=== PATIENT | male | born 1965 | race Caucasian/White ===

== ENCOUNTER 2019-07-14 07:28 | Emergency (ER) | payer BC, SELFPAY ==
[2019-07-14 07:30] VITALS: BP 169/95; PULSE 83; RESP 17; TEMP 35.9; O2SAT 98; BMI 27.6
--- NOTE | 2019-07-14 07:39 | ED.VIS.GEN ---
History of Present Illness Chief Complaint: Rash Narrative: This patient is a 53-year-old male who presents with chief complaint of shingles. He does have a history of shingles on multiple prior occasions. He initially began to have pain yesterday and then developed a rash. This is at his lower back and similar to prior episodes of shingles. He otherwise denies any recent illness. Past Medical History - Allergies and Home Meds Allergies/Adverse Reactions: Allergies promethazine [From Phenergan] Adverse Reaction (Verified 07/14/19 07:29) Swelling Primary Care Physician: Mateo Barney MD [Primary Care Provider] - Past Medical History: - - Peripheral vascular disease Smoking Status: Current every day smoker Review of Systems All systems negative except as indicated General: Denies: Fever Cardiovascular: Denies: Chest pain Respiratory: Denies: Dyspnea Gastrointestinal: Denies: Nausea, Vomiting Skin: Reports: Rash Physical Exam Vital Signs/Narrative: Vital Signs Temp Pulse Resp BP Pulse Ox 07/14/19 07:30 96.7 F L 83 17 169/95 H 98 Inital Vital Signs reviewed: Yes General: Well nourished Head: Normocephalic Eyes: EOMI ENT: Moist mucous membranes Cardiovascular: Regular rate Respiratory: No distress Skin: Rash - Patient has a vesicular rash on the lower back at about the L4 dermatome on the right Neurological: Alert Psychological: Normal affect Diagnostic/Tx/Re-eval - Medical Decision Making Patient's presentation is consistent with herpes zoster. He was prescribed acyclovir as well as a short course of [place] for acute pain control. He was advised to follow-up as an outpatient but does understand return for new or worsening symptoms and was discharged home. ED Disposition - Plan for ED Patient: Disposition: Home or Assisted Living Diagnosis: Shingles Instructions: ED Shingles Prescriptions: Hydrocodone Bitart/Apap 5-325 [[place] 5MG-325MG] 1 tab PO Q6H PRN PRN 3 Days #10 tab PRN Reason: Pain Prescription Printed Acyclovir [Zovirax] 800 mg PO 5X/DAY #35 tab Prescription Printed Referrals: Mateo Barney MD [Primary Care Provider] -
== END 2019-07-14 08:07 | disposition home or self-care (01) ==
LOC: ED 08:05
PROVIDERS: Emergency Provider Emergency Medicine; PCP Family Medicine
DX: B02.9 Zoster without complications (principal); F17.200 Nicotine dependence, unspecified, uncomplicated
CPT/HCPCS: 99282

== ENCOUNTER → 2019-12-31 11:36 | Outpatient (REF) | payer BC, SELFPAY | LOC: LABSPEC 11:36 | PROVIDERS: PCP Family Medicine; Visit Provider Family Medicine | DX: Z03.818 Encounter for observation for suspected exposure to other biological agents ruled out (principal) | CPT/HCPCS: 87635; U0003 ==

== ENCOUNTER 2020-03-16 08:06 | Emergency (ER) | payer BC, SELFPAY ==
[2020-03-16 08:08] VITALS: BP 149/40; PULSE 85; RESP 16; TEMP 35.8; O2SAT 97; BMI 26.6
[2020-03-16 08:11] VITALS: BP 149/40; PULSE 85; RESP 16; TEMP 35.8; O2SAT 97
--- NOTE | 2020-03-16 08:28 | RAD_ITS ---
STUDY: X-RAY CHEST REASON FOR EXAM: Male, 54 years old. SOB, nausea TECHNIQUE: Single AP portable view of the chest. COMPARISON: Comparison is made with prior study dated 09/11/2010. FINDINGS: EKG electrodes are seen. The lungs are clear and expanded. There is no demonstrated pleural abnormality. Normal size heart. Normal mediastinum and charo. Normal visualized pulmonary arteries. Normal visualized aortic arch and descending thoracic aorta. Normal visualized thoracic spine. Normal visualized ribs, clavicles, and shoulders. There is no demonstrated abnormality of the visualized soft tissue structures of the upper abdomen. RAD/Chest 1 View (Portable) IMPRESSION: Normal x-ray examination of the chest. Electronically Signed: Ryan Iglesias MD at 9:23 EST , Service support ,
--- NOTE | 2020-03-16 08:29 | ED.DCSUM_ITS ---
History of Present Illness Chief Complaint: Shortness of Breath Detail of Chief Complaint: Headache, nausea, vomiting, diarrhea Informant: Patient Onset: Days - 2 days Context: Gradual Onset Current Severity: Moderate Maximum Severity: Moderate Narrative: Patient presents with a migraine headache that started 2 days ago. He describes it as diffuse and location and throbbing in nature. He states typically he will take ibuprofen or Tylenol for his migraines but this did not help. He has had nausea and vomiting secondary to pain. He is also had diarrhea and some lower abdominal pain. He does describe some mild shortness of breath. No fever or chills. Patient states he did have a positive rapid Covid test in January however the confirmatory PCR test was negative. - Past Medical History (1) Migraines Status: Chronic Past Medical History - Allergies and Home Meds Allergies/Adverse Reactions: Allergies promethazine [From Phenergan] Adverse Reaction (Verified 03/16/20 08:08) Swelling Primary Care Physician: Mateo Barney MD [Primary Care Provider] - Prior records reviewed: Yes Smoking Status: Current every day smoker Review of Systems General: Denies: Chills, Fever Eyes: Denies: Visual changes - bilaterally ENT: Denies: Bilateral ear pain Cardiovascular: Denies: Chest pain Respiratory: Reports: Dyspnea, Cough Gastrointestinal: Reports: Abdominal pain, Nausea, Vomiting, Diarrhea Musculoskeletal: Denies: Swelling, Extremity Pain Neurological: Reports: Headache Hematologic: Denies: Easy bruising, Easy bleeding Allergy: Denies: Uticaria Physical Exam Vital Signs/Narrative: Vital Signs Temp Pulse Resp BP Pulse Ox 03/16/20 08:11 96.5 F L 85 16 149/40 H 97 03/16/20 08:08 96.5 F L 85 16 149/40 H 97 Inital Vital Signs reviewed: Yes General: Well nourished, Well developed Head: Normocephalic ENT: Moist mucous membranes Neck: Supple Cardiovascular: Regular rate, Regular rhythm Respiratory: No distress, CTA bilaterally Abdomen: Soft, Normal bowel sounds, Tender - Mild periumbilical tenderness.. N egative for: Guarding, Rebound tenderness Extremities: Nontender Skin: Normal color Neurological: Alert, Oriented x3 Psychological: Normal affect Diagnostic/Tx/Re-eval Chest X-Ray - ED: 1 View, Read by ED Physician, Chronic Changes Impressions Chest X-Ray 03/16/20 08:28 IMPRESSION: Normal x-ray examination of the chest. Electronically Signed: Ryan Iglesias MD at 9:23 EST , Service support , 03/16/20 08:28 Chest 1 View (Portable) [RAD] Stat Laboratory Results 03/16/20 03/16/20 03/16/20 08:40 08:40 09:04 WBC 11.1 H RBC 5.27 Hgb 15.6 Hct 47.0 MCV 89.2 MCH 29.6 MCHC 33.2 RDW Std Deviation 42.0 RDW Coeff of Taras 13.0 Plt Count 156 MPV 10.9 Immature Gran % (Auto) 0.500 Neut % (Auto) 66.6 Lymph % (Auto) 24.8 [place] % (Auto) 5.9 Eos % (Auto) 1.7 Baso % (Auto) 0.5 Absolute Neuts (auto) 7.4 Absolute Lymphs (auto) 2.76 Nucleated RBC % 0 Sodium Cancelled Potassium Cancelled Chloride Cancelled Carbon Dioxide Cancelled Anion Gap Cancelled BUN Cancelled Creatinine Cancelled Estim Creat Clear Calc Cancelled Est GFR (MDRD) Af Amer Cancelled Est GFR (MDRD) Non-Af Cancelled BUN/Creatinine Ratio Cancelled Glucose Cancelled Calcium Cancelled Urine Color Yellow Urine Clarity Clear Urine pH 5.0 Ur Specific [place] 1.020 Urine Protein Negative Urine Glucose (UA) Normal Urine Ketones Negative Urine Occult Blood 10 H Urine Nitrite Negative Urine Bilirubin Negative Urine Urobilinogen Normal Ur Leukocyte Esterase 25 H Urine RBC 0-5 SEEN Urine WBC 0-5 SEEN Ur Squamous Epith Cells 0-5 SEEN Urine Bacteria RARE Urine Mucus RARE 03/16/20 03/16/20 09:04 09:42 WBC RBC Hgb Hct MCV MCH MCHC RDW Std Deviation RDW Coeff of Taras Plt Count MPV Immature Gran % (Auto) Neut % (Auto) Lymph % (Auto) [place] % (Auto) Eos % (Auto) Baso % (Auto) Absolute Neuts (auto) Absolute Lymphs (auto) Nucleated RBC % Sodium Cancelled 142 Potassium Cancelled 4.1 Chloride Cancelled 112 H Carbon Dioxide Cancelled 27.0 Anion Gap Cancelled 3 L BUN Cancelled 14 Creatinine Cancelled 0.94 Estim Creat Clear Calc Cancelled 96.31 Est GFR (MDRD) Af Amer Cancelled 106 Est GFR (MDRD) Non-Af Cancelled 88 BUN/Creatinine Ratio Cancelled 14.8 Glucose Cancelled 109 H Calcium Cancelled 8.4 L Urine Color Urine Clarity Urine pH Ur Specific [place] Urine Protein Urine Glucose (UA) Urine Ketones Urine Occult Blood Urine Nitrite Urine Bilirubin Urine Urobilinogen Ur Leukocyte Esterase Urine RBC Urine WBC Ur Squamous Epith Cells Urine Bacteria Urine Mucus - Medical Decision Making Patient was given Toradol, Reglan, Benadryl, and IV fluids. On repeat evaluation headache is much improved. Chest x-ray is unremarkable. Blood work normal. Covid is pending at this time but will not change her management. Patient will be discharged and if his test is positive he will be contacted. He is comfortable with this plan. He is written off work tomorrow as well. ED Disposition - Plan for ED Patient: Disposition: Home or Assisted Living Diagnosis: Migraine, Viral syndrome Instructions: ED, Migraine (Classical), ED Viral Syndrome (Adult) Referrals: Mateo Barney MD [Primary Care Provider] - 1 Week if not improving
[2020-03-16 08:37] VITALS: O2SAT 98
[2020-03-16] MEDS: DiphenhydrAMINE 50 MG/ML Syringe 25 MG IV (08:42)
[2020-03-16] MEDS: 0.9% Normal Saline 1,000 ML 1000 ML IV (08:42)
[2020-03-16] MEDS: Ketorolac 30 MG/ML Syringe IV (08:43)
[2020-03-16] MEDS: Metoclopramide 10 MG/2 ML Vial IV (08:43)
[2020-03-16 08:52] LABS: Absolute Lymphocyte Count 2.76 X10^3/uL (0.83-4.51); Absolute Neutrophil Count 7.4 X10^3/uL (2.0-7.7); Basophil# 0.05 X10^3/uL; Basophil% 0.5 % (0-1); Eosinophil# 0.19 X10^3/uL; Eosinophils% 1.7 % (0-5); Hemoglobin 15.6 g/dL (13.0-16.5); Lymphocyte # 2.76 X10^3/ul (4.0); Lymphocyte % 24.8 % (19-41); Mean Corp Hgb Conc 33.2 g/dL (32-36); Mean Corpuscular Hgb 29.6 pg (27.0-32.0); Mean Corpuscular Volume 89.2 fL (80-94); Mean Platelet Vol. 10.9 fl (6.2-12.0); Monocyte# 0.65 X10^3/uL; Monocyte% 5.9 % (0-10); NRBC Flagged by Analyzer 0 % (0-5); Neutrophil # 7.41 X10^3/uL (2.7-7.7); Neutrophil % 66.6 % (47-70); Platelet Count 156 K/mm3 (150-450); Red Blood Count 5.27 M/mm3 (4.6-6.2); White Blood Count 11.1 K/mm3 (4.4-11.0)
[2020-03-16 09:17] LABS: Color, Urine Yellow (Yellow); Glucose, Dipstick Normal (Normal); Ketone-Dipstick Negative (Negative); Leukocyte Esterase-Dipstick 25 /ul (Negative); Nitrite-Dipstick Negative (Negative); Occult Blood-Urine 10 /ul (Negative); Protein-Dipstick Negative (Negative); Urine Bilirubin Dipstick Negative (Negative); Urine Clarity Clear (Clear); Urine Urobilinogen Normal (Normal)
[2020-03-16 09:25] LABS: Bacteria RARE /hpf (None Seen); Mucous, Urine RARE /hpf (<or=2+); Red Blood Cells-Urine 0-5 SEEN /hpf (0-5); Squamous Epithelial Cells - UA 0-5 SEEN /hpf (0-5); White Blood Cells 0-5 SEEN /hpf (0-5)
[2020-03-16 09:36] VITALS: BP 148/94; PULSE 76; RESP 14; TEMP 36.1; O2SAT 98
[2020-03-16 10:11] LABS: Anion Gap 3 (5-15); BUN 14 mg/dL (7-18); BUN/Creat Ratio 14.8 RATIO (10-20); Calcium,Total 8.4 mg/dL (8.5-10.1); Chloride 112 mmol/L (98-107); Creatinine, Serum 0.94 mg/dL (0.70-1.30); EST Glomerular Filtration Rate 88 mL/min (>60); Est Glom Filt Rate - Afr Amer 106 mL/min (>60); Estimated Creatinine Clearance 96.31 ml/min; Glucose 109 mg/dL (74-106); Potassium 4.1 mmol/L (3.5-5.1); Sodium Level 142 mmol/L (136-145)
[2020-03-16 10:47] VITALS: BP 149/86; PULSE 69; RESP 13; O2SAT 97
== END 2020-03-16 10:49 | disposition home or self-care (01) ==
PROVIDERS: Emergency Provider Emergency Medicine; PCP Family Medicine
DX: G43.909 Migraine, unspecified, not intractable, without status migrainosus (principal); B34.9 Viral infection, unspecified; F17.200 Nicotine dependence, unspecified, uncomplicated
CPT/HCPCS: 36415; 71045; 80048; 81001; 85025; 87635; 96361; 96374; 96375; 99283; J7030; A4216; U0002

== ENCOUNTER 2020-05-10 09:30 | Emergency (ER) | payer BC, SELFPAY ==
[2020-05-10 09:32] VITALS: BP 140/113; PULSE 77; RESP 14; TEMP 36.2; O2SAT 97; BMI 26.9
--- NOTE | 2020-05-10 10:41 | CT_ITS ---
STUDY: CT ABDOMEN AND PELVIS WITH CONTRAST REASON FOR EXAM: Male, 54 years old. Abdominal pain. Recent cholecystectomy. -- IV PO Contrast RADIATION DOSAGE (If Supplied By Facility): CTDIvol = ( 16.51 ) mGy, DLP = ( 1054.09 ) mGycm TECHNIQUE: Transaxial images were obtained from the dome of the diaphragm to the symphysis pubis with oral contrast. Oral and amp; IV Gastrografin and amp; 100mL Isovue-300 was administered. Sagittal and coronal images were reconstructed. Individualized dose optimization techniques were used for this CT. COMPARISON: Comparison is made with prior examination dated 09/08/2010. FINDINGS: Minimal degree of increased markings at the lung bases suggestive of atelectasis. Coronary artery calcification. There is decreased attenuation of the liver consistent with steatosis. The patient is status post cholecystectomy. Normal spleen. Normal pancreas. Normal bilateral adrenal glands. There is a 1.87 m cyst in the upper pole of the right kidney. 3 mm nonobstructive calculus in the midpole calyx of the right kidney. One centimeters cyst in the medial inferior pole of the right kidney. Small cysts in the left kidney. Normal visualized stomach. Normal small intestine. Normal colon. The appendix is visualized and appears normal. There is scattered atherosclerotic calcification of the abdominal aorta, without a demonstrated aneurysm. Normal inferior vena cava. Normal retroperitoneum. Normal urinary bladder. Normal abdominal wall. Straightening of the normal lumbar lordosis. CT/Abdomen/Pelvis WITH Contrast IMPRESSION: Mild degree of fatty infiltration of the liver. Mild degree of basilar atelectasis. Small bilateral renal cysts. No acute abnormality is seen. Electronically Signed: Ryan Iglesias MD at 13:09 EDT , Service support ,
--- NOTE | 2020-05-10 10:46 | ED.VISSUMM ---
- ER Visit Summary Date of Service: 05/10/20 Chief Complaint: Abdominal pain History of Present Illness: The patient is a 54 M who presents with abdominal pain that began yesterday. Patient states that it is gradually gotten worse. Patient states the pain is diffuse. Patient describes the pain is sharp. Patient states the pain is worse with standing and better with laying down. Patient admits to some nausea but denies any vomiting. Patient denies any diarrhea, melena, or hematochezia. Patient denies any dysuria or hematuria. Patient states the pain does radiate into his back. Patient states he had a cholecystectomy [address] Eubanks. Patient states he called his office and the patient was referred to the emergency department. Physical Examination: Vital signs are stable except for an elevated blood pressure 140/113. Patient is afebrile. Patient is in no acute distress. Oral mucosa is pink and moist. Neck is supple. Trachea is midline. There is no JVD. Heart was regular rate and rhythm. Lungs are clear and equal bilateral. Abdomen is soft. Bowel sounds are hypoactive. There is diffuse tenderness. There is no rebound or guarding noted. Cranial nerves II through XII are intact. There is no focal motor or sensory deficit noted. Extremities are intact. There is no calf tenderness or edema. Test Results: CBC shows a slight leukocytosis of 11.3. Comprehensive metabolic profile was obtained and was within normal limits with the exception of a slightly elevated alk phos of 119 and a glucose of 161. Lipase was normal. Urinalysis does not show any evidence of urinary tract infection. CT scan of the abdomen pelvis was obtained. There is no acute abnormality noted. This was interpreted by the radiologist and reviewed by myself. Emergency Department Course and Treatment: Was given morphine and Zofran initially. Patient had no improvement with this. Patient was given a dose of Dilaudid. Patient had some improvement with this but his pain started to come back. Patient was given a repeat dose of Dilaudid. Patient is feeling comfortable on reevaluation. Patient was given a prescription for short course of Percocet. Case was discussed with Dr. Eubanks. He will follow up with the patient in the office. Patient understood and was agreeable with the plan. All questions were answered. Disposition: Discharge home Impression: 1. Abdominal pain This note was generated with [employer] software. It may contain incorrect words, spelling, and punctuation that were not noted in review of the chart prior to signing ED Disposition - Plan for ED Patient: Disposition: Home or Assisted Living Diagnosis: Abdominal pain Instructions: ED Unknown Causes of Abdominal ... Referrals: Heber Eubanks MD [STAFF PHYSICIAN] - 3-5 Days
[2020-05-10] MEDS: Morphine 4 MG/ML Syringe IV (10:48)
[2020-05-10] MEDS: 0.9% Normal Saline 1,000 ML 1000 ML IV (10:48)
[2020-05-10] MEDS: Ondansetron 4 MG/2 ML Vial IV (10:49)
[2020-05-10 10:50] LABS: Absolute Lymphocyte Count 3.34 X10^3/uL (0.83-4.51); Basophil# 0.03 X10^3/uL; Basophil% 0.3 % (0-1); Eosinophil# 0.21 X10^3/uL; Eosinophils% 1.9 % (0-5); Hematocrit 47.3 % (40-54); Hemoglobin 15.4 g/dL (13.0-16.5); Lymphocyte # 3.34 X10^3/ul (4.0); Lymphocyte % 29.6 % (19-41); Mean Corp Hgb Conc 32.6 g/dL (32-36); Mean Corpuscular Hgb 29.2 pg (27.0-32.0); Mean Corpuscular Volume 89.8 fL (80-94); Mean Platelet Vol. 11.3 fl (6.2-12.0); Monocyte# 0.62 X10^3/uL; Monocyte% 5.5 % (0-10); NRBC Flagged by Analyzer 0 % (0-5); Neutrophil # 7.04 X10^3/uL (2.7-7.7); Neutrophil % 62.4 % (47-70); Platelet Count 167 K/mm3 (150-450); RBC Distribution Width CV 12.6 % (11.6-14.6); RBC Distribution Width SD 41.6 fl (35.1-43.9); Red Blood Count 5.27 M/mm3 (4.6-6.2); White Blood Count 11.3 K/mm3 (4.4-11.0)
[2020-05-10 11:06] LABS: ALB/GLOB Ratio 0.8 RATIO (0.9-2.4); AST(SGOT) 14 U/L (15-37); Alanine Aminotransfer ALT/SGPT 30 U/L (16-61); Albumin, Serum 3.4 g/dL (3.2-5.0); Alkaline Phosphatase 119 U/L (45-117); Anion Gap 6 (5-15); BUN 14 mg/dL (7-18); BUN/Creat Ratio 13.5 RATIO (10-20); Calcium,Total 9.3 mg/dL (8.5-10.1); Chloride 106 mmol/L (98-107); Creatinine, Serum 1.04 mg/dL (0.70-1.30); EST Glomerular Filtration Rate 78 mL/min (>60); Est Glom Filt Rate - Afr Amer 95 mL/min (>60); Estimated Creatinine Clearance 84.47 ml/min; Globulin 4.1 g/dL (2.2-4.2); Glucose 161 mg/dL (74-106); Lipase 129 U/L (73-393); Potassium 4.1 mmol/L (3.5-5.1); Protein, Total 7.5 g/dL (6.4-8.2); Sodium Level 138 mmol/L (136-145)
[2020-05-10] MEDS: HYDROmorphone 0.5 MG/0.5 ML SYRINGE IV (11:25)
[2020-05-10 11:57] LABS: Mucous, Urine 0 SEEN /hpf (<or=2+); Red Blood Cells-Urine 0 SEEN /hpf (0-5); Squamous Epithelial Cells - UA 0 SEEN /hpf (0-5); White Blood Cells 0 SEEN /hpf (0-5)
[2020-05-10 11:59] LABS: Color, Urine Yellow (Yellow); Glucose, Dipstick Normal (Normal); Ketone-Dipstick Negative (Negative); Leukocyte Esterase-Dipstick Negative /ul (Negative); Nitrite-Dipstick Negative (Negative); Occult Blood-Urine Negative /ul (Negative); Protein-Dipstick Negative (Negative); Specific Gravity, Urine 1.015 (1.002-1.030); Urine Bilirubin Dipstick Negative (Negative); Urine Clarity Clear (Clear); Urine Urobilinogen Normal (Normal)
[2020-05-10 12:10] LABS: Amorphous Sediment R; Bacteria RARE /hpf (None Seen)
== END 2020-05-10 14:10 | disposition home or self-care (01) ==
PROVIDERS: Emergency Provider Emergency Medicine
DX: R10.84 Generalized abdominal pain (principal); Z72.0 Tobacco use
CPT/HCPCS: 74177; 80053; 81001; 83690; 85025; 96374; 96375; 99284; J7030; Q9967; A4216; J2405

== ENCOUNTER 2020-07-16 12:40 | Emergency (ER) | payer BC, SELFPAY ==
[2020-07-16 12:41] VITALS: BP 133/93; PULSE 105; RESP 16; TEMP 36.3; O2SAT 96; BMI 25.7
[2020-07-16] MEDS: 0.9% Normal Saline 1,000 ML 1000 ML IV (13:06)
--- NOTE | 2020-07-16 13:06 | EDS_ITS ---
HPI History of Present Illness Chief Complaint: Hyperglycemia Informant: patient Onset/Context/Timing Onset: Days Context: Gradual Onset Timing: Continuous Current Severity: Moderate Maximum Severity: Moderate Narrative Narrative: The patient is a 54-year-old male with medical history significant for coronary vascular disease and hypertension who presents to the emergency department with elevated blood sugar. The patient states starting on Sunday, he began to have some dizziness and intermittent blurred vision. He states that he works at a [employer]. He took his blood sugar today and it was 400. He has no history of diabetes. He has not been on any prednisone recently. He denies change in diet. Has not had fever or chills. He is otherwise been in his normal state of health. Prior similar symptoms: No Recent Illness/Hospitalization: No PFSH PFSH Medical History Cholecystectomy planned Coronary artery disease GERD (gastroesophageal reflux disease) Hyperlipidemia Home Medications multivitamin [Daily Multiple Vitamin] 1 ea PO DAILY 12/07/16 [History Last Taken Unknown] aspirin 81 mg PO DAILY@0800 03/16/20 [History Last Taken Unknown] atorvastatin 20 mg PO DAILY 05/10/20 [History Last Taken Unknown] clopidogrel 75 mg PO DAILY 05/10/20 [History Last Taken Unknown] metformin 500 mg PO BID #60 tab 07/16/20 [Rx Last Taken Unknown] omeprazole 20 mg PO DAILY 07/16/20 [History Last Taken Unknown] Allergy/AdvReac Type Severity Reaction Status Date / Time simvastatin Allergy NEEDS Verified 07/16/20 12:44 FOLLOW-UP tramadol Allergy NEEDS Verified 07/16/20 12:44 FOLLOW-UP varenicline Allergy NEEDS Verified 07/16/20 12:44 FOLLOW-UP promethazine [From Phenergan] AdvReac Swelling Verified 05/10/20 09:32 Social History Smoking Status: Current every day smoker tobacco type: cigarettes ROS ROS ED Constitutional Constitutional ED: Denies chills or fever(s) Eyes Eyes: Reports blurry vision ENT ENT ED: Denies ear pain or sore throat Cardiovascular Cardiovascular: Denies chest pain or palpitations Respiratory/Chest Respiratory/Chest: Denies cough, dyspnea or dyspnea on exertion Gastrointestinal Gastrointestinal: Denies abdominal pain, nausea or vomiting Genitourinary Genitourinary ED: Denies dysuria or urinary frequency Musculoskeletal Musculoskeletal: Denies arthralgias or myalgias Integumentary Denies rash Neurologic Neurologic: Denies headache(s) or paresthesias Psychiatric Psychiatric: Denies anxiety or depression Endocrine Endocrinology: Reports polydipsia and polyuria Allergic/Immunologic Allergic/Immunologic ED: Denies urticaria EXAM Physical Exam Const Vital Signs: 07/16/20 12:41 07/16/20 12:49 Temperature 97.3 F L Temperature Source Temporal Pulse Rate 105 H Respiratory Rate 16 Respiratory Effort Normal Non-Labored Respiratory Pattern Normal Blood Pressure 133/93 H Blood Pressure Mean 106 Pulse Ox 96 Oxygen Delivery Method Room Air Positive well nourished and well developed General Appearance ED: well developed HEENT Reports normocephalic, head/scalp atraumatic and moist mucous membranes Eyes PERRL and EOMs intact bilaterally Neck no lymphadenopathy and supple General: Negative for tenderness Chest Wall inspection of chest normal Resp normal respiratory effort and clear to auscultation bilaterally Cardio regular rate, regular rhythm and no murmurs GI normal to inspection, nondistended, normoactive bowel sounds Palpation: Negative for tender, guarding or rebound tenderness present Back/Spine no CVA tenderness Cervical Spine: Negative for cervical spine tenderness Thoracic Spine / Upper Back: Negative for thoracic spinal tenderness Extremity normal to inspection General Extremety ED: Negative for tenderness Neuro oriented x3 and CN's II-XII intact bilaterally Neuro Narrative: No focal deficits appreciated. Sensorium / Orientation: alert Psych mental status grossly normal Skin no rashes or lesions noted, no wounds and skin turgor normal MDM MDM MDM Narrative Medical decision making narrative: Patient presents to the emergency department with elevated blood sugar. He has no history of diabetes. Metabolic work-up was pursued. Labs demonstrate a glucose of 474, however his bicarb is normal. His anion gap is normal. He has no serum ketones. Patient was hydrated. He is given subcutaneous insulin. He is feeling improved. Plan will be to get his blood sugar to a more appropriate level and start him on oral antihyperglycemics. He does have follow-up in place next week with his primary care. He is comfortable with this plan of care. Impression 1. 1. New onset diabetes Lab Data Attestation: I reviewed the patient's lab results. Labs: Laboratory Results - last 24 hr 07/16/20 07/16/20 07/16/20 13:05 13:05 13:05 WBC 10.9 RBC 4.97 Hgb 14.7 Hct 41.8 MCV 84.1 MCH 29.6 MCHC 35.2 RDW Std Deviation 37.1 RDW Coeff of Taras 12.2 Plt Count 137 L MPV 12.3 H Sodium 131 L Potassium 4.2 Chloride 98 Carbon Dioxide 23.0 Anion Gap 10 BUN 18 Creatinine 1.29 Estim Creat Clear Calc 68.10 Est GFR (MDRD) Af Amer 74 Est GFR (MDRD) Non-Af 61 BUN/Creatinine Ratio 14.0 Glucose 474 H* Hemoglobin A1c Calcium 8.6 Total Bilirubin 0.60 AST 27 ALT 33 Alkaline Phosphatase 189 H Total Protein 7.8 Albumin 3.3 Globulin 4.5 H Albumin/Globulin Ratio 0.7 L Acetone Level NEGATIVE 07/16/20 13:05 WBC RBC Hgb Hct MCV MCH MCHC RDW Std Deviation RDW Coeff of Taras Plt Count MPV Sodium Potassium Chloride Carbon Dioxide Anion Gap BUN Creatinine Estim Creat Clear Calc Est GFR (MDRD) Af Amer Est GFR (MDRD) Non-Af BUN/Creatinine Ratio Glucose Hemoglobin A1c 11.4 H Calcium Total Bilirubin AST ALT Alkaline Phosphatase Total Protein Albumin Globulin Albumin/Globulin Ratio Acetone Level Discharge Plan Triage Chief Complaint: Hyperglycemia ED Provider: Tristen Cheung Dx/Rx/DC Orders Instructions: ED Hyperglycemia New Susp Diabetes Prescriptions: New metformin 500 mg tablet 500 mg PO BID Qty: 60 RF: 0 No Action multivitamin [Daily Multiple] 1 EACH tablet 1 ea PO DAILY RF: 0 aspirin 81 MG tablet,chewable 81 mg PO DAILY@0800 RF: 0 atorvastatin 20 MG tablet 20 mg PO DAILY RF: 0 clopidogrel 75 MG tablet 75 mg PO DAILY RF: 0 omeprazole 20 mg Capsule,Delayed Release(Dr/Ec) 20 mg PO DAILY RF: 0 Primary Care Provider: Mateo Brantley Referrals: Mateo Brantley MD [Primary Care Provider] -
[2020-07-16 13:14] LABS: Hematocrit 41.8 % (40-54); Hemoglobin 14.7 g/dL (13.0-16.5); Mean Corp Hgb Conc 35.2 g/dL (32-36); Mean Corpuscular Hgb 29.6 pg (27.0-32.0); Mean Corpuscular Volume 84.1 fL (80-94); Mean Platelet Vol. 12.3 fl (6.2-12.0); Platelet Count 137 K/mm3 (150-450); RBC Distribution Width CV 12.2 % (11.6-14.6); RBC Distribution Width SD 37.1 fl (35.1-43.9); Red Blood Count 4.97 M/mm3 (4.6-6.2); White Blood Count 10.9 K/mm3 (4.4-11.0)
[2020-07-16 13:35] LABS: Hemoglobin A1c 11.4 % (3.8-5.6)
[2020-07-16 13:36] LABS: ALB/GLOB Ratio 0.7 RATIO (0.9-2.4); AST(SGOT) 27 U/L (15-37); Alanine Aminotransfer ALT/SGPT 33 U/L (16-61); Albumin, Serum 3.3 g/dL (3.2-5.0); Alkaline Phosphatase 189 U/L (45-117); Anion Gap 10 (5-15); BUN 18 mg/dL (7-18); Calcium,Total 8.6 mg/dL (8.5-10.1); Chloride 98 mmol/L (98-107); Creatinine, Serum 1.29 mg/dL (0.70-1.30); EST Glomerular Filtration Rate 61 mL/min (>60); Est Glom Filt Rate - Afr Amer 74 mL/min (>60); Globulin 4.5 g/dL (2.2-4.2); Glucose 474 mg/dL (74-106); Potassium 4.2 mmol/L (3.5-5.1); Protein, Total 7.8 g/dL (6.4-8.2); Sodium Level 131 mmol/L (136-145)
[2020-07-16] MEDS: Insulin Lispro 100 UNIT/ML INSULN.PEN 12 UNIT SC (13:56)
[2020-07-16 14:56] VITALS: BP 129/90; PULSE 76; RESP 14; O2SAT 98
[2020-07-16 15:00] LABS: Bedside Glucose 340 mg/dL (70-110)
[2020-07-16] MEDS: Insulin Lispro 100 UNIT/ML INSULN.PEN 10 UNIT SC (15:10)
[2020-07-16 16:01] LABS: Bedside Glucose 245 mg/dL (70-110)
[2020-07-16 16:16] VITALS: BP 119/71; PULSE 63; RESP 14; O2SAT 98
== END 2020-07-16 16:16 | disposition home or self-care (01) ==
LOC: ED 13:20
PROVIDERS: Emergency Provider Emergency Medicine; PCP Family Medicine
DX: E11.65 Type 2 diabetes mellitus with hyperglycemia (principal); I25.10 Atherosclerotic heart disease of native coronary artery without angina pectoris; K21.9 Gastro-esophageal reflux disease without esophagitis; E78.5 Hyperlipidemia, unspecified; F17.210 Nicotine dependence, cigarettes, uncomplicated; Z79.899 Other long term (current) drug therapy
CPT/HCPCS: 80053; 82009; 82962; 83036; 85027; 96360; 99283; J7030; A4216

== ENCOUNTER 2020-07-16 23:50 | Emergency (ER) | payer BC, SELFPAY ==
[2020-07-16 12:41] VITALS: BMI 25.7
[2020-07-16 23:50] VITALS: BP 170/91; PULSE 91; RESP 18; TEMP 36; O2SAT 98; BMI 26.4
[2020-07-17 00:11] LABS: Bedside Glucose > 500 mg/dL (70-110)
[2020-07-17] MEDS: metFORMIN HCl 500 MG Tablet PO (00:44)
[2020-07-17 01:21] LABS: Bedside Glucose 470 mg/dL (70-110)
--- NOTE | 2020-07-17 02:05 | EDS_ITS ---
HPI History of Present Illness Chief Complaint: Hyperglycemia Informant: patient Narrative Narrative: 54-year-old male states that he was diagnosed with diabetes today. He had a hemoglobin A1c in March that was 7.3. Today's hemoglobin A1c was 11.4. His biggest complaint is change in vision for which she saw ophthalmology who noted edema and felt that this is related to diabetes. He was started on Metformin 500 mg today but has not started it yet. While in the emergency department he received several doses of insulin. Basic blood work was reviewed. He is not dehydrated. There is no gap on today's labs. Patient return to the emergency department tonight after ingesting 2 meals taken his blood sugar which read high. His brother who is a nurse advised him to come back to the hospital. [facility] Medical History Cholecystectomy planned Coronary artery disease GERD (gastroesophageal reflux disease) Hyperlipidemia Home Medications multivitamin [Daily Multiple Vitamin] 1 ea PO DAILY 12/07/16 [History Last Taken Unknown] aspirin 81 mg PO DAILY@0800 03/16/20 [History Last Taken Unknown] atorvastatin 20 mg PO DAILY 05/10/20 [History Last Taken Unknown] clopidogrel 75 mg PO DAILY 05/10/20 [History Last Taken Unknown] omeprazole 20 mg PO DAILY 07/16/20 [History Last Taken Unknown] glimepiride [Amaryl] 2 mg PO DAILY #30 tab 07/17/20 [Rx Last Taken Unknown] metformin 500 mg PO BID #60 tab 07/17/20 [Rx Last Taken Unknown] Allergy/AdvReac Type Severity Reaction Status Date / Time simvastatin Allergy NEEDS Verified 07/16/20 23:54 FOLLOW-UP tramadol Allergy NEEDS Verified 07/16/20 23:54 FOLLOW-UP varenicline Allergy NEEDS Verified 07/16/20 23:54 FOLLOW-UP promethazine [From Phenergan] AdvReac Swelling Verified 07/16/20 23:54 Social History Smoking Status: Current every day smoker tobacco type: cigarettes ROS ROS ED Constitutional Constitutional ED: Denies chills or weight loss Eyes Eyes: Reports blurry vision and change in vision; Denies diplopia ENT ENT ED: Denies ear pain, rhinorrhea or sore throat Cardiovascular Cardiovascular: Denies chest pain, orthopnea, palpitations or racing heartbeat Respiratory/Chest Respiratory/Chest: Denies cough, dyspnea or orthopnea Gastrointestinal Gastrointestinal: Denies abdominal pain, diarrhea, nausea or vomiting Genitourinary Genitourinary ED: Denies dysuria, hematuria or urinary frequency Musculoskeletal Musculoskeletal: Denies arthralgias or myalgias Integumentary Denies abscess or rash Neurologic Neurologic: Denies headache(s) or weakness Psychiatric Psychiatric: Denies anxiety, depression, suicidal ideation or suicidal thoughts Endocrine Endocrinology: Denies polydipsia, polyphagia or polyuria Allergic/Immunologic Allergic/Immunologic ED: Denies mouth swelling, tongue swelling or urticaria EXAM Physical Exam Const Vital Signs: 07/16/20 23:50 Temperature 96.8 F L Temperature Source Temporal Pulse Rate 91 Respiratory Rate 18 Blood Pressure 170/91 H Blood Pressure Mean 117 Pulse Ox 98 Oxygen Delivery Method Room Air Positive well nourished and well developed General Appearance ED: well developed HEENT Reports normocephalic, head/scalp atraumatic and moist mucous membranes Eyes PERRL and EOMs intact bilaterally Neck no lymphadenopathy, supple and no JVD Resp normal respiratory effort and clear to auscultation bilaterally Cardio regular rate, regular rhythm and no murmurs GI normal to inspection, nondistended, normoactive bowel sounds and non-tender Palpation: soft Back/Spine no CVA tenderness and normal ROM Extremity normal to inspection General Extremety ED: Negative for edema General Extremity: Negative for edema Neuro oriented x3 and CN's II-XII intact bilaterally Sensorium / Orientation: alert Motor Exam: strength 5/5 throughout Psych mental status grossly normal Mood & Affect: Negative for depressed or tearful Skin no rashes or lesions noted and no wounds MDM MDM MDM Narrative Medical decision making narrative: I reviewed the patient's blood work from earlier in the day. Hemoglobin A1c was 11.4. I suspect the patient's blood sugars have been 400-500 for a while. He received 10 units of insulin IV as well as a dose of Metformin. I do not think the patient needs to be admitted. I think he needs to be started on appropriate medications. He should expect medication changes until he finds a regimen that keeps his blood sugars down. Patient will be discharged home. I am going to have him continue the Metformin 500 mg twice a day for the first week and also can give him Amaryl 2 mg once a day. He needs to see his doctor next week. Lab Data Labs: Laboratory Results - last 24 hr 07/16/20 07/17/20 23:59 01:14 POC Glucose > 500 H* 470 H* Discharge Plan Triage Chief Complaint: Hyperglycemia ED Provider: Heber Obrien Dx/Rx/DC Orders Clinical Impression: Diabetes mellitus, Hyperglycemia Instructions: ED Diabetic Hyperglycemia Prescriptions: New glimepiride [Amaryl] 2 mg tablet 2 mg PO DAILY Qty: 30 RF: 0 metformin 500 mg tablet 500 mg PO BID Qty: 60 RF: 0 Discontinued metformin 500 mg tablet 500 mg PO BID Qty: 60 RF: 0 No Action multivitamin [Daily Multiple] 1 EACH tablet 1 ea PO DAILY RF: 0 aspirin 81 MG tablet,chewable 81 mg PO DAILY@0800 RF: 0 atorvastatin 20 MG tablet 20 mg PO DAILY RF: 0 clopidogrel 75 MG tablet 75 mg PO DAILY RF: 0 omeprazole 20 mg Capsule,Delayed Release(Dr/Ec) 20 mg PO DAILY RF: 0 Primary Care Provider: Mateo Brantley Referrals: Mateo Brantley MD [Primary Care Provider] - As soon as possible Disposition Disposition: Home, self care
[2020-07-17 02:16] LABS: Bedside Glucose 432 mg/dL (70-110)
[2020-07-17 02:48] VITALS: BP 131/78; PULSE 78; RESP 19; O2SAT 99
== END 2020-07-17 02:49 | disposition home or self-care (01) ==
PROVIDERS: Emergency Provider Emergency Medicine; PCP Family Medicine
DX: E11.65 Type 2 diabetes mellitus with hyperglycemia (principal); Z79.84 Long term (current) use of oral hypoglycemic drugs; I25.10 Atherosclerotic heart disease of native coronary artery without angina pectoris; K21.9 Gastro-esophageal reflux disease without esophagitis; E78.5 Hyperlipidemia, unspecified; F17.210 Nicotine dependence, cigarettes, uncomplicated; Z79.899 Other long term (current) drug therapy
CPT/HCPCS: 82962; 99283; A4216

== ENCOUNTER 2021-05-10 16:13 | Emergency (ER) | payer BC, SELFPAY ==
[2021-05-10 16:14] VITALS: BP 128/100; PULSE 90; RESP 16; TEMP 36.4; O2SAT 98; BMI 23.0
--- NOTE | 2021-05-10 16:45 | EX.ED.UPPERE ---
HPI History of Present Illness HPI Narrative: Patient presents with laceration to his right hand that occurred today. Patient states he was cleaning out the back of his truck when his hand went across a piece of broken glass. Patient does not think there is any glass in the wound. Patient states the bleeding has been persistent. Patient denies any paresthesias or weakness. Patient states his last tetanus was within 5 years. Patient denies any other injuries. Chief Complaint: Laceration Informant: patient Occured/Mechanism Comment: Cut on piece of broken glass Onset/Context/Timing Onset: Today Context: Sudden Onset Timing: Continuous Quality of Pain: Burning Location: Right hand Worsened by: Nothing Relieved by: Pressure Associated Symptoms Associated Symptoms: Negative for Parasthesia, Weakness and Loss of Funtion Narrative Tetanus Immunization: <5 years PFSH PFSH Medical History Cholecystectomy planned Coronary artery disease GERD (gastroesophageal reflux disease) Hyperlipidemia Home Medications multivitamin [Daily Multiple Vitamin] 1 ea PO DAILY 12/07/16 [History Last Taken Unknown] aspirin 81 mg PO DAILY@0800 03/16/20 [History Last Taken Unknown] atorvastatin 20 mg PO DAILY 05/10/20 [History Last Taken Unknown] clopidogrel 75 mg PO DAILY 05/10/20 [History Last Taken Unknown] omeprazole 20 mg PO DAILY 07/16/20 [History Last Taken Unknown] glimepiride [Amaryl] 2 mg PO DAILY #30 tab 07/17/20 [Rx Last Taken Unknown] metformin 500 mg PO BID #60 tab 07/17/20 [Rx Last Taken Unknown] cephalexin 500 mg PO Q6 #40 capsule 05/10/21 [Rx Last Taken Unknown] Allergy/AdvReac Type Severity Reaction Status Date / Time simvastatin Allergy NEEDS Verified 05/10/21 16:15 FOLLOW-UP tramadol Allergy NEEDS Verified 05/10/21 16:15 FOLLOW-UP varenicline Allergy NEEDS Verified 05/10/21 16:15 FOLLOW-UP promethazine [From Phenergan] AdvReac Swelling Verified 05/10/21 16:15 Social History Smoking Status: Current every day smoker tobacco type: cigarettes ROS ROS ED Constitutional Constitutional ED: Denies chills or fever(s) Eyes Eyes: Denies blurry vision or change in vision ENT ENT ED: Denies rhinorrhea or sore throat Cardiovascular Cardiovascular: Denies chest pain or palpitations Respiratory/Chest Respiratory/Chest: Denies cough or dyspnea Gastrointestinal Gastrointestinal: Denies nausea or vomiting Genitourinary Genitourinary ED: Denies dysuria or hematuria Musculoskeletal Musculoskeletal: Denies back pain or neck pain Integumentary Denies abscess or rash Neurologic Neurologic: Denies headache(s) or weakness Allergic/Immunologic Allergic/Immunologic ED: Denies mouth swelling or urticaria EXAM Physical Exam Const Vital Signs: 05/10/21 16:14 Temperature 97.6 F L Temperature Source Temporal Pulse Rate 90 Respiratory Rate 16 Blood Pressure 128/100 H Blood Pressure Mean 109 Pulse Ox 98 Oxygen Delivery Method Room Air Positive well nourished and well developed General Appearance ED: well developed and NAD HEENT Reports moist mucous membranes Neck full ROM Extremity Extremity Narrative: There is a 2 cm full-thickness linear laceration over the palmar aspect of the right hand over the distal fifth metacarpal. There is moderate gapping of the wound margins. There is some mild bleeding noted. There are no foreign bodies visualized. There is good range of motion of all digits of the right hand. Sensation was intact to light touch in all digits. Capillary refill was less than 2 seconds in all digits. Neuro oriented x3, CN's II-XII intact bilaterally, moves all extremities, no focal motor deficits and no sensory deficits noted Sensorium / Orientation: alert Psych mental status grossly normal MDM MDM MDM Narrative Medical decision making narrative: X-rays of the right hand were obtained. There are 3 views. On my interpretation, there is no acute fracture. There is no acute foreign body noted. There is no dislocation. There is no soft tissue swelling. Radiologist also interpreted the x-rays and agrees. The wound was cleaned and irrigated with copious amounts of normal saline. The wound was anesthetized with 1% plain lidocaine locally. The wound was closed with 4 simple interrupted #4-0 nylon sutures under sterile technique. Patient tolerated the procedure well. Bacitracin dressing was applied. Patient was given a dose of Keflex here. Patient was given a prescription for Keflex. Patient was instructed to take Tylenol or ibuprofen as needed for pain. Patient was instructed to keep the hand elevated. Patient was instructed to follow-up with his primary care physician in 7 days for wound recheck and suture removal. Patient understood and was agreeable with the plan. All questions were answered. Discharge Plan Triage Chief Complaint: Laceration ED Provider: Stephane Rai Dx/Rx/DC Orders Clinical Impression: Laceration of hand, right Instructions: ED Laceration, Hand: All Closures Prescriptions: New cephalexin [cephalexin] 500 MG capsule 500 mg PO Q6 Qty: 40 RF: 0 No Action multivitamin [Daily Multiple] 1 EACH tablet 1 ea PO DAILY RF: 0 aspirin 81 MG tablet,chewable 81 mg PO DAILY@0800 RF: 0 atorvastatin 20 MG tablet 20 mg PO DAILY RF: 0 clopidogrel 75 MG tablet 75 mg PO DAILY RF: 0 omeprazole 20 mg Capsule,Delayed Release(Dr/Ec) 20 mg PO DAILY RF: 0 glimepiride [Amaryl] 2 mg tablet 2 mg PO DAILY Qty: 30 RF: 0 metformin 500 mg tablet 500 mg PO BID Qty: 60 RF: 0 Primary Care Provider: Mateo Brantley Referrals: Mateo Brantley MD [Primary Care Provider] - 7 Days for suture removal Disposition Disposition: Home, Self Care
--- NOTE | 2021-05-10 17:00 | RAD_ITS ---
HISTORY: Trauma, injury/Pain EXAMINATION/TECHNIQUE: XR Hand Min 3 Views: COMPARISON: None FINDINGS: BONES/JOINTS: No acute fracture or dislocation. Preservation of the joint spaces. No sclerotic or destructive changes observed. SOFT TISSUES: No soft tissue swelling or gas. No radiopaque foreign body. RAD/Hand Min 3 Views IMPRESSION: No acute bony abnormality. at 1724 Reported and signed by: Manuel Herron MD Electronically Signed: Manuel Herron MD at 17:22 EDT ,
[2021-05-10] MEDS: Lidocaine 1% (20 ml mdv) 20 ML Vial INFILT (17:03)
[2021-05-10] MEDS: Cephalexin 500 MG Capsule PO (18:21)
== END 2021-05-10 18:27 | disposition home or self-care (01) ==
PROVIDERS: Emergency Provider Emergency Medicine; PCP Family Medicine; Visit Provider Emergency Medicine
DX: S61.411A Laceration without foreign body of right hand, initial encounter (principal); W25.XXXA Contact with sharp glass, initial encounter; I25.10 Atherosclerotic heart disease of native coronary artery without angina pectoris; E78.5 Hyperlipidemia, unspecified; K21.9 Gastro-esophageal reflux disease without esophagitis; F17.210 Nicotine dependence, cigarettes, uncomplicated; Z79.82 Long term (current) use of aspirin; Z79.02 Long term (current) use of antithrombotics/antiplatelets; Z79.84 Long term (current) use of oral hypoglycemic drugs; Z79.899 Other long term (current) drug therapy
CPT/HCPCS: 12001; 73130; 99284

== ENCOUNTER 2021-10-09 10:57 | Emergency (ER) | payer BC, SELFPAY ==
[2021-10-09 10:58] VITALS: BP 118/77; PULSE 83; RESP 18; TEMP 36.7; O2SAT 98; BMI 24.8
--- NOTE | 2021-10-09 11:11 | EDS_ITS ---
HPI History of Present Illness HPI Narrative: Left hand laceration using a hand saw. Chief Complaint: Laceration Informant: patient Occured/Mechanism Mechanism/Context: Yes injury Onset/Context/Timing Onset: Today Context: Sudden Onset Timing: Continuous Current Severity: Mild Maximum Severity: Mild Associated Symptoms Associated Symptoms: Negative for Parasthesia, Weakness or Loss of Funtion Narrative Narrative: 56-year-old diabetic male states his sugars have been running well. Today was using a hand saw and accidentally cut the webspace between his left thumb and index finger. This occurred about half an hour ago. Believes his tetanus is less than 5 years old. Denies any other complaints. Tetanus Immunization: <5 years Prior similar symptoms: No Recent Illness/Hospitalization: No PFSH PFSH Medical History Cholecystectomy planned Coronary artery disease GERD (gastroesophageal reflux disease) Hyperlipidemia Home Medications multivitamin (Daily Multiple tablet) 1 ea PO DAILY 12/07/16 [History Last Taken Unknown] aspirin 81 mg chewable tablet 81 mg PO DAILY@0800 03/16/20 [History Last Taken Unknown] atorvastatin 20 mg tablet 20 mg PO DAILY 05/10/20 [History Last Taken Unknown] clopidogrel 75 mg tablet 75 mg PO DAILY 05/10/20 [History Last Taken Unknown] omeprazole 20 mg capsule,delayed release 20 mg PO DAILY 07/16/20 [History Last Taken Unknown] glimepiride 2 mg tablet (Amaryl) 2 mg PO DAILY #30 tabs 07/17/20 [Rx Last Taken Unknown] metformin 500 mg tablet 500 mg PO BID #60 tabs 07/17/20 [Rx Last Taken Unknown] cephalexin 500 mg capsule 500 mg PO Q6 #40 CAPSULES 05/10/21 [Rx Last Taken Unknown] Allergy/AdvReac Type Severity Reaction Status Date / Time simvastatin Allergy Other Verified 10/09/21 11:00 tramadol Allergy Rash Verified 10/09/21 11:00 varenicline Allergy Vomiting Verified 10/09/21 11:00 cilostazol AdvReac Abd Verified 10/09/21 11:00 cramps/diarrhea promethazine [From Phenergan] AdvReac Swelling Verified 05/10/21 16:15 Social History Smoking Status: Current every day smoker tobacco type: cigarettes ROS ROS ED ROS Narrative Denies recent illness. Review of Systems ROS Unobtainable: Denies due to encephalopathy Constitutional Constitutional ED: Denies chills or fever(s) Eyes Eyes: Denies blurry vision ENT ENT ED: Denies ear pain Cardiovascular Cardiovascular: Denies chest pain Respiratory/Chest Respiratory/Chest: Denies cough or dyspnea Gastrointestinal Gastrointestinal: Denies abdominal pain Genitourinary Genitourinary ED: Denies dysuria or hematuria Musculoskeletal Musculoskeletal: Denies back pain or myalgias Integumentary Denies abscess Neurologic Neurologic: Denies headache(s) Psychiatric Psychiatric: Denies anxiety Endocrine Endocrinology: Denies cold intolerance Hematologic/Lymphatic Hematologic/Lymphatic: Denies easy bleeding Allergic/Immunologic Allergic/Immunologic ED: Denies mouth swelling or tongue swelling EXAM Physical Exam Narrative Exam Narrative: 56-year-old male no acute distress. Vital signs stable afebrile. H EENT exam unremarkable. Lungs are clear. Heart regular rhythm. Abdomen soft nontender. Moving all 4 extremities. Neurovascular intact. Tween his left thumb and left index finger there is about a 2 cm laceration on the skin and subcu tissue which will need closed. Minimal oozing. No pulsatile bleeding. He has full range of motion all digits of his left hand. Normal sensation. No deformity. No infection. No foreign body noted. Const Vital Signs: 10/09/21 10:58 Temperature 98.1 F Temperature Source Temporal Pulse Rate 83 Respiratory Rate 18 Blood Pressure 118/77 Blood Pressure Mean 90 Pulse Ox 98 Oxygen Delivery Method Room Air Positive well nourished and well developed; Negative for obese, cachectic, contractures or unkempt General Appearance ED: well developed and NAD; Negative for unkempt, cachectic, contractures, cyanotic or diaphoretic Nutritional Appearance: Negative for cachectic or obese HEENT Reports moist mucous membranes normocephalic and atraumatic; Negative for trauma or tenderness Eyes PERRL and EOMs intact bilaterally General Eye ED: Negative for other Neck full ROM and supple General: Negative for tenderness Lymph Lymphatic: Negative for other Chest Wall inspection of chest normal and palpation of chest normal Resp normal respiratory effort and clear to auscultation bilaterally Effort and Inspection: Negative for pain with movement Auscultation: Negative for rales, rhonchi or wheezes Cardio regular rate, regular rhythm, S1 normal heart sound, S2 normal heart sound and no murmurs Rate: Negative for bradycardia Rhythm: Negative for abnormal rhythm GI non-tender, non-distended and no masses Inspection: Negative for abdominal distention Auscultation: normoactive bowel sounds Palpation: soft; Negative for tender or guarding Back/Spine no CVA tenderness General Back: Negative for CVA tenderness Cervical Spine: Negative for cervical spine tenderness Thoracic Spine / Upper Back: Negative for thoracic spinal tenderness Lumbar Spine / Lower Back: Negative for lumbar spinal tenderness or straight leg raise positive - left Extremity normal to inspection and full ROM General Extremety ED: Negative for edema General Extremity: Negative for edema Neuro oriented x3, CN's II-XII intact bilaterally, moves all extremities and no focal motor deficits Sensorium / Orientation: alert, oriented to person, oriented to place and oriented to time; Negative for orientation impaired, lethargic, stuporous or other Motor Exam: strength 5/5 throughout Psych mental status grossly normal Appearance: Negative for unkempt Attitude: No agitated Mood & Affect: Negative for depressed or anxious Skin General Skin Exam: Negative for petechiae Lesions: no lesions Rashes: no rashes Trauma: laceration; Negative for no lacerations or abrasions MDM MDM MDM Narrative Medical decision making narrative: Struck to [id number] diabetic male with a laceration to the webspace between his left thumb and index finger. He is right-hand dominant. Believes his tetanus is up-to-date. Area will be cleaned, explored and locally anesthetized and closed. Laceration closure went well. Wound care and follow-up as needed. Procedures Lacerations Left hand laceration: Length: 1.18 in Depth: Sub Q Shape: Linear Prep: Shmalia-Clens Laceration repair: Irrigated, Lidocaine, Local and Skin sutures Number of Sutures/[place]: 3 Suture Information: Ethilon, Simple and 5-0 Comment: Left hand laceration on the webspace between thumb and index finger about 2 cm in length. Cleaned using Jackie-[place]na. Washed with saline irrigated. Explored. Local anesthetized with lidocaine. Closed using 3 simple erupted 5-0 Ethilon sutures. Proper hemostasis and wound closure is obtained. Patient was instructed on wound care and suture removal in 10 to 14 days. Discharge Plan Triage Chief Complaint: Laceration ED Provider: Popeye Hurtado Dx/Rx/DC Orders Clinical Impression: Hand laceration Instructions: ED Laceration, Hand: All Closures Prescriptions: No Action multivitamin [Daily Multiple] 1 EACH tablet 1 ea PO DAILY aspirin 81 MG tablet,chewable 81 mg PO DAILY@0800 atorvastatin 20 MG tablet 20 mg PO DAILY clopidogrel 75 MG tablet 75 mg PO DAILY omeprazole 20 mg Capsule,Delayed Release(Dr/Ec) 20 mg PO DAILY glimepiride [Amaryl] 2 mg tablet 2 mg PO DAILY Qty: 30 0RF metformin 500 mg tablet 500 mg PO BID Qty: 60 0RF cephalexin [cephalexin] 500 MG capsule 500 mg PO Q6 Qty: 40 0RF Primary Care Provider: Mateo Brantley Referrals: Mateo Brantley MD [Primary Care Provider] - 10-14 Days suture removal Activity Restrictions/Additional Instructions: Keep hand dry and clean. You can clean it daily. Dry thoroughly. Apply antibiotic once to twice daily. Watch for any signs of infection such as pus, swelling, fever, red streaks is seen return. Apply antibiotic ointment daily. Stitches out in 10 to 14 days. Disposition Disposition: Home, Self Care
[2021-10-09] MEDS: Lidocaine 1% (20 ml mdv) 20 ML Vial 10 ML INFILT (12:16)
== END 2021-10-09 12:18 | disposition home or self-care (01) ==
PROVIDERS: Emergency Provider Emergency Medicine; PCP Family Medicine; Visit Provider Emergency Medicine
DX: S61.412A Laceration without foreign body of left hand, initial encounter (principal); E11.9 Type 2 diabetes mellitus without complications; I25.10 Atherosclerotic heart disease of native coronary artery without angina pectoris; F17.210 Nicotine dependence, cigarettes, uncomplicated; E78.5 Hyperlipidemia, unspecified; W27.0XXA Contact with workbench tool, initial encounter; Z79.84 Long term (current) use of oral hypoglycemic drugs; Z79.82 Long term (current) use of aspirin; Z79.899 Other long term (current) drug therapy
CPT/HCPCS: 12001; 99284

== ENCOUNTER → 2022-04-05 | Outpatient (CLI) | payer BC, SELFPAY ==
[2022-04-05 13:17] LABS: Lipase 101 U/L (73-393)
== END | disposition home or self-care (01) ==
LOC: LABSPEC 12:55
PROVIDERS: PCP Family Medicine; Visit Provider Physician Assistant
DX: R11.2 Nausea with vomiting, unspecified (principal)
CPT/HCPCS: 83690

== ENCOUNTER 2023-02-12 12:43 | Emergency (ER) | payer OTHER, SELFPAY ==
[2023-02-12 12:44] VITALS: BP 142/87; PULSE 78; RESP 14; TEMP 36.5; O2SAT 100; BMI 26.2
--- NOTE | 2023-02-12 13:42 | EDS_ITS ---
HPI History of Present Illness Chief Complaint: Back Informant: patient Narrative Narrative: Patient presents with lower back pain and some radiation to the left leg. Patient pulled some carpet out of her room about 2 weeks ago. He started to get pain afterwards. He was seen in urgent care. He was placed on prednisone for about 4 to 5 days. It looks like it was 40 mg a day. He was getting better with this. But when the med stopped a few days ago the pain started coming back. He has had the pain down his left leg off and on for this whole time. No bowel or bladder dysfunction. No constipation. No history of back surgery. No impact or fall type trauma. No weakness. No fevers or chills. No history of cancers. [facility] Medical History Cholecystectomy planned Coronary artery disease GERD (gastroesophageal reflux disease) Hyperlipidemia Home Medications multivitamin (Daily Multiple tablet) 1 ea PO DAILY 12/07/16 [History Last Taken Unknown] aspirin 81 mg chewable tablet 81 mg PO DAILY@0800 03/16/20 [History Last Taken Unknown] atorvastatin 20 mg tablet 20 mg PO DAILY 05/10/20 [History Last Taken Unknown] clopidogrel 75 mg tablet 75 mg PO DAILY 05/10/20 [History Last Taken Unknown] omeprazole 20 mg capsule,delayed release 20 mg PO DAILY 07/16/20 [History Last Taken Unknown] glimepiride 2 mg tablet (Amaryl) 2 mg PO DAILY #30 tabs 07/17/20 [Rx Last Taken Unknown] metformin 500 mg tablet 500 mg PO BID #60 tabs 07/17/20 [Rx Last Taken Unknown] cephalexin 500 mg capsule 500 mg PO Q6 #40 CAPSULES 05/10/21 [Rx Last Taken Unknown] oxycodone-acetaminophen 5 mg-325 mg tablet 1 tab PO Q6H PRN PRN Pain 3 days #12 TABLETS 02/12/23 [Rx Last Taken Unknown] prednisone 20 mg tablet 60 mg (3 x 20 mg) PO DAILY #15 TABLETS 02/12/23 [Rx Last Taken Unknown] Allergy/AdvReac Type Severity Reaction Status Date / Time simvastatin Allergy Other Verified 02/12/23 12:45 tramadol Allergy Rash Verified 02/12/23 12:45 varenicline Allergy Vomiting Verified 02/12/23 12:45 cilostazol AdvReac Abd Verified 02/12/23 12:45 cramps/diarrhea promethazine [From Phenergan] AdvReac Swelling Verified 02/12/23 12:45 Social History Smoking Status: Current every day smoker tobacco type: cigarettes ROS ROS ED ROS Narrative A complete review of systems was performed and is negative except as documented in the history of present illness. Some specific details below. Constitutional: No recent fevers or chills. No rigors. Patient has not generally felt ill. ENT: No sinus pressure or pain. No dental pain or swelling CV: No chest pain, pressure or aching. No palpitations or irregular beats. Patient has not been presyncopal or syncopal. Respiratory: No trouble breathing. No cough. No wheezing. No sputum production. No pain with breathing. GI: No abdominal pain. No nausea vomiting diarrhea. No blood in stool. No loss of bowel control. No history of AAA. Although he has no problem moving his bowels, he states when he twists around to wipe himself it causes discomfort because of the twisting. He has not noted any numbness. : No frequency dysuria or hematuria. No incontinence or urinary retention. Musculoskeletal: No recent impact trauma. The soreness did start after pulling out carpet though. No swelling. Please see history of present illness. Skin: No rash. No diaphoresis. No vesicles. Neuro: No weakness or numbness. He does have pain radiating around on the left side to the side and slight anterior aspect of the hip and a little bit down the lateral thigh. He describes it is just above the left knee. But he has not had weakness. Endocrine: No polyuria or polydipsia. EXAM Physical Exam Narrative Exam Narrative: CONSTITUTIONAL: Patient is nontoxic in appearance. But the patient does look a little uncomfortable. He prefers to lay on his right side. HEENT: No notable trauma. Mucous membranes moist. No sign of dental infection. EYES: No conjunctival injection. No pallor. NECK: No meningismus. No JVD. CARDIOVASCULAR: Regular rate. Regular rhythm. No notable murmur. No JVD. RESPIRATORY: No respiratory distress. Breathing is unlabored. No wheezes. No rhonchi. No rales. No pain with a deep breath. GASTROINTESTINAL: Not distended. Bowel sounds are normal. No tenderness. No guarding. No rebound. No palpable mass. No bruit. GENITOURINARY: No tenderness over the bladder. No CVA tenderness. MUSCULOSKELETAL: Atraumatic. No peripheral edema. No cord. No tenderness along the deep venous system. No asymmetry. Distal pulses are intact. NEUROLOGICAL: Patient is alert and oriented. No focal deficit noted. Sensation seems intact. Patient has grossly normal quad strength gait dorsal and plantar flexion Patellar reflex 1?2+ bilaterally Achilles reflex 1+ bilaterally SKIN: No noted rashes. No diaphoresis. No vesicles noted. No notable pallor. PSYCHIATRIC: Patient is calm. Mood is appropriate. Const Vital Signs: 02/12/23 12:44 Temperature 97.7 F L Temperature Source Temporal Pulse Rate 78 Respiratory Rate 14 Blood Pressure 142/87 H Blood Pressure Mean 105 Pulse Ox 100 Oxygen Delivery Method Room Air MDM MDM MDM Narrative Medical decision making narrative: We discussed options with the patient. I am concerned with the radicular pain. But he is not developing any neurologic deficits. His sensation and strength is intact. No saddle anesthesia. No fevers chills history of cancers or significant trauma. I did review his x-rays that were done last week when the patient's brought them up on [facility]. It showed some DJD but no acute process. I explained to the patient that his symptoms are consistent with a disc. We need to improve this with either medical therapy, physical therapy and time. If it is not improving he may end up having surgery for this. But he needs to exhaust conservative therapy first. Since he was getting better at 40 mg of prednisone I will put him on a slightly higher dose for 5 days. I will write for some pain meds. I did do online prescribing report review and his last narcotics for almost 2 years ago. If he develops weakness, numbness, saddle anesthesia trouble urinating or moving bowels he needs to return. He should follow-up with his physician. He may want to contact spine surgery to start the process of seeing them. Discharge Plan Triage Chief Complaint: Back ED Provider: Wero Messer Dx/Rx/DC Orders Clinical Impression: Lumbar back pain, Left lumbar radiculopathy Instructions: ED Sciatica Prescriptions: New prednisone 20 mg tablet 60 mg PO DAILY Qty: 15 0RF oxycodone-acetaminophen [oxycodone-acetaminophen] 5-325 mg tablet 1 tab PO Q6H PRN PRN (Reason: Pain) 3 Days Qty: 12 0RF No Action multivitamin [Daily Multiple] 1 EACH tablet 1 ea PO DAILY aspirin 81 MG tablet,chewable 81 mg PO DAILY@0800 atorvastatin 20 MG tablet 20 mg PO DAILY clopidogrel 75 MG tablet 75 mg PO DAILY omeprazole 20 mg Capsule,Delayed Release(Dr/Ec) 20 mg PO DAILY glimepiride [Amaryl] 2 mg tablet 2 mg PO DAILY Qty: 30 0RF metformin 500 mg tablet 500 mg PO BID Qty: 60 0RF cephalexin [cephalexin] 500 MG capsule 500 mg PO Q6 Qty: 40 0RF Primary Care Provider: Mateo Brantley Referrals: Mateo Brantley MD [Primary Care Provider] - 3-5 Days Mateo Martinez DO [Med Staff - Active Staff] - As soon as possible (Contact in the morning for follow-up appointment.) Activity Restrictions/Additional Instructions: If you get a rash with oxycodone, you can take Benadryl. Disposition Disposition: Home, Self Care
--- OUTSIDE RECORDS SUMMARY | 2023-02-12 13:53 | XMS RPT_ITS | CCD ---
Author Name Unknown Address [address] [place] [address] Organization [facility] Care Team Providers Care Bulk Delivery Driver Name Role Phone Mateo Denise MD [facility]UL[facility] HERNANDEZ Referring Unavailable MATEO DENISE Primary Care Unavailable JULISA HERNANDEZ Attending Unavailable MATEO DENISE Primary Care Unavailable MATEO DENISE Primary Care Unavailable MATEO DENISE Primary Care Unavailable DAVID YU Attending Unavailable DAVID YU Referring Unavailable JULISA HERNANDEZ Referring Unavailable CAMELIA, MATEO A Primary Care Unavailable JULISA HERNANDEZ Referring Unavailable CAMELIA, MATEO A Primary Care Unavailable JULISA HERNANDEZ Attending Unavailable MATEO DENISE Primary Care Unavailable KISHA KRISHNAMURTHY Referring Unavailable CAMELIA, MATEO A Primary Care Unavailable CAMELIA, MATEO A Primary Care Unavailable MATEO DENISE A Primary Care Unavailable MATEO DENISE Referring Unavailable CAMELIA, MATEO A Primary Care Unavailable MATEO DENISE Referring Unavailable EMILY KAY Attending Unavailable CAMELIA, MATEO A Primary Care Unavailable KISHA KRISHNAMURTHY Referring Unavailable CAMELIA, MATEO A Primary Care Unavailable Allergies Allergy Classification Reported Allergen(s) Allergy Type Date of Onset Reaction(s) Facility (20 sources) cilostazol; Translations: [CILOSTAZOL] Drug Allergy 11-04-2020 GI Upset [facility] Work Phone: (20 sources) Promethazine; Translations: [PROMETHAZINE HCL] Drug Allergy 08-06-2009 [facility] Work Phone: (20 sources) Simvastatin; Translations: [SIMVASTATIN] Drug Allergy 01-24-2011 Other: See Comments [facility] Work Phone: (20 sources) traMADol; Translations: [TRAMADOL] Drug Allergy 05-24-2012 Rash, GI Upset [facility] Work Phone: (20 sources) varenicline; Translations: [VARENICLINE] Drug Allergy 09-20-2017 Vomiting [facility] Work Phone: Medications Current Medications Medication Drug Class(es) Dates Sig (Normalized) Sig (Original) bismuth subsalicylate 262 mg chewable tablet (2 sources) Bismuth Start: 11-02-2021 End: 03-16-2022 take 1 tablet by mouth four times daily bismuth subsalicylate (PEPTO-BISMOL) 262 mg chew Take 1 tablet by mouth four times daily for 14 days. 56 tablet 0 11/02/2021 03/16/2022 Discontinued Completed/Discontinued Medications Medication Drug Class(es) Dates Sig (Normalized) Sig (Original) acetaminophen 325 mg oral tablet (19 sources) Start: 04-03-2021 take 2 tablets by mouth every four hours as needed acetaminophen (TYLENOL) 325 mg tablet Take 2 tablets by mouth every 4 hours as needed for pain. 30 tablet 0 04/03/2021 Active Problems Active Problems Problem Classification Problem Date Documented Da te Episodic/Chronic Acquired foot deformities (1 source) Tailor's bunion; Translations: [Bunionette of unspecified foot] Episodic Diabetes mellitus with complications (2 sources) Type 2 diabetes mellitus with peripheral angiopathy; Translations: [Type 2 diabetes mellitus with diabetic peripheral angiopathy without gangrene] Chronic Diabetes mellitus without complication (20 sources) Type 2 diabetes mellitus without complication; Translations: [Type 2 diabetes mellitus without complications] Onset: 1 07-16-2020 Chronic Diseases of white blood cells (1 source) Leukocytosis; Translations: [Elevated white blood cell count, unspecified] Chronic Disorders of lipid metabolism (20 sources) Mixed hyperlipidemia; Translations: [Mixed hyperlipidemia] Onset: 8 10-11-2017 Chronic Esophageal disorders (20 sources) Gastroesophageal reflux disease; Translations: [Gastro-esophageal reflux disease without esophagitis] Onset: 3 10-11-2017 Chronic Gastritis and duodenitis (1 source) Unspecified chronic gastritis without bleeding; Translations: [Atrophic gastritis, without mention of hemorrhage] Chronic Headache; including migraine (20 sources) Migraine; Translations: [Migraine, unspecified, not intractable, without status migrainosus] 09-15-2020 Chronic Mycoses (1 source) Onychomycosis; Translations: [Tinea unguium] Episodic Other and unspecified benign neoplasm (1 source) Tubular adenoma ; Translations: [Benign neoplasm, unspecified site] Episodic Other connective tissue disease (1 source) Pain of toe of left foot; Translations: [Pain in left toe(s)] Episodic Other connective tissue disease (1 source) Pain of toe of right foot; Translations: [Pain in right toe(s)] Episodic Other connective tissue disease (1 source) Pain in finger of left hand; Translations: [Pain in left finger(s)] 01-12-2023 Episodic Other connective tissue disease (1 source) Pain in left finger(s); Translations: [Pain of finger of left hand] Onset: 3 Episodic Other gastrointestinal disorders (1 source) Dysphagia; Translations: [Dysphagia, unspecified] Episodic Other upper respiratory infections (1 source) Sore throat symptom; Translations: [Acute pharyngitis, unspecified] Episodic Peripheral and visceral atherosclerosis (20 sources) Intermittent claudication; Translations: [Peripheral vascular disease, unspecified] Onset: 8 10-11-2017 Chronic Residual codes; unclassified (2 sources) Family history of cancer of colon; Translations: [Family history of malignant neoplasm of digestive organs] Episodic Residual codes; unclassified (1 source) Generalized aches and pains; Translations: [Pain, unspecified] Episodic Spondylosis; intervertebral disc disorders; other back problems (1 source) Radiculopathy, lumbar region; Translations: [Lumbar radiculopathy] Onset: 3 Episodic Substance-related disorders (20 sources) Smoker; Translations: [Nicotine dependence, unspecified, uncomplicated] Onset: 8 10-11-2017 Chronic Viral infection (1 source) Herpes zoster without complication; Translations: [Zoster without complications] 01-12-2023 Episodic Past or Other Problems Problem Classification Problem Date Documented Da te Episodic/Chronic Abdominal pain (20 sources) Right inguinal pain; Translations: [Right lower quadrant pain] Onset: 12-12-2017 12-12-2017 Episodic Nausea and vomiting (3 sources) Nausea and vomiting; Translations: [Nausea with vomiting, unspecified] Onset: 04-06-2022 Episodic Other aftercare (20 sources) Patient encounter status; Translations: [Other terminal block assembler (current) drug therapy] Onset: 10-11-2017 03-16-2021 Episodic Other aftercare (1 source) Other care home (current) drug therapy; Translations: [Medication management] Onset: 03-16-2021 Episodic Other infections; including parasitic (12 sources) History of Helicobacter pylori infection; Translations: [Personal history of other infectious and parasitic diseases] Onset: 11-03-2021 Episodic Other screening for suspected conditions (not mental disorders or infectious disease) (1 source) Encounter for screening for malignant neoplasm of prostate; Translations: [Screening for prostate cancer] Onset: 10-11-2017 Episodic Other skin disorders (19 sources) Sebaceous cyst of skin; Translations: [Sebaceous cyst] Onset: 02-14-2011 10-11-2017 Episodic Residual codes; unclassified (1 source) Pain, unspecified; Translations: [Body aches] Onset: 04-06-2022 Episodic Results Test Name Value Interpretation Reference Range Facil ity Vital Signs Date Time Vital Sign Value Performing Clinician Yakov mike 01-12-2023 11:01-0500 Body temperature 97.9 [degF] Julisa David DEPUTY DIRECTOR OF PUBLIC WORKS.RUBBER PRESS OPERATOR Work Phone: [facility] 01-12-2023 11:01-0500 Body weight 83.1 kg Julisa Hernandez DEPUTY DIRECTOR OF PUBLIC WORKS.RUBBER PRESS OPERATOR Work Phone: [facility] 01-12-2023 11:01-0500 Diastolic blood pressure 58 mm[Hg] Julisa Hernandez DEPUTY DIRECTOR OF PUBLIC WORKS.RUBBER PRESS OPERATOR Work Phone: [facility] 01-12-2023 11:01-0500 Heart rate 90 /min Julisa David DEPUTY DIRECTOR OF PUBLIC WORKS.RUBBER PRESS OPERATOR Work Phone: [facility] 01-12-2023 11:01-0500 Respiratory rate 14 /min Julisa Hernandez DEPUTY DIRECTOR OF PUBLIC WORKS.RUBBER PRESS OPERATOR Work Phone: [facility] 01-12-2023 11:01-0500 SaO2% (BldA) [Mass fraction] 94 % Julisa Hernandez DEPUTY DIRECTOR OF PUBLIC WORKS.RUBBER PRESS OPERATOR Work Phone: [facility] 01-12-2023 11:01-0500 Systolic blood pressure 120 mm[Hg] Julisa Hernandez DEPUTY DIRECTOR OF PUBLIC WORKS.RUBBER PRESS OPERATOR Work Phone: [facility] 04-06-2022 10:55-0500 Body temperature 98.01 [degF] Julisa Hernandez DEPUTY DIRECTOR OF PUBLIC WORKS.RUBBER PRESS OPERATOR Work Phone: [facility] 04-06-2022 10:55-0500 Body weight 81.01 kg Julisa Hernandez DEPUTY DIRECTOR OF PUBLIC WORKS.RUBBER PRESS OPERATOR Work Phone: [facility] 04-06-2022 10:55-0500 Diastolic blood pressure 60 mm[Hg] Julisa Hernandez DEPUTY DIRECTOR OF PUBLIC WORKS.RUBBER PRESS OPERATOR Work Phone: [facility] 04-06-2022 10:55-0500 Heart rate 93 /min Julisa Hernandez DEPUTY DIRECTOR OF PUBLIC WORKS.RUBBER PRESS OPERATOR Work Phone: [facility] 04-06-2022 10:55-0500 Respiratory rate 16 /min Julisa Hernandez DEPUTY DIRECTOR OF PUBLIC WORKS.RUBBER PRESS OPERATOR Work Phone: [facility] 04-06-2022 10:55-0500 SaO2% (BldA) [Mass fraction] 98 % Julisa Hernandez DEPUTY DIRECTOR OF PUBLIC WORKS.RUBBER PRESS OPERATOR Work Phone: [facility] 04-06-2022 10:55-0500 Systolic blood pressure 110 mm[Hg] Julisa Hernandez DEPUTY DIRECTOR OF PUBLIC WORKS.RUBBER PRESS OPERATOR Work Phone: [facility] 04-05-2022 11:42-0500 Body temperature 97.9 [degF] Kisha Krishnamurthy PA-C Work Phone: [facility] 04-05-2022 11:42-0500 Body weight 81.74 kg Kisha Krishnamurthy PA-C Work Phone: [facility] 04-05-2022 11:42-0500 Diastolic blood pressure 82 mm[Hg] Kisha Athy PA-C Work Phone: [facility] 04-05-2022 11:42-0500 Heart rate 87 /min Kisha Athy PA-C Work Phone: [facility] 04-05-2022 11:42-0500 Respiratory rate 18 /min Kisha Athy PA-C Work Phone: [facility] 04-05-2022 11:42-0500 SaO2% (BldA) [Mass fraction] 96 % Kisha Athy PA-C Work Phone: [facility] 04-05-2022 11:42-0500 Systolic blood pressure 118 mm[Hg] Kisha Athy PA-C Work Phone: [facility] 03-16-2022 06:56-0500 Body height 181 cm Emily Kay PA-C Work Phone: [facility] 03-16-2022 06:56-0500 Body weight 80.02 kg Emily Kay PA-C Work Phone: [facility] 03-16-2022 06:56-0500 Diastolic blood pressure 78 mm[Hg] Emily Kay PA-C Work Phone: [facility] 03-16-2022 06:56-0500 Heart rate 83 /min Emily Kay PA-C Work Phone: [facility] 03-16-2022 06:56-0500 Respiratory rate 16 /min Emily Kay PA-C Work Phone: [facility] 03-16-2022 06:56-0500 SaO2% (BldA) [Mass fraction] 94 % Emily Kay PA-C Work Phone: [facility] 03-16-2022 06:56-0500 Systolic blood pressure 132 mm[Hg] Emily Kay PA-C Work Phone: [facility] 11-02-2021 08:51-0400 Body temperature 97.59 [degF] Soraya [place] PA-C Work Phone: [facility] 11-02-2021 08:51-0400 Diastolic blood pressure 78 mm[Hg] Soraya Minnie PA-C Work Phone: [facility] 11-02-2021 08:51-0400 Heart rate 76 /min Soraya [place] PA-C Work Phone: [facility] 11-02-2021 08:51-0400 SaO2% (BldA) [Mass fraction] 96 % Soraya [place] PA-C Work Phone: [facility] 11-02-2021 08:51-0400 Systolic blood pressure 122 mm[Hg] Soraya Minnie PA-C Work Phone: [facility] 10-20-2021 09:20-0400 Diastolic blood pressure 67 mm[Hg] Heber Eubanks MD Work Phone: [facility] 10-20-2021 09:20-0400 Heart rate 71 /min Heber Eubanks MD Work Phone: [facility] 10-20-2021 09:20-0400 Respiratory rate 16 /min Heber Eubanks MD Work Phone: [facility] 10-20-2021 09:20-0400 SaO2% (BldA) [Mass fraction] 93 % Heber Eubanks MD Work Phone: [facility] 10-20-2021 09:20-0400 Systolic blood pressure 108 mm[Hg] Heber Eubansk MD Work Phone: [facility] 10-20-2021 07:34-0400 Body temperature 97 [degF] Heber Eubanks MD Work Phone: [facility] 10-04-2021 09:25-0400 Body height 180.3 cm Soraya Minnie PA-C Work Phone: [facility] 10-04-2021 09:25-0400 Body temperature 96.91 [degF] Soraya Minnie PA-C Work Phone: [facility] 10-04-2021 09:25-0400 Body weight 82.56 kg Soraya Minnie PA-C Work Phone: [facility] 10-04-2021 09:25-0400 Diastolic blood pressure 82 mm[Hg] Soraya Minnie PA-C Work Phone: [facility] 10-04-2021 09:25-0400 Heart rate 82 /min Soraya Minnie PA-C Work Phone: [facility] 10-04-2021 09:25-0400 SaO2% (BldA) [Mass fraction] 99 % Soraya [place] PA-C Work Phone: [facility] 10-04-2021 09:25-0400 Systolic blood pressure 138 mm[Hg] Soraya Minnie PA-C Work Phone: [facility] 10-03-2021 09:35-0400 Body weight 82.56 kg Mateo Denise MD Work Phone: [facility] 10-03-2021 09:35-0400 Diastolic blood pressure 80 mm[Hg] Mateo Denise MD Work Phone: [facility] 10-03-2021 09:35-0400 Heart rate 72 /min Mateo Denise MD Work Phone: [facility] 10-03-2021 09:35-0400 Respiratory rate 14 /min Mateo Denise MD Work Phone: [facility] 10-03-2021 09:35-0400 Systolic blood pressure 118 mm[Hg] Mateo Denise MD Work Phone: [facility] 07-15-2021 10:41-0400 Body weight 77.56 kg Nneka Tony DEPUTY DIRECTOR OF PUBLIC WORKS.RUBBER PRESS OPERATOR Work Phone: [facility] 07-15-2021 10:41-0400 Diastolic blood pressure 86 mm[Hg] Nneka Tony DEPUTY DIRECTOR OF PUBLIC WORKS.RUBBER PRESS OPERATOR Work Phone: [facility] 07-15-2021 10:41-0400 Heart rate 70 /min Nneka Tony DEPUTY DIRECTOR OF PUBLIC WORKS.RUBBER PRESS OPERATOR Work Phone: [facility] 07-15-2021 10:41-0400 Systolic blood pressure 145 mm[Hg] Nneka Matthewsper DEPUTY DIRECTOR OF PUBLIC WORKS.RUBBER PRESS OPERATOR Work Phone: [facility] 05-16-2021 14:26-0400 Diastolic blood pressure 82 mm[Hg] Nena Perez MD Work Phone: [facility] 05-16-2021 14:26-0400 Heart rate 88 /min Nena Perez MD Work Phone: [facility] 05-16-2021 14:26-0400 Systolic blood pressure 144 mm[Hg] Nena Perez MD Work Phone: [facility] Encounters Encounter Date Encounter Type Care Provider Facility Start: 02-06-2023 End: 02-06-2023 ambulatory MATEO DENISE Facility:[facility] Start: 01-12-2023 End: 01-12-2023 ambulatory JULISA HERNANDEZ Facility:[facility] Start: 01-12-2023 End: 01-12-2023 Patient encounter procedure Julisa Hernandez DEPUTY DIRECTOR OF PUBLIC WORKS.RUBBER PRESS OPERATOR Work Phone: [facility] Procedures Date Procedure Procedure Detail Performing Clinician Start: 10-20-2021 Esophagogastroduodenoscopy transoral diagnostic Soraya Hartman PA-C Work Phone: Start: 10-20-2021 Colonoscopy flx dx w/collj spec when pfrmd Soraya Hartman PA-C Work Phone: Start: 10-20-2021 Colonoscopy Heber Eubanks MD Work Phone: Start: 10-03-2021 Adult depression screening assessment Mateo Denise MD Work Phone: Start: 03-31-2021 Antibody screen Plan of Treatment Date Care Activity Detail Author Start: 09-21-2028 PNEUMOCOCCAL (3 - PP SV23 if available, else PCV20) PNEUMOCOCCAL (3 - PPSV23 if available, else PCV20) [facility] Start: 09-21-2028 PNEUMOCOCCAL (3 - PP SV23 or PCV20) PNEUMOCOCCAL (3 - PPSV23 or PCV20) [facility] Start: 09-21-2028 Pneumococcal vaccination Pneum ococcal Vaccine (3 - PPSV23 or PCV20) [facility] Start: 10-12-2027 Urine microalbumin profile [facility] Start: 03-16-2027 PROSTATE CANCER SCRE ENING DISCUSSION PROSTATE CANCER SCREENING DISCUSSION [facility] Start: 10-20-2026 Colonoscopy COLONOSCOPY [facility] Start: 10-20-2026 COLORECTAL CANCER SCREENING COLORECTAL CANCER SCREENING [facility] Start: 03-23-2026 PROSTATE CANCER SCRE ENING DISCUSSION PROSTATE CANCER SCREENING DISCUSSION [facility] Start: 01-13-2024 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 Visit Annual PCP Team Chronic Disease Visit [facility] Start: 01-13-2024 Covid-19 Vaccine () Covid-19 Vaccine () [facility] Immunizations Immunization Date Immunization Notes Care Provider Fa karlenety 03-16-2021 pneumococcal conjuga te vaccine, 13 valent Nena Perez MD Work Phone: [facility] 02-17-2021 zoster vaccine recombinant Nena Perez MD Work Phone: [facility] Work Phone: 12-27-2020 influenza, seasonal, injectable Nena Perez MD Work Phone: [facility] Work Phone: 12-27-2020 influenza virus vacc ine, unspecified formulation Julisa Hernandez DEPUTY DIRECTOR OF PUBLIC WORKS.RUBBER PRESS OPERATOR Work Phone: [facility] 05-14-2020 COVID-19 vaccine, ag e 12+ yr ([email or web address] - [facility]) Nena Perez MD Work Phone: [facility] Work Phone: 12-12-2017 influenza, injectabl e, quadrivalent, preservative free Nena Perez MD Work Phone: [facility] 10-11-2017 tetanus toxoid, redu aure diphtheria toxoid, and acellular pertussis vaccine, adsorbed Nena Perez MD Work Phone: [facility] 10-09-2013 pneumococcal polysaccharide vaccine, 23 valent Nena Perez MD Work Phone: [facility] 06-12-2006 tetanus toxoid, redu aure diphtheria toxoid, and acellular pertussis vaccine, adsorbed Nena Perez MD Work Phone: [facility] Work Phone: Payers Date Payer Category Payer Private Health Insurance [employer] A ETNA POS [id number] 2022-Present [phone] [address] [place] [address] POS [id number] 2022 Private Health Insurance [id number] 2020 Unknown [employer] PPO [id number] 2020-Present [phone] [address] [place] [address] PPO [id number] 2020 Unknown [employer]UE [employer] SS PPO [id number] 2020-Present [phone] [address] [place] [address] PPO [id number] 2020 Unknown [id number] Social History Date Type Detail Facility Start: 10-03-2021 End: 03-16-2022 Tobacco smoking status VTIS Smokes tobacco daily [facility] History of tobacco use Cigarette Smoker C [facility] Start: 05-05-2021 End: 01-12-2023 Alcohol intake Current non-drinker of alcohol (finding) [facility] Start: 03-16-2020 End: 10-03-2021 History SDOH Alcohol Frequency 1 [facility] Start: 03-16-2020 End: 10-03-2021 History SDOH Social Connections Phone 5 [facility] Start: 03-16-2020 End: 10-03-2021 History SDOH Social Connections Mormonism 98 [facility] Start: 03-16-2020 End: 10-03-2021 History SDOH Social Connections Membership 2 [facility] Start: 03-16-2020 End: 10-03-2021 History SDOH Social Connections Living 3 [facility] Start: 03-16-2020 End: 10-03-2021 History SDOH Physical Activity DPW 7 [facility] Start: 03-16-2020 End: 10-03-2021 Education 12 [facility] Start: 1965 Sex Assigned At Male C [facility] Start: 04-25-2021 End: 11-02-2021 Exposure to SARS-CoV-2 (event) Not sure [facility] Work Phone: Start: 10-03-2021 End: 03-01-2022 Cigarettes smoked current (pack per day) - Reported 0.5 [facility] Start: 10-03-2021 End: 03-16-2022 Tobacco use and exposure Smokeless tobacco non-user [facility] Start: 10-03-2021 History SDOH Alcohol Std Drinks 0 [facility] Start: 10-20-2021 Tobacco Comment 3 cigs per day [facility] Start: 10-02-2021 End: 03-01-2022 Social connection and isolation panel [facility] How often do you att end adventist or restoration services? Patient refused [facility] Are you now , , , , never or living with a partner? [facility] How often to you hav e a drink containing alcohol? Never [facility] Do you feel stress - tense, restless, nervous, or anxious, or unable to sleep at night because your mind is troubled all the time - these days [OSQ] Only a little [facility] (I/We) worried wheth er (my/our) food would run out before (I/we) got money to buy more. Never true [facility] In the past 12 month s, was there a time when you were not able to pay the mortgage or rent on time? No [facility] Start: 03-01-2020 Gender identity Identifies as male gender (finding) [facility] Start: 03-01-2020 Sexual orientation Heterosexual (eliezer owen) [facility] Medical Equipment Procedure Code Equipment Code Equipment Origin al Text Equipment Identifier Dates Start: 07-19-2020 Clinical Notes 04-14-2020 to 02-06-2023 Julisa Hernandez APRN.RUBBER PRESS OPERATOR - 01/12/2023 10:51 AM ESTPatient InstructionsMattkelly Shirleyke - 06/06/2022 8:43 AM Shailesh Barrera RN - 06/06/2022 8:38 AM Alondra Cruz MA - 04/05/2022 7:31 PM EST Note Date & Type Note Facility 02-06-2023 Note HNO ID: [id number] Author: Ksiha Krishnamurthy PA-C Service: ? Author Type: Physician Neuroscience Specialist Type: Progress Notes Filed: 02/06/2023 9:59 AM Note Text: This note was created using Widemileriter. Subjective Martinez Barton is a 57 year old male. HPI Presents with a chief complaint of left lower back pain radiating into his left leg over the past 2 days. States he just woke up with the pain. 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 He denies any numbness or tingling. Denies having pain into his leg previously. He has seen a chiropractor off-and-on but denies chronic back problems. No abdominal pain. Denies urinary complaints. No loss of bowel or bladder control. Pain is worsening with standing and bending. He did try ibuprofen and heating pad which did not seem to help much. Review of Systems Constitutional: Negative. HENT: Negative. Respiratory: Negative. Cardiovascular: Negative. Gastrointestinal: Negative. Musculoskeletal: Positive for back pain. All other systems reviewed and are negative. PAST MEDICAL HISTORY Diagnosis Date Claudication ([facility]) 05/31/2017 GERD (gastroesophageal reflux disease) 04/24/2012 History of Helicobacter pylori infection 11/03/202110/2021 Migraines hasn't had since pinch nerve addressed in neck Mixed hyperlipidemia 10/11/2017 PAD (peripheral artery disease) ([facility]) 06/14/2017 PAD (peripheral artery disease) ([facility]) 06/14/2017 Seeing [facility] S/P bilateral stents and Lt common femoral to above the knee bypass 03/2021. Sebaceous cyst 02/14/2011 Smoker 05/31/2017 Started age 8 up 2 PPD, as of 09/2017 down to 2 cigs a day Type 2 diabetes mellitus without complication, without long-term current use of insulin ([facility]) 03/24/2020 Current Outpatient Medications Medication Sig Dispense Refill gabapentin (NEURONTIN) 100 mg capsule Take 2 capsules by mouth three times a day for 90 days. 180 capsule 2 metFORMIN ER (GLUCOPHAGE XR) 500 mg 24 hr tablet Take 1 tablet by mouth two times a day with meals. 60 tablet 0 clopidogrel (PLAVIX) 75 mg tablet Take 1 tablet by mouth once daily. 90 tablet 0 atorvastatin (LIPITOR) 20 mg tablet Take 1 tablet by mouth daily at bedtime. For cholesterol. 90 tablet 1 ondansetron orally disintegrating (ZOFRAN ODT) 4 mg disintegrating tablet Take 1 tablet by mouth every 8 hours as needed. 12 tablet 0 acetaminophen (TYLENOL) 325 mg tablet Take 2 tablets by mouth every 4 hours as needed for pain. 30 tablet 0 blood sugar diagnostic (BLOOD GLUCOSE TEST) test strip Test blood sugar(s) 2 times daily. Dx: Type 2 DM - unControlled E11.9 Insulin: Yes 100 Strip 11 insulin needles, DISPOSABLE, (PEN NEEDLE) 31 gauge x 5/16 Use one needle per dose. 4 per day. 150 Each 2 OMEPRAZOLE ORAL Take 20 mg by mouth once daily. aspirin, enteric coated (ADULT LOW DOSE ASPIRIN) 81 mg EC tablet Take 1 tablet by mouth once daily. predniSONE (DELTASONE) 20 mg tablet Take 2 tablets by mouth once daily for 5 days. 10 tablet 0 cyclobenzaprine (FLEXERIL) 10 mg tablet Take 1 tablet by mouth three times a day as needed for muscle spasm. 15 tablet 0 No current facility-administered medications for this visit. PAST SURGICAL HISTORY Procedure Laterality Date ABDOMINAL SURGERY HX COLONOSCOPY 10/20/2021 tubular adenoma, repeat in 5 years COLONOSCOPY FLX DX W/COLLJ SPEC WHEN PFRMD 09/12/2010 Diverticulosis. [facility] inpt COLONOSCOPY FLX DX W/COLLJ SPEC WHEN PFRMD 05/01/2016 Colonoscopy, repeat 5 yrs EGD 10/20/2021 short-segment Hernandez's, per Dr. Eubanks repeat in 5 years ESOPHAGOGASTRODUODENOSCOPY TRANSORAL DIAGNOSTIC 09/12/2010 [facility] inpt/ H-pylori negative. Small hiatal hernia ESOPHAGOGASTRODUODENOSCOPY TRANSORAL DIAGNOSTIC 05/01/2016 EGD LAPAROSCOPIC CHOLECYSTECTOMY 04/14/2020 PAST SURGICAL HISTORY OF Bilateral 2018 LE stenting PAST SURGICAL HISTORY OF 04/01/2021 Left common femoral to above the knee bypass VASCULAR SURGERY PROCEDURE FAMILY HISTORY Problem Relation Age of Onset Asthma Father Cancer Father lung Emphysema Father COPD Father Hypertension Father Breast Cancer Mother Hypertension Mother Breast Cancer Maternal Grandmother Cancer Brother colon, age 42 Social History Tobacco Use Smoking status: Every Day Packs/day: 0.25 Years: 48.00 Additional pack years: 0.00 Total pack years: 12.00 Types: Cigarettes Smokeless tobacco: Never Tobacco comments: 3 cigs per day Vaping Use Vaping Use: Never used Substance Use Topics Alcohol use: No Drug use: No Objective BP 144/84 Pulse 76 Temp 36.3 ?C (97.3 ?F) (Tympanic) Resp 18 Wt 84.5 kg (186 lb 3.2 oz) SpO2 96% BMI 25.78 kg/m? Physical Exam Vitals reviewed. Constitutional: Appearance: Normal appearance. HENT: Head: Normocephalic and atraumatic. Musculoskeletal: Comments: Tenderness on palpation of the midline or paraspinal musculature of the lumbar back. Increased (more content not included)... [facility] 02-06-2023 Note HNO ID: [id number] Author: Anusha Livingston RT(R) Service: Radiology Author Type: Technologist Type: Progress Notes Filed: 02/06/2023 10:08 AM Note Text: Radiology Service Progress Note PATIENT NAME: Martinez Barton DATE OF SERVICE: February 06, 2023 TIME: 9:58 AM PATIENT IDENTITY VERIFICATION COMPLETED USING TWO (2) IDENTIFIERS: Name and Date of confirmed by patient verbally. FALL SCREENING: Has the patient had 2 falls in the last year or 1 fall with injury or currently using an Ambulatory Assistive Device (Walker, Cane, Wheelchair, Crutches, etc.)? No PATIENT GENDER DATA: Male PATIENT RELEVANT IMPLANT DATA REVIEWED: Yes RADIOLOGY DEPARTMENT: General X-ray: Exam(s) Completed: Spine X-Ray(s): Lumbar AP / LAT / L5-S1 PERIPHERAL IV DATA: Not applicable SIGNED BY: RT Yasmeen(R) February 06, 2023 9:58 AM [facility] 01-12-2023 Note HNO ID: [id number] Author: Lyric Brady RT(R) Service: Radiology Author Type: Technologist Type: Progress Notes Filed: 01/12/2023 11:31 AM Note Text: Radiology Service Progress Note PATIENT NAME: Martinez Barton DATE OF SERVICE: January 12, 2023 TIME: 11:23 AM PATIENT IDENTITY VERIFICATION COMPLETED USING TWO (2) IDENTIFIERS: Name and Date of confirmed by patient verbally. FALL SCREENING: Has the patient had 2 falls in the last year or 1 fall with injury or currently using an Ambulatory Assistive Device (Walker, Cane, Wheelchair, Crutches, etc.)? No PATIENT GENDER DATA: Male PATIENT RELEVANT IMPLANT DATA REVIEWED: Not Applicable RADIOLOGY DEPARTMENT: General X-ray: Exam(s) Completed: Upper Extremity X-Ray(s): Fingers/Thumb, left PERIPHERAL IV DATA: Not applicable SIGNED BY: RT Sophia(R) January 12, 2023 11:23 AM [facility] 01-12-2023 Note HNO ID: [id number] Author: Julisa Hernandez APRN.RU[employer]ER PRESS OPERATOR Service: ? Author Type: Nurse Practitioner Type: Progress Notes Filed: 01/12/2023 11:31 AM Note Text: Chief Complaint Patient presents with: lft side of back shingles: Noticed 2 days ago HPI Martinez Barton is a 57 year old male who presents here today for Above Complaints.. Martinez is an established patient of Dr. Camelia MD. Concerns today... Possible shingles-- Hx of shingles to same area on back numerous times. Last episode was in September when he went to urgent care (refer to chart). Takes valtrex and symptoms improve pretty quickly. This episode is similar to priors with symptoms of severe tingling/burning pain starting 2 days ago. Noticed rash starting close to midline of back at the same time with severe burning pain to the L lower back and slightly wrapping around side. Pt reports trying gabapentin, steroids, and amitriptyline for pain with no relief in the past. Unknown dosage of gabapentin that was tried. Pt reports starting on valtrex yesterday as he had some left over from last time. Finger pain -- L index finger pain x months to MCP joint. Denies any known fall or injury. Joint is swollen and hard to move. No redness. Thinks likely bad arthritis but has never been able to get into PCP to have this looked at. Feels like index finger on R hand is starting to get the same symptoms. No other concerns or complaints. Past medical history, appointments, medications, allergies reviewed. Previous Medical History PAST MEDICAL HISTORY Diagnosis Date Claudication ([facility]) 05/31/2017 GERD (gastroesophageal reflux disease) 04/24/2012 History of Helicobacter pylori infection 11/03/202110/2021 Migraines hasn't had since pinch nerve addressed in neck Mixed hyperlipidemia 10/11/2017 PAD (peripheral artery disease) ([facility]) 06/14/2017 PAD (peripheral artery disease) ([facility]) 06/14/2017 [facility] S/P bilateral stents/2017 and Lt common femoral to above the knee bypass 03/2021. Sebaceous cyst 02/14/2011 Smoker 05/31/2017 Started age 8 up 2 PPD, as of 09/2017 down to 2 cigs a day Type 2 diabetes mellitus without complication, without long-term current use of insulin ([facility]) 03/24/2020 Previous Surgical History PAST SURGICAL HISTORY Procedure Laterality Date ABDOMINAL SURGERY HX COLONOSCOPY 10/20/2021 tubular adenoma, repeat in 5 years COLONOSCOPY FLX DX W/COLLJ SPEC WHEN PFRMD 09/12/2010 Diverticulosis. [facility] inpt COLONOSCOPY FLX DX W/COLLJ SPEC WHEN PFRMD 05/01/2016 Colonoscopy, repeat 5 yrs EGD 10/20/2021 short-segment Hernandez's, per Dr. Eubanks repeat in 5 years ESOPHAGOGASTRODUODENOSCOPY TRANSORAL DIAGNOSTIC 09/12/2010 [facility] inpt/ H-pylori negative. Small hiatal hernia ESOPHAGOGASTRODUODENOSCOPY TRANSORAL DIAGNOSTIC 05/01/2016 EGD LAPAROSCOPIC CHOLECYSTECTOMY 04/14/2020 PAST SURGICAL HISTORY OF Bilateral 2018 LE stenting PAST SURGICAL HISTORY OF 04/01/2021 Left common femoral to above the knee bypass VASCULAR SURGERY PROCEDURE Family History FAMILY HISTORY Problem Relation Age of Onset Asthma Father Cancer Father lung Emphysema Father COPD Father Hypertension Father Breast Cancer Mother Hypertension Mother Breast Cancer Maternal Grandmother Cancer Brother colon, age 42 Patient Allergies ALLERGIES Allergen Reactions Chantix [Vareniclin* Vomiting Phenergan [Prometha* Swelling Pt states when taking in tablet form tongue and throat swelled. Pt reports he can take in in IV without reaction Pletal [Cilostazol] GI Upset Simvastatin Other: See Comments Bodyaches, flu-like sx Tramadol Rash, GI Upset Current Medications Current Outpatient Medications on File Prior to Visit Medication Sig metFORMIN ER (GLUCOPHAGE XR) 500 mg 24 hr tablet Take 1 tablet by mouth two times a day with meals. clopidogrel (PLAVIX) 75 mg tablet Take 1 tablet by mouth once daily. atorvastatin (LIPITOR) 20 mg tablet Take 1 tablet by mouth daily at bedtime. For cholesterol. ondansetron orally disintegrating (ZOFRAN ODT) 4 mg disintegrating tablet Take 1 tablet by mouth every 8 hours as needed. acetaminophen (TYLENOL) 325 mg tablet Take 2 tablets by mouth every 4 hours as needed for pain. blood sugar diagnostic (BLOOD GLUCOSE TEST) test strip Test blood sugar(s) 2 times daily. Dx: Type 2 DM - unControlled E11.9 Insulin: Yes insulin needles, DISPOSABLE, (PEN NEEDLE) 31 gauge x 5/16 Use one needle per dose. 4 per day. (Patient not taking: Reported on 10/02/2022) OMEPRAZOLE ORAL Take 20 mg by mouth once daily. aspirin, enteric coated (ADULT LOW DOSE ASPIRIN) 81 mg EC tablet Take 1 tablet by mouth once daily. No current facility-administered medications on file prior to visit. Social History Social History Tobacco Use Smoking status: Every Day Packs/day: 0.25 Years: 48.00 Additional pack years: 0.00 Total pack years: 12.00 Types: Cigarettes Smokeless to (more content not included)... [facility] 01-12-2023 History of Present illness Narrative Chief Complaint Patient presents with: lft side of back shingles: Noticed 2 days ago HPI Martinez Barton is a 57 year old male who presents here today for Above Complaints.. Martinez is an established patient of Dr. Camelia MD. Concerns today... Possible shingles-- Hx of shingles to same area on back numerous times. Last episode was in September when he went to urgent care (refer to chart). Takes valtrex and symptoms improve pretty quickly. This episode is similar to priors with symptoms of severe tingling/burning pain starting 2 days ago. Noticed rash starting close to midline of back at the same time with severe burning pain to the L lower back and slightly wrapping around side. Pt reports trying gabapentin, steroids, and amitriptyline for pain with no relief in the past. Unknown dosage of gabapentin that was tried. Pt reports starting on valtrex yesterday as he had some left over from last time. Finger pain -- L index finger pain x months to MCP joint. Denies any known fall or injury. Joint is swollen and hard to move. No redness. Thinks likely bad arthritis but has never been able to get into PCP to have this looked at. Feels like index finger on R hand is starting to get the same symptoms. No other concerns or complaints. Past medical history, appointments, medications, allergies reviewed. Previous Medical History PAST MEDICAL HISTORY Diagnosis Date Claudication ([facility]) 05/31/2017 GERD (gastroesophageal reflux disease) 04/24/2012 History of Helicobacter pylori infection 11/03/202110/2021 Migraines hasn't had since pinch nerve addressed in neck Mixed hyperlipidemia 10/11/2017 PAD (peripheral artery disease) ([facility]) 06/14/2017 PAD (peripheral artery disease) ([facility]) 06/14/2017 Seeing [facility] S/P bilateral stents and Lt common femoral to above the knee bypass 03/2021. Sebaceous cyst 02/14/2011 Smoker 05/31/2017 Started age 8 up 2 PPD, as of 09/2017 down to 2 cigs a day Type 2 diabetes mellitus without complication, without long-term current use of insulin ([facility]) 03/24/2020 Previous Surgical History PAST SURGICAL HISTORY Procedure Laterality Date ABDOMINAL SURGERY HX COLONOSCOPY 10/20/2021 tubular adenoma, repeat in 5 years COLONOSCOPY FLX DX W/COLLJ SPEC WHEN PFRMD 09/12/2010 Diverticulosis. [facility] inpt COLONOSCOPY FLX DX W/COLLJ SPEC WHEN PFRMD 05/01/2016 Colonoscopy, repeat 5 yrs EGD 10/20/2021 short-segment Hernandez's, per Dr. Eubanks repeat in 5 years ESOPHAGOGASTRODUODENOSCOPY TRANSORAL DIAGNOSTIC 09/12/2010 [facility] inpt/ H-pylori negative. Small hiatal hernia ESOPHAGOGASTRODUODENOSCOPY TRANSORAL DIAGNOSTIC 05/01/2016 EGD LAPAROSCOPIC CHOLECYSTECTOMY 04/14/2020 PAST SURGICAL HISTORY OF Bilateral 2018 LE stenting PAST SURGICAL HISTORY OF 04/01/2021 Left common femoral to above the knee bypass VASCULAR SURGERY PROCEDURE Family History FAMILY HISTORY Problem Relation Age of Onset Asthma Father Cancer Father lung Emphysema Father COPD Father Hypertension Father Breast Cancer Mother Hypertension Mother Breast Cancer Maternal Grandmother Cancer Brother colon, age 42 Patient Allergies ALLERGIES Allergen Reactions Chantix [Vareniclin* Vomiting Phenergan [Prometha* Swelling Pt states when taking in tablet form tongue and throat swelled. Pt reports he can take in in IV without reaction Pletal [Cilostazol] GI Upset Simvastatin Other: See Comments Bodyaches, flu-like sx Tramadol Rash, GI Upset Current Medications Current Outpatient Medications on File Prior to Visit Medication Sig metFORMIN ER (GLUCOPHAGE XR) 500 mg 24 hr tablet Take 1 tablet by mouth two times a day with meals. clopidogrel (PLAVIX) 75 mg tablet Take 1 tablet by mouth once daily. atorvastatin (LIPITOR) 20 mg tablet Take 1 tablet by mouth daily at bedtime. For cholesterol. ondansetron orally disintegrating (ZOFRAN ODT) 4 mg disintegrating tablet Take 1 tablet by mouth every 8 hours as needed. acetaminophen (TYLENOL) 325 mg tablet Take 2 tablets by mouth every 4 hours as needed for pain. blood sugar diagnostic (BLOOD GLUCOSE TEST) test strip Test blood sugar(s) 2 times daily. Dx: Type 2 DM - unControlled E11.9 Insulin: Yes insulin needles, DISPOSABLE, (PEN NEEDLE) 31 gauge x 5/16 Use one needle per dose. 4 per day. (Patient not taking: Reported on 10/02/2022) OMEPRAZOLE ORAL Take 20 mg by mouth once daily. aspirin, enteric coated (ADULT LOW DOSE ASPIRIN) 81 mg EC tablet Take 1 tablet by mouth once daily. No current facility-administered medications on file prior to visit. Social History Social History Tobacco Use Smoking status: Every Day Packs/day: 0.25 Years: 48.00 Additional pack years: 0.00 Total pack years: 12.00 Types: Cigarettes Smokeless tobacco: Never Tobacco comments: 3 cigs per day Vaping Use Vaping Use: Never used Substance Use Topics Alcohol use: No Drug use: No REVIEW OF SYSTEMS: as above Reviewed relevant PMHx, PSHx, Social Hx, current medications and allergies. Review of Symptoms REVIEW OF SYSTEMS See HPI. EXAM: BP 120/58 (BP Site: Right Arm, BP Position: Sitting, BP Cuff Size: Regular Adult) Pulse 90 Temp 36.6 C (97.9 F) Resp 14 Wt 83.1 kg (183 lb 3.2 oz) SpO2 94% BMI 25.37 kg/m General Appearance: Well appearing, alert, in no acute distress, well-hydrated, well nourished. Skin: Skin color, texture, turgor normal. Rash: start of shingles rash directly L of midline of lower thoracic back with circular blistering and some erythema to L lower back region next to it. Head: Normocephalic, no masses, lesions, tenderness or abnormalities. Back:see above rash. Extremities: No deformities, edema, skin discoloration, clubbing or cyanosis. Good capillary refill. , Positive findings: joint location: index finger on left mcp(s) pain, swelling, painful movement, and stiffness. Health Maintenance List Shingrix Vaccine(2 of 2) due on 04/14/2021 HbA1C due on 09/13/2022 Influenza Vaccine(1) due on 10/13/2022 Covid-19 Vaccine(4 - season) due on 10/13/2022 Urine Albumin:Creatinine Ratio due on 03/16/2023 LDL Cholesterol due on 03/16/2023 Annual PCP Team Chronic Disease Visit due on 04/06/2023 Dilated Retinal Exam due on 04/18/2023 Diabetic Foot Exam due on 06/07/2023 Colorectal Cancer Screening due on 10/20/2026 Prostate Cancer Screening Discussion due on 03/16/2027 DTaP,Tdap,Td Vaccine(4 - Td or Tdap) due on 10/12/2027 Pneumococcal Vaccine(3 - PPSV23 or PCV20) due on 09/21/2028 Depression Assessment Completed Hepatitis C Screening Completed HIV Screening Completed ASSESSMENT/PLAN: 1. Herpes zoster without complication - ICD9: 053.9, ICD10: B02.9 (primary diagnosis) Flare up to same area as priors. Start valtrex TID x 7 days. Trial gabapentin 200 mg TID as needed for severe discomfort (increased dosage from 100 to 200 mg due to pt reports no relief in the past with this medication). RTO with PCP team if no relief. - VALACYCLOVIR 1 GRAM TABLET - GABAPENTIN 100 MG CAPSULE 2. Pain of finger of left hand - ICD9: 729.5, ICD10: M79.645 X-ray index finger of L hand. Likely arthritis. No concerns with gout due to presentation. Rule out injury with x-ray. - XR DIGIT GENERAL 3V FRONTAL/LAT/OBL LEFT RTO as needed. Prescription instructions reviewed with patient as applicable. Potential red flag symptoms discussed with the patient. Reviewed appropriate action plan to take if red flag symptoms occur. Patient agreeable to treatment plan. Julisa Diane APRN.RUBBER PRESS OPERATOR [address] [place] [address] documented in this encounter [facility] 10-02-2022 Note HNO ID: [id number] Author: Francine Martines APRN.SAMMI Service: ? Author Type: Nurse Practitioner Type: Progress Notes Filed: 10/02/2022 12:48 PM Note Text: Subjective Rash Pertinent negatives include no fever or joint pain. Martinez Barton is a 57 year old male who presents with a rash on his lower back. This started yesterday. He has had this multiple times in the past and it recurs in the same location. He has had one dose of the shingles vaccine. He states the rash is burning and itching. Review of Systems Constitutional: Negative for chills and fever. Musculoskeletal: Negative for joint pain and myalgias. Skin: Positive for itching and rash. BP 130/64 Pulse 78 Temp 36.7 ?C (98.1 ?F) Resp 21 Wt 81.8 kg (180 lb 6.4 oz) SpO2 97% BMI 24.98 kg/m? PAST MEDICAL HISTORY Diagnosis Date - Claudication ([facility]) 05/31/2017 - GERD (gastroesophageal reflux disease) 04/24/2012 - History of Helicobacter pylori infection 11/03/202110/2021 - Migraines hasn't had since pinch nerve addressed in neck - Mixed hyperlipidemia 10/11/2017 - PAD (peripheral artery disease) ([facility]) 06/14/2017 - PAD (peripheral artery disease) ([facility]) 06/14/2017 [facility] S/P bilateral stents and Lt common femoral to above the knee bypass 03/2021. - Sebaceous cyst 02/14/2011 - Smoker 05/31/2017 Started age 8 up 2 PPD, as of 09/2017 down to 2 cigs a day - Type 2 diabetes mellitus without complication, without long-term current use of insulin ([facility]) 03/24/2020 PAST SURGICAL HISTORY Procedure Laterality Date - ABDOMINAL SURGERY HX - COLONOSCOPY 10/20/2021 tubular adenoma, repeat in 5 years - COLONOSCOPY FLX DX W/COLLJ SPEC WHEN PFRMD 09/12/2010 Diverticulosis. [facility] inpt - COLONOSCOPY FLX DX W/COLLJ SPEC WHEN PFRMD 05/01/2016 Colonoscopy, repeat 5 yrs - EGD 10/20/2021 short-segment Hernandez's, per Dr. Eubanks repeat in 5 years - ESOPHAGOGASTRODUODENOSCOPY TRANSORAL DIAGNOSTIC 09/12/2010 [facility] inpt/ H-pylori negative. Small hiatal hernia - ESOPHAGOGASTRODUODENOSCOPY TRANSORAL DIAGNOSTIC 05/01/2016 EGD - LAPAROSCOPIC CHOLECYSTECTOMY 04/14/2020 - PAST SURGICAL HISTORY OF Bilateral 2018 LE stenting - PAST SURGICAL HISTORY OF 04/01/2021 Left common femoral to above the knee bypass - VASCULAR SURGERY PROCEDURE ALLERGIES Chantix [Varenicline], Phenergan [Promethazine Hcl], Pletal [Cilostazol], Simvastatin, and Tramadol MEDICATIONS - atorvastatin (LIPITOR) 20 mg tablet Take 1 tablet by mouth daily at bedtime. For cholesterol. - ondansetron orally disintegrating (ZOFRAN ODT) 4 mg disintegrating tablet Take 1 tablet by mouth every 8 hours as needed. - clopidogrel (PLAVIX) 75 mg tablet Take 1 tablet by mouth once daily. - metFORMIN ER (GLUCOPHAGE XR) 500 mg 24 hr tablet Take 1 tablet by mouth twice daily with meals. - acetaminophen (TYLENOL) 325 mg tablet Take 2 tablets by mouth every 4 hours as needed for pain. - blood sugar diagnostic (BLOOD GLUCOSE TEST) test strip Test blood sugar(s) 2 times daily. Dx: Type 2 DM - unControlled E11.9 Insulin: Yes - OMEPRAZOLE ORAL Take 20 mg by mouth once daily. - aspirin, enteric coated (ADULT LOW DOSE ASPIRIN) 81 mg EC tablet Take 1 tablet by mouth once daily. - valACYclovir (VALTREX) 1 gram Take 1 tablet by mouth three times daily for 7 days. - insulin needles, DISPOSABLE, (PEN NEEDLE) 31 gauge x 5/16 Use one needle per dose. 4 per day. (Patient not taking: Reported on 10/02/2022) FAMILY HISTORY Problem Relation Age of Onset - Asthma Father - Cancer Father lung - Emphysema Father - COPD Father - Hypertension Father - Breast Cancer Mother - Hypertension Mother - Breast Cancer Maternal Grandmother - Cancer Brother colon, age 42 Social History Tobacco Use - Smoking status: Every Day Packs/day: 0.25 Years: 48.00 Additional pack years: 0.00 Total pack years: 12.00 Types: Cigarettes - Smokeless tobacco: Never - Tobacco comments: 3 cigs per day Vaping Use - Vaping Use: Never used Substance Use Topics - Alcohol use: No - Drug use: No Objective Physical Exam Vitals and nursing note reviewed. Constitutional: Appearance: Normal appearance. Cardiovascular: Rate and Rhythm: Normal rate. Pulmonary: Effort: Pulmonary effort is normal. Skin: General: Skin is warm and dry. Findings: Rash present. No erythema. Neurological: Mental Status: He is alert. ASSESSMENT/PLAN: 1. Herpes zoster without complication - ICD9: 053.9, ICD10: B02.9 - VALACYCLOVIR 1 GRAM TABLET - Follow-up with your PCP in 3-5 days if symptoms have not improved or sooner if symptoms worsen - Discussed red flags and need for immediate medical evaluation if any occur. - Discussed supportive care treatment with fluids, rest and analgesia. - Discussed expected course of illness Francine Martines APRN.[facility] 06-06-2022 Note HNO ID: [id number] Author: David Yu Service: ? Author Type: Physician Type: Progress Notes Filed: 06/06/2022 8:59 AM Note Text: Subjective: This 56 year old male presents to clinic for diabetic foot check.. Patient admits to being diabetic for 1 years now. Patient -B/T/N in feet at this time. Patient -pain in legs when walking. No other pedal complaints at this time. No change in medications or medical history since last visit. Patient smokes 3 cigarettes/day. He is in process of quitting. PAIN EVALUATION No data found in the last 1 encounters. Hemoglobin A1C (%) Date Value 03/16/2022 6.1 10/03/2021 6.5 03/23/2021 6.3 09/20/2020 7.7 03/23/2020 7.3 04/11/2018 6.3 10/11/2017 6.2 PCP: Mateo Denise MD PAST MEDICAL HISTORY Diagnosis Date Claudication ([facility]) 05/31/2017 GERD (gastroesophageal reflux disease) 04/24/2012 History of Helicobacter pylori infection 11/03/202110/2021 Migraines hasn't had since pinch nerve addressed in neck Mixed hyperlipidemia 10/11/2017 PAD (peripheral artery disease) ([facility]) 06/14/2017 PAD (peripheral artery disease) ([facility]) 06/14/2017 Seeing [facility] S/P bilateral stents and Lt common femoral to above the knee bypass 03/2021. Sebaceous cyst 02/14/2011 Smoker 05/31/2017 Started age 8 up 2 PPD, as of 09/2017 down to 2 cigs a day Type 2 diabetes mellitus without complication, without long-term current use of insulin ([facility]) 03/24/2020 Current Outpatient Medications Medication Sig ondansetron orally disintegrating (ZOFRAN ODT) 4 mg disintegrating tablet Take 1 tablet by mouth every 8 hours as needed. atorvastatin (LIPITOR) 20 mg tablet Take 1 tablet by mouth daily at bedtime. For cholesterol. clopidogrel (PLAVIX) 75 mg tablet Take 1 tablet by mouth once daily. metFORMIN ER (GLUCOPHAGE XR) 500 mg 24 hr tablet Take 1 tablet by mouth twice daily with meals. acetaminophen (TYLENOL) 325 mg tablet Take 2 tablets by mouth every 4 hours as needed for pain. blood sugar diagnostic (BLOOD GLUCOSE TEST) test strip Test blood sugar(s) 2 times daily. Dx: Type 2 DM - unControlled E11.9 Insulin: Yes insulin needles, DISPOSABLE, (PEN NEEDLE) 31 gauge x 5/16 Use one needle per dose. 4 per day. OMEPRAZOLE ORAL Take 20 mg by mouth once daily. aspirin, enteric coated (ADULT LOW DOSE ASPIRIN) 81 mg EC tablet Take 1 tablet by mouth once daily. No current facility-administered medications for this visit. ALLERGIES Allergen Reactions Chantix [Vareniclin* Vomiting Phenergan [Prometha* Swelling Pt states when taking in tablet form tongue and throat swelled. Pt reports he can take in in IV without reaction Pletal [Cilostazol] GI Upset Simvastatin Other: See Comments Bodyaches, flu-like sx Tramadol Rash, GI Upset PAST SURGICAL HISTORY Procedure Laterality Date ABDOMINAL SURGERY HX COLONOSCOPY 10/20/2021 tubular adenoma, repeat in 5 years COLONOSCOPY FLX DX W/COLLJ SPEC WHEN PFRMD 09/12/2010 Diverticulosis. [facility] inpt COLONOSCOPY FLX DX W/COLLJ SPEC WHEN PFRMD 05/01/2016 Colonoscopy, repeat 5 yrs EGD 10/20/2021 short-segment Hernandez's, per Dr. Eubanks repeat in 5 years ESOPHAGOGASTRODUODENOSCOPY TRANSORAL DIAGNOSTIC 09/12/2010 [facility] inpt/ H-pylori negative. Small hiatal hernia ESOPHAGOGASTRODUODENOSCOPY TRANSORAL DIAGNOSTIC 05/01/2016 EGD LAPAROSCOPIC CHOLECYSTECTOMY 04/14/2020 PAST SURGICAL HISTORY OF Bilateral 2018 LE stenting PAST SURGICAL HISTORY OF 04/01/2021 Left common femoral to above the knee bypass VASCULAR SURGERY PROCEDURE FAMILY HISTORY Problem Relation Age of Onset Asthma Father Cancer Father lung Emphysema Father COPD Father Hypertension Father Breast Cancer Mother Hypertension Mother Breast Cancer Maternal Grandmother Cancer Brother colon, age 42 Social History Tobacco Use Smoking status: Every Day Packs/day: 0.25 Years: 48.00 Pack years: 12.00 Types: Cigarettes Smokeless tobacco: Never Tobacco comments: 3 cigs per day Vaping Use Vaping Use: Never used Substance Use Topics Alcohol use: No Drug use: No REVIEW OF SYSTEMS GENERAL: Negative for Malaise, significant weight loss, fever RESPIRATORY: Negative for cough, wheezing and shortness of breath CARDIOVASCULAR: Negative for chest pain, leg swelling and palpitations GI: Negative for abdominal discomfort, blood in stools or black stools and change in bowel habits : Negative for dysuria, frequency and incontinence MUSCULOSKELETAL: Negative for joint pain or swelling, back pain, and muscle pain. SKIN: Negative for lesions, rash, and itching. HEMATOLOGY/LYMPHOLOGY Negative for prolonged bleeding, bruising easily, and swollen nodes. ENDOCRINE: Negative for cold or heat intolerance, polyuria, polydipsia and goiter. NEURO: negative The remainder of the review of systems is noncontributory. 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 [facility] 06-06-2022 Note HNO ID: [id number] Author: Soraya Barrera RN Service: ? Author Type: Registered Nurse Type: Progress Notes Filed: 06/06/2022 8:59 AM Note Text: Patient presents with: Left Foot - Established Patient, Follow Up, Diabetic Foot Care Right Foot - Established Patient, Follow Up, Diabetic Foot Care Patient presents for follow up diabetic foot check. Denies any pain or problems with his feet at this time. [facility] 06-06-2022 Instructions David Yu - 06/06/2022 8:48 AM EDT Diabetes Foot Care Instructions When you have diabetes, proper foot care is very important. Poor foot care may lead to amputation of a foot or leg. As a person with diabetes, you are more vulnerable to foot problems, because diabetes can damage your nerves and reduce blood flow to your feet. Here are some diabetes foot care tips to follow: Wash and Dry Your Feet Daily Use mild soaps Use warm water Pat your skin dry; do not rub. Thoroughly dry your feet. After washing, use lotion on your feet to prevent cracking. Do not put lotion between your toes. Examine Your Feet Each Day Check the tops and bottoms of your feet. Have someone else look at your feet if you cannot see them. Check for dry, cracked skin. Look for blisters, cuts, scratches, or other sores. Check for redness, increased warmth, or tenderness when touching any area of your feet. Check for ingrown toenails, corns, and calluses. If you get a blister or sore from your shoes, do not pop it. Apply a bandage and wear a different pair of shoes. Take Care of Your Toenails Cut toenails after bathing, when they are soft. Cut toenails straight across and smooth with a nail file. Avoid cutting into the corners of toes. Do not cut cuticles. If you have neuropathy (or decreased sensation in your feet) a retail merchandising manager should always cut your toenails. Be Careful When Exercising Walk and exercise in comfortable shoes. Do not exercise when you have open sores on your feet. Protect Your Feet With Shoes and Socks Never go barefoot. Always protect your feet by wearing shoes or hard-soled slippers or footwear. Avoid shoes with high heels and pointed toes. Avoid shoes that expose your toes or heels (such as open-toed shoes or sandals). These types of shoes increase your risk for injury and potential infections. Try on new footwear with the type of socks you usually wear. Do not wear new shoes for more than an hour at a time. Change your socks daily. Look and feel inside your shoes before putting them on to make sure there are no foreign objects or rough areas. Avoid tight socks. Wear natural-fiber socks (cotton, wool, or a cotton-wool blend). Wear special shoes if your health care provider recommends them. Wear shoes/boots that will protect your feet from various weather conditions (cold, moisture, etc.). Make sure your shoes fit properly. If you have neuropathy (nerve damage), you may not notice that your shoes are too tight. Perform the footwear test described below. Footwear Test Use this simple test to see if your shoes fit correctly: Stand on a piece of paper. (Make sure you are standing and not sitting, because your foot changes shape when you stand.) Trace the outline of your foot. Trace the outline of your shoe. Compare the tracings: Is the shoe too narrow? Is your foot crammed into the shoe? The shoe should be at least 1/2 inch longer than your longest toe and as wide as your foot. Proper Shoe Choices The following types of shoes are best for people with diabetes Closed toes and heels Leather uppers without a seam inside At least 1/2 inch extra space at the end of your longest toe Inside of shoe should be soft with no rough areas Outer sole should be made of stiff material Shoes should be at least as wide as your feet Tips for Foot Care in Diabetes Don't wait to treat a minor foot problem if you have diabetes. Follow your health care provider's guidelines and first aid guidelines. Report foot injuries and infections to your health care provider immediately. Check water temperature with your elbow, not your foot. Do not use a heating pad on your feet. Do not cross your legs. Do not self-treat your corns, calluses, or other foot problems. Go to your health care provider or retail merchandising manager to treat these conditions. documented in this encounter [facility] 06-06-2022 History of Present illness Narrative Subjective: This 56 year old male presents to clinic for diabetic foot check.. Patient admits to being diabetic for 1 years now. Patient -B/T/N in feet at this time. Patient -pain in legs when walking. No other pedal complaints at this time. No change in medications or medical history since last visit. Patient smokes 3 cigarettes/day. He is in process of quitting. PAIN EVALUATION No data found in the last 1 encounters. Hemoglobin A1C (%) Date Value 03/16/2022 6.1 10/03/2021 6.5 03/23/2021 6.3 09/20/2020 7.7 03/23/2020 7.3 04/11/2018 6.3 10/11/2017 6.2 PCP: Mateo Denise MD PAST MEDICAL HISTORY Diagnosis Date Claudication ([facility]) 05/31/2017 GERD (gastroesophageal reflux disease) 04/24/2012 History of Helicobacter pylori infection 11/03/202110/2021 Migraines hasn't had since pinch nerve addressed in neck Mixed hyperlipidemia 10/11/2017 PAD (peripheral artery disease) ([facility]) 06/14/2017 PAD (peripheral artery disease) ([facility]) 06/14/2017 Seeing [facility] S/P bilateral stents and Lt common femoral to above the knee bypass 03/2021. Sebaceous cyst 02/14/2011 Smoker 05/31/2017 Started age 8 up 2 PPD, as of 09/2017 down to 2 cigs a day Type 2 diabetes mellitus without complication, without long-term current use of insulin ([facility]) 03/24/2020 Current Outpatient Medications Medication Sig ondansetron orally disintegrating (ZOFRAN ODT) 4 mg disintegrating tablet Take 1 tablet by mouth every 8 hours as needed. atorvastatin (LIPITOR) 20 mg tablet Take 1 tablet by mouth daily at bedtime. For cholesterol. clopidogrel (PLAVIX) 75 mg tablet Take 1 tablet by mouth once daily. metFORMIN ER (GLUCOPHAGE XR) 500 mg 24 hr tablet Take 1 tablet by mouth twice daily with meals. acetaminophen (TYLENOL) 325 mg tablet Take 2 tablets by mouth every 4 hours as needed for pain. blood sugar diagnostic (BLOOD GLUCOSE TEST) test strip Test blood sugar(s) 2 times daily. Dx: Type 2 DM - unControlled E11.9 Insulin: Yes insulin needles, DISPOSABLE, (PEN NEEDLE) 31 gauge x 5/16 Use one needle per dose. 4 per day. OMEPRAZOLE ORAL Take 20 mg by mouth once daily. aspirin, enteric coated (ADULT LOW DOSE ASPIRIN) 81 mg EC tablet Take 1 tablet by mouth once daily. No current facility-administered medications for this visit. ALLERGIES Allergen Reactions Chantix [Vareniclin* Vomiting Phenergan [Prometha* Swelling Pt states when taking in tablet form tongue and throat swelled. Pt reports he can take in in IV without reaction Pletal [Cilostazol] GI Upset Simvastatin Other: See Comments Bodyaches, flu-like sx Tramadol Rash, GI Upset PAST SURGICAL HISTORY Procedure Laterality Date ABDOMINAL SURGERY HX COLONOSCOPY 10/20/2021 tubular adenoma, repeat in 5 years COLONOSCOPY FLX DX W/COLLJ SPEC WHEN PFRMD 09/12/2010 Diverticulosis. [facility] inpt COLONOSCOPY FLX DX W/COLLJ SPEC WHEN PFRMD 05/01/2016 Colonoscopy, repeat 5 yrs EGD 10/20/2021 short-segment Hernandez's, per Dr. Eubanks repeat in 5 years ESOPHAGOGASTRODUODENOSCOPY TRANSORAL DIAGNOSTIC 09/12/2010 [facility] inpt/ H-pylori negative. Small hiatal hernia ESOPHAGOGASTRODUODENOSCOPY TRANSORAL DIAGNOSTIC 05/01/2016 EGD LAPAROSCOPIC CHOLECYSTECTOMY 04/14/2020 PAST SURGICAL HISTORY OF Bilateral 2018 LE stenting PAST SURGICAL HISTORY OF 04/01/2021 Left common femoral to above the knee bypass VASCULAR SURGERY PROCEDURE FAMILY HISTORY Problem Relation Age of Onset Asthma Father Cancer Father lung Emphysema Father COPD Father Hypertension Father Breast Cancer Mother Hypertension Mother Breast Cancer Maternal Grandmother Cancer Brother colon, age 42 Social History Tobacco Use Smoking status: Every Day Packs/day: 0.25 Years: 48.00 Pack years: 12.00 Types: Cigarettes Smokeless tobacco: Never Tobacco comments: 3 cigs per day Vaping Use Vaping Use: Never used Substance Use Topics Alcohol use: No Drug use: No REVIEW OF SYSTEMS GENERAL: Negative for Malaise, significant weight loss, fever RESPIRATORY: Negative for cough, wheezing and shortness of breath CARDIOVASCULAR: Negative for chest pain, leg swelling and palpitations GI: Negative for abdominal discomfort, blood in stools or black stools and change in bowel habits : Negative for dysuria, frequency and incontinence MUSCULOSKELETAL: Negative for joint pain or swelling, back pain, and muscle pain. SKIN: Negative for lesions, rash, and itching. HEMATOLOGY/LYMPHOLOGY Negative for prolonged bleeding, bruising easily, and swollen nodes. ENDOCRINE: Negative for cold or heat intolerance, polyuria, polydipsia and goiter. NEURO: negative The remainder of the review of systems is noncontributory. Objective: Patient presents to clinic ambulating in boots Constitutional: Pt is a well developed 56 year old male who is alert, oriented, cooperative and in no apparent distress. Eyes: Following during examination. No redness or drainage. Respiratory: RR normal and nonlabored. Even breathing. No evidence of distress. Psychology: Patient is engaged during conversation. Normal affect and mood. Does not appear depressed or anxious. Vasc: DP and PT pulses are palpable bilateral. CFT is less than 5 seconds bilateral. Skin temperature is warm to warm proximal to distal bilateral. There is no edema or varicosities noted. Hair growth present. Neuro: Protective sensation is intact to the foot and toes when tested with the 5.07 SWM bilateral. Vibratory sensation is decreased at the hallux bilateral. Significant neurological defecits. Derm: Inspection and palpation performed. Nails 1-5 are normal in length and thickness. Skin is of normal turgor and texture. Hyperkeratosis noted to not present. NO ulcerations, scars, verruca or other lesions noted. Ortho: Ankle joint DF is full with the knee extended and full with knee flexed. No pain or crepitus noted. STJ, MTJ ROM are full and free of pain or crepitus. Muscle strength is 5/5 for dorsiflexors, plantarflexors, inverters, everters. Digital deformities include tailors bunion b/l. Assessment: (E11.51) Type 2 diabetes mellitus with diabetic peripheral angiopathy without gangrene, unspecified whether care home insulin use (HCC) (primary encounter diagnosis) (M21.629) Tailor's bunion, unspecified laterality Plan: 1. Patient was seen and evaluated. 2. Patient was instructed on the continued importance of diabetic foot care along with proper diet and keeping their blood sugar under control to prevent complications. Instructions given both oral and written. 3. Discussed small tailors bunion of b/l feet. Discussed wider shoes vs diabetic shoes. Patient elected to continue with wider shoes 4. Smoking cessation encouraged 5. F/u in 1 year or sooner if problems arise. David Yu DPM Patient presents with: Left Foot - Established Patient, Follow Up, Diabetic Foot Care Right Foot - Established Patient, Follow Up, Diabetic Foot Care Patient presents for follow up diabetic foot check. Denies any pain or problems with his feet at this time. documented in this encounter [facility] 04-07-2022 Miscellaneous Notes Pt informed, verbalized understanding Catherine Dos Santos The following approved medication requests have been transmitted electronically. Requested Prescriptions Signed Prescriptions Disp Refills dicyclomine (BENTYL) 10 mg capsule 120 capsule 0 Sig: Take 1 capsule by mouth before meals and at bedtime. Authorizing Provider: JULISA HERNANDEZ Ordering User: LUZ FITZGERALD APRN.CNP Pt informed, verbalized understanding. [place] have Bentyl until sometime tomorrow. [facility] [place]. Catherine Dos Santos Please call patient and let him know that COVID and flu testing was negative. CT of abd was also normal. Likely just a viral GI bug -- continue to push fluids and rest. Eat and drink normally. Thank you, Julisa Hernandez APRN.SAMMI documented in this encounter [facility] 04-06-2022 Note HNO ID: [id number] Author: RT Jordan(R) Service: ? Author Type: Oss Architect Type: Progress Notes Filed: 04/06/2022 4:14 PM Note Text: Radiology Service Progress Note DATE OF SERVICE: April 06, 2022 TIME: 4:14 PM PATIENT IDENTITY VERIFICATION COMPLETED USING TWO (2) STANDARD IDENTIFIERS: Name and Date of confirmed by patient verbally. FALL SCREENING: Has the patient had 2 falls in the last year or 1 fall with injury or currently using an Ambulatory Assistive Device (Walker, Cane, Wheelchair, Crutches, etc.)? No PATIENT GENDER DATA: Male PATIENT RELEVANT IMPLANT DATA REVIEWED: Yes ALLERGIES: Reviewed and unchanged CONTRAST ALLERGY: NO. EXAM: CT -CONTRAST INDUCED NEPHROPATHY RISK FACTORS: Patient age > 60 years CREATININE: Creatinine Date Value Ref Range Status 04/05/2022 0.89 0.73 - 1.22 mg/dL Final 03/16/2022 0.98 0.73 - 1.22 mg/dL Final 04/04/2021 0.90 0.70 - 1.40 mg/dL Final Estimated Glomerular Filtration Rate Date Value Ref Range Status 04/05/2022 99 >=60 mL/min/1.73m? Final Comment: Estimated Glomerular Filtration Rate (eGFR) is calculated using the 2020 CKD-EPI creatinine equation. This equation utilizes serum creatinine, sex, and age as parameters. The creatinine assay has traceable calibration to isotope dilution-mass spectrometry. Refer to KDIGO guidelines for clinical interpretation. In patients with unstable renal function, e.g. those with acute kidney injury, the eGFR may not accurately reflect actual GFR. eGFR- Date Value Ref Range Status 04/04/2021 >60 >59 Final P.O.C.T. RESULTS: POC done: Yes, See Lab Tab April 06, 2022 TREATMENT: N/A PERIPHERAL IV DATA: Ambulatory: A peripheral IV was started in the Left antecubital site with a Angio cath: 22 gauge. RADIOLOGY DEPARTMENT: CT; Exam(s) Completed: Abdomen/Pelvis SIGNATURE: RT Johnson(R) PATIENT NAME: Martinez Barton DATE: April 06, 2022 TIME: 4:14 PM [facility] 04-06-2022 Note HNO ID: [id number] Author: Julisa Hernandez APRN.RUBBER PRESS OPERATOR Service: ? Author Type: Nurse Practitioner Type: Progress Notes Filed: 04/06/2022 11:40 AM Note Text: Chief Complaint Patient presents with: urgent care f/up: Started Sunday evening started with vomiting and body aches chills, nausea stomach pain, was given zofran for nausea, has helped no vomiting since felt nausea but takes pill and is fine, drainage cough, taking mucinex HPI Martinez Barton is a 56 year old male who presents here today for Above Complaints. Martinez is an established patient of Dr. Camelia MD. Martinez is a new patient to me today. Express Care follow-up --- Seen in express care yesterday d/t n/v, generalized abd pain, and sore throat. Strep test was negative. Per EC note: Nausea and vomiting, unspecified vomiting type - ICD9: 787.01, ICD10: R11.2 Patient abdomen today reveals generalized tenderness with no specific point tenderness. Bowel sounds are active. I will check CBC some, CMP and lipase. Given Zofran for nausea. His is starting to have similar symptoms today with nausea and abdominal cramping, likely is viral illness. Discussed with patient if his pain worsens or he develops fever or intractable vomiting, blood in vomit or stool needs to be seen in the emergency department. He understood and is agreeable with plan. Otherwise would recommend follow-up with PCP. - ONDANSETRON 4 MG DISINTEGRATING TABLET - CBC + DIFF - COMP METABOLIC PANEL - LIPASE BLD Lab work unremarkable. Currently today... Nausea and vomiting is improved d/t taking zofran around the clock. Without zofran, vomiting returns. Pt started with symptoms Sunday night. got nausea, chills, and abd cramping on Sunday. is back to work today and feeling better. Pt's symptoms are much more severe and lasting much longer. Eating and drinking as much as he can. Drinking ltos of Gatorade. Only have 2 pieces of toast yesterday. 2 hours of sleep a night since Sunday d/t body aches and abd discomfort. Body aches are his biggest symptom/concern currently. No fever/chills. COVID testing at work yesterday was negative. Did not get flu shot this year. Ended up leaving work yesterday d/t abd pain and nausea. Abd pain varies/intermittent -- painful to touch. Significant bloating and distention yesterday. Not as much bloating today. Reports intermittent cramping in lower abdomin. Last BM was this morning, small amount and soft. Cough -- productive with yellow thick sputum. Sinus drainage Hx of status post cholecystectomy. Hx of h.pylori in the past. Past medical history, appointments, medications, allergies reviewed. Previous Medical History PAST MEDICAL HISTORY Diagnosis Date Claudication ([facility]) 05/31/2017 GERD (gastroesophageal reflux disease) 04/24/2012 History of Helicobacter pylori infection 11/03/202110/2021 Migraines hasn't had since pinch nerve addressed in neck Mixed hyperlipidemia 10/11/2017 PAD (peripheral artery disease) ([facility]) 06/14/2017 PAD (peripheral artery disease) ([facility]) 06/14/2017 [facility] S/P bilateral stents/2017 and Lt common femoral to above the knee bypass 03/2021. Sebaceous cyst 02/14/2011 Smoker 05/31/2017 Started age 8 up 2 PPD, as of 09/2017 down to 2 cigs a day Type 2 diabetes mellitus without complication, without long-term current use of insulin ([facility]) 03/24/2020 Previous Surgical History PAST SURGICAL HISTORY Procedure Laterality Date ABDOMINAL SURGERY HX COLONOSCOPY 10/20/2021 tubular adenoma, repeat in 5 years COLONOSCOPY FLX DX W/COLLJ SPEC WHEN PFRMD 09/12/2010 Diverticulosis. [facility] inpt COLONOSCOPY FLX DX W/COLLJ SPEC WHEN PFRMD 05/01/2016 Colonoscopy, repeat 5 yrs EGD 10/20/2021 short-segment Hernandez's, per Dr. Eubanks repeat in 5 years ESOPHAGOGASTRODUODENOSCOPY TRANSORAL DIAGNOSTIC 09/12/2010 [facility] inpt/ H-pylori negative. Small hiatal hernia ESOPHAGOGASTRODUODENOSCOPY TRANSORAL DIAGNOSTIC 05/01/2016 EGD LAPAROSCOPIC CHOLECYSTECTOMY 04/14/2020 PAST SURGICAL HISTORY OF Bilateral 2018 LE stenting PAST SURGICAL HISTORY OF 04/01/2021 Left common femoral to above the knee bypass VASCULAR SURGERY PROCEDURE Family History FAMILY HISTORY Problem Relation Age of Onset Asthma Father Cancer Father lung Emphysema Father COPD Father Hypertension Father Breast Cancer Mother Hypertension Mother Breast Cancer Maternal Grandmother Cancer Brother colon, age 42 Patient Allergies ALLERGIES Allergen Reactions Chantix [Vareniclin* Vomiting Phenergan [Prometha* Swelling Pt states when taking in tablet form tongue and throat swelled. Pt reports he can take in in IV without reaction Pletal [Cilostazol] GI Upset Simvastatin Other: See Comments Bodyaches, flu-like sx Tramadol Rash, GI Upset Current Medications Current Outpatient Medications on File Prior to Visit Medication Sig ondansetron orally disin (more content not included)... [facility] 04-06-2022 History of Present illness Narrative Chief Complaint Patient presents with: urgent care f/up: Started Sunday evening started with vomiting and body aches chills, nausea stomach pain, was given zofran for nausea, has helped no vomiting since felt nausea but takes pill and is fine, drainage cough, taking mucinex HPI Martinez Barton is a 56 year old male who presents here today for Above Complaints. Martinez is an established patient of Dr. Camelia MD. Martinez is a new patient to me today. Express Care follow-up --- Seen in express care yesterday d/t n/v, generalized abd pain, and sore throat. Strep test was negative. Per EC note: Nausea and vomiting, unspecified vomiting type - ICD9: 787.01, ICD10: R11.2 Patient abdomen today reveals generalized tenderness with no specific point tenderness. Bowel sounds are active. I will check CBC some, CMP and lipase. Given Zofran for nausea. His is starting to have similar symptoms today with nausea and abdominal cramping, likely is viral illness. Discussed with patient if his pain worsens or he develops fever or intractable vomiting, blood in vomit or stool needs to be seen in the emergency department. He understood and is agreeable with plan. Otherwise would recommend follow-up with PCP. - ONDANSETRON 4 MG DISINTEGRATING TABLET - CBC + DIFF - COMP METABOLIC PANEL - LIPASE BLD Lab work unremarkable. Currently today... Nausea and vomiting is improved d/t taking zofran around the clock. Without zofran, vomiting returns. Pt started with symptoms Sunday night. got nausea, chills, and abd cramping on Sunday. is back to work today and feeling better. Pt's symptoms are much more severe and lasting much longer. Eating and drinking as much as he can. Drinking ltos of Gatorade. Only have 2 pieces of toast yesterday. 2 hours of sleep a night since Sunday d/t body aches and abd discomfort. Body aches are his biggest symptom/concern currently. No fever/chills. COVID testing at work yesterday was negative. Did not get flu shot this year. Ended up leaving work yesterday d/t abd pain and nausea. Abd pain varies/intermittent -- painful to touch. Significant bloating and distention yesterday. Not as much bloating today. Reports intermittent cramping in lower abdomin. Last BM was this morning, small amount and soft. Cough -- productive with yellow thick sputum. Sinus drainage Hx of status post cholecystectomy. Hx of h.pylori in the past. Past medical history, appointments, medications, allergies reviewed. Previous Medical History PAST MEDICAL HISTORY Diagnosis Date Claudication ([facility]) 05/31/2017 GERD (gastroesophageal reflux disease) 04/24/2012 History of Helicobacter pylori infection 11/03/202110/2021 Migraines hasn't had since pinch nerve addressed in neck Mixed hyperlipidemia 10/11/2017 PAD (peripheral artery disease) ([facility]) 06/14/2017 PAD (peripheral artery disease) ([facility]) 06/14/2017 Seeing [facility] S/P bilateral stents/2017 and Lt common femoral to above the knee bypass 03/2021. Sebaceous cyst 02/14/2011 Smoker 05/31/2017 Started age 8 up 2 PPD, as of 09/2017 down to 2 cigs a day Type 2 diabetes mellitus without complication, without long-term current use of insulin ([facility]) 03/24/2020 Previous Surgical History PAST SURGICAL HISTORY Procedure Laterality Date ABDOMINAL SURGERY HX COLONOSCOPY 10/20/2021 tubular adenoma, repeat in 5 years COLONOSCOPY FLX DX W/COLLJ SPEC WHEN PFRMD 09/12/2010 Diverticulosis. [facility] inpt COLONOSCOPY FLX DX W/COLLJ SPEC WHEN PFRMD 05/01/2016 Colonoscopy, repeat 5 yrs EGD 10/20/2021 short-segment Hernandez's, per Dr. Eubanks repeat in 5 years ESOPHAGOGASTRODUODENOSCOPY TRANSORAL DIAGNOSTIC 09/12/2010 [facility] inpt/ H-pylori negative. Small hiatal hernia ESOPHAGOGASTRODUODENOSCOPY TRANSORAL DIAGNOSTIC 05/01/2016 EGD LAPAROSCOPIC CHOLECYSTECTOMY 04/14/2020 PAST SURGICAL HISTORY OF Bilateral 2018 LE stenting PAST SURGICAL HISTORY OF 04/01/2021 Left common femoral to above the knee bypass VASCULAR SURGERY PROCEDURE Family History FAMILY HISTORY Problem Relation Age of Onset Asthma Father Cancer Father lung Emphysema Father COPD Father Hypertension Father Breast Cancer Mother Hypertension Mother Breast Cancer Maternal Grandmother Cancer Brother colon, age 42 Patient Allergies ALLERGIES Allergen Reactions Chantix [Vareniclin* Vomiting Phenergan [Prometha* Swelling Pt states when taking in tablet form tongue and throat swelled. Pt reports he can take in in IV without reaction Pletal [Cilostazol] GI Upset Simvastatin Other: See Comments Bodyaches, flu-like sx Tramadol Rash, GI Upset Current Medications Current Outpatient Medications on File Prior to Visit Medication Sig ondansetron orally disintegrating (ZOFRAN ODT) 4 mg disintegrating tablet Take 1 tablet by mouth every 8 hours as needed. atorvastatin (LIPITOR) 20 mg tablet Take 1 tablet by mouth daily at bedtime. For cholesterol. clopidogrel (PLAVIX) 75 mg tablet Take 1 tablet by mouth once daily. metFORMIN ER (GLUCOPHAGE XR) 500 mg 24 hr tablet Take 1 tablet by mouth twice daily with meals. acetaminophen (TYLENOL) 325 mg tablet Take 2 tablets by mouth every 4 hours as needed for pain. blood sugar diagnostic (BLOOD GLUCOSE TEST) test strip Test blood sugar(s) 2 times daily. Dx: Type 2 DM - unControlled E11.9 Insulin: Yes insulin needles, DISPOSABLE, (PEN NEEDLE) 31 gauge x 5/16 Use one needle per dose. 4 per day. OMEPRAZOLE ORAL Take 20 mg by mouth once daily. aspirin, enteric coated (ADULT LOW DOSE ASPIRIN) 81 mg EC tablet Take 1 tablet by mouth once daily. No current facility-administered medications on file prior to visit. Social History Social History Tobacco Use Smoking status: Every Day Packs/day: 0.25 Years: 48.00 Pack years: 12.00 Types: Cigarettes Smokeless tobacco: Never Tobacco comments: 3 cigs per day Vaping Use Vaping Use: Never used Substance Use Topics Alcohol use: No Drug use: No REVIEW OF SYSTEMS: as above Reviewed relevant PMHx, PSHx, Social Hx, current medications and allergies. Review of Symptoms REVIEW OF SYSTEMS See HPI. EXAM: BP 110/60 (BP Site: Left Arm, BP Position: Sitting, BP Cuff Size: Regular Adult) Pulse 93 Temp 36.7 C (98 F) Resp 16 Wt 81 kg (178 lb 9.6 oz) SpO2 98% BMI 24.73 kg/m General Appearance: Well appearing, alert, in no acute distress, well-hydrated, well nourished.. Skin: Skin color, texture, turgor normal, no suspicious rashes or lesions. Head: Normocephalic, no masses, lesions, tenderness or abnormalities. Lungs: Lungs clear to auscultation. No wheezing, rhonchi, rales.. Heart: RRR without murmur, gallop, or rubs. No ectopy. Abdomen: Normal abdominal exam, Abdomen soft, non-tender. Bowel sounds normal. No masses, organomegaly, Negative CVA tenderness, Positive findings: distended, tenderness moderate, marked, and involuntary guarding RLQ and LLQ. Health Maintenance List SHINGRIX VACCINE(2 of 2) due on 04/14/2021 DILATED RETINAL EXAM due on 07/16/2021 INFLUENZA(1) due on 08/11/2022 COVID-19 VACCINE(4 - Booster for Pfizer series) due on 03/16/2023 HBA1C due on 09/13/2022 URINE ALBUMIN:CREATININE RATIO due on 03/16/2023 LDL CHOLESTEROL due on 03/16/2023 DIABETIC FOOT EXAM due on 03/16/2023 ANNUAL PCP TEAM CHRONIC DISEASE VISIT due on 03/16/2023 COLORECTAL CANCER SCREENING due on 10/20/2026 PROSTATE CANCER SCREENING DISCUSSION due on 03/16/2027 DTAP,TDAP,TD(3 - Td or Tdap) due on 10/12/2027 PNEUMOCOCCAL(3 - PPSV23 if available, else PCV20) due on 09/21/2028 DEPRESSION ASSESSMENT Completed HEPATITIS C SCREENING Completed HIV SCREENING Completed HEPATITIS B Discontinued ASSESSMENT/PLAN: 1. Lower abdominal pain - ICD9: 789.09, ICD10: R10.30 (primary diagnosis) Etiology unclear Differential Diagnosis includes Gastritis, IBD, Diverticulitis, and Appendicitis Anticipated viral infection but due to physical exam with moderate to severe tenderness and guarding with light palpitation in bilateral lower quadrants of abd, would like to rule out above differentials with CT of abd. Bentyl as needed with food for bloating and cramping. RTO if no improvement in 3-5 days. - Work up with CT Abdomen - [place] low residue diet - COVID WITH FLUA+B, ROUTINE - DICYCLOMINE 10 MG CAPSULE - CT ABD/PEL W IVCON - IV CONTRAST (RADIOLOGY PROCEDURE) - ENTERIC CONTRAST (RADIOLOGY PROCEDURE) - CREATININE BLD 2. Nausea and vomiting, unspecified vomiting type - ICD9: 787.01, ICD10: R11.2 Continue with zofran as needed. - COVID WITH FLUA+B, ROUTINE - CT ABD/PEL W IVCON - IV CONTRAST (RADIOLOGY PROCEDURE) - ENTERIC CONTRAST (RADIOLOGY PROCEDURE) - CREATININE BLD 3. Body aches - ICD9: 780.96, ICD10: R52 - COVID WITH FLUA+B, ROUTINE RTO as needed. Prescription instructions reviewed with patient as applicable. Potential red flag symptoms discussed with the patient. Reviewed appropriate action plan to take if red flag symptoms occur. Patient agreeable to treatment plan. Julisa Diane APRN.RUBBER PRESS OPERATOR [address] [place] [address] documented in this encounter [facility] 04-05-2022 Note HNO ID: [id number] Author: Ramona rCuz MA Service: ? Author Type: Integrated Logistics Operations Manager Type: Progress Notes Filed: 04/05/2022 9:37 PM Note Text: Scan on 04/05/2022 3:25 PM by External Provider: Antelmo Cruz MA [facility] 04-05-2022 History of Present illness Narrative Scan on 04/05/2022 3:25 PM by External Provider: Antelmo Cruz MA documented in this encounter [facility] 04-05-2022 Miscellaneous Notes Patient notified of results, verbalizes understanding of instructions. Pt declined at this time to schedule with PCP. Jessie Vernon LPN Please call and let patient know his labs do not appear different from previous labs. Would recommend a follow-up with PCP. documented in this encounter [facility] 04-05-2022 Note HNO ID: [id number] Author: Kisha Krishnamurthy PA-C Service: ? Author Type: Physician Neuroscience Specialist Type: Progress Notes Filed: 04/05/2022 12:16 PM Note Text: This note was created using Widemileriter. Subjective Martinez Barton is a 56 year old male. HPI Presents with vomiting, nausea and abdominal cramping over the past 3 days. He has had a bit of a scratchy throat when he wakes up in the morning. No runny nose or congestion. No cough. His just started with nausea and abdominal cramping today as well. He has had chills. No fever. No diarrhea. No blood in stool. He is status post a cholecystectomy. He did not vomit yesterday and thought he was feeling better but then today did not feel well at work. Hx of h pylori in the past. His abdominal discomfort is generalized. Review of Systems Constitutional: Positive for chills. Negative for fever. HENT: Positive for sore throat. Negative for congestion, ear pain and postnasal drip. Respiratory: Negative for cough. Cardiovascular: Negative. Gastrointestinal: Positive for abdominal pain, nausea and vomiting. Negative for blood in stool and diarrhea. Genitourinary: Negative. Musculoskeletal: Negative for back pain. All other systems reviewed and are negative. PAST MEDICAL HISTORY Diagnosis Date Claudication ([facility]) 05/31/2017 GERD (gastroesophageal reflux disease) 04/24/2012 History of Helicobacter pylori infection 11/03/202110/2021 Migraines hasn't had since pinch nerve addressed in neck Mixed hyperlipidemia 10/11/2017 PAD (peripheral artery disease) ([facility]) 06/14/2017 PAD (peripheral artery disease) ([facility]) 06/14/2017 Seeing [facility] S/P bilateral stents and Lt common femoral to above the knee bypass 03/2021. Sebaceous cyst 02/14/2011 Smoker 05/31/2017 Started age 8 up 2 PPD, as of 09/2017 down to 2 cigs a day Type 2 diabetes mellitus without complication, without long-term current use of insulin ([facility]) 03/24/2020 Current Outpatient Medications Medication Sig Dispense Refill atorvastatin (LIPITOR) 20 mg tablet Take 1 tablet by mouth daily at bedtime. For cholesterol. 90 tablet 1 clopidogrel (PLAVIX) 75 mg tablet Take 1 tablet by mouth once daily. 90 tablet 1 acetaminophen (TYLENOL) 325 mg tablet Take 2 tablets by mouth every 4 hours as needed for pain. 30 tablet 0 blood sugar diagnostic (BLOOD GLUCOSE TEST) test strip Test blood sugar(s) 2 times daily. Dx: Type 2 DM - unControlled E11.9 Insulin: Yes 100 Strip 11 insulin needles, DISPOSABLE, (PEN NEEDLE) 31 gauge x 5/16 Use one needle per dose. 4 per day. 150 Each 2 OMEPRAZOLE ORAL Take 20 mg by mouth once daily. aspirin, enteric coated (ADULT LOW DOSE ASPIRIN) 81 mg EC tablet Take 1 tablet by mouth once daily. ondansetron orally disintegrating (ZOFRAN ODT) 4 mg disintegrating tablet Take 1 tablet by mouth every 8 hours as needed. 12 tablet 0 metFORMIN ER (GLUCOPHAGE XR) 500 mg 24 hr tablet Take 1 tablet by mouth twice daily with meals. 180 tablet 1 No current facility-administered medications for this visit. PAST SURGICAL HISTORY Procedure Laterality Date ABDOMINAL SURGERY HX COLONOSCOPY 10/20/2021 tubular adenoma, repeat in 5 years COLONOSCOPY FLX DX W/COLLJ SPEC WHEN PFRMD 09/12/2010 Diverticulosis. [facility] inpt COLONOSCOPY FLX DX W/COLLJ SPEC WHEN PFRMD 05/01/2016 Colonoscopy, repeat 5 yrs EGD 10/20/2021 short-segment Hernandez's, per Dr. Eubanks repeat in 5 years ESOPHAGOGASTRODUODENOSCOPY TRANSORAL DIAGNOSTIC 09/12/2010 [facility] inpt/ H-pylori negative. Small hiatal hernia ESOPHAGOGASTRODUODENOSCOPY TRANSORAL DIAGNOSTIC 05/01/2016 EGD LAPAROSCOPIC CHOLECYSTECTOMY 04/14/2020 PAST SURGICAL HISTORY OF Bilateral 2018 LE stenting PAST SURGICAL HISTORY OF 04/01/2021 Left common femoral to above the knee bypass VASCULAR SURGERY PROCEDURE FAMILY HISTORY Problem Relation Age of Onset Asthma Father Cancer Father lung Emphysema Father COPD Father Hypertension Father Breast Cancer Mother Hypertension Mother Breast Cancer Maternal Grandmother Cancer Brother colon, age 42 Social History Tobacco Use Smoking status: Every Day Packs/day: 0.25 Years: 48.00 Pack years: 12.00 Types: Cigarettes Smokeless tobacco: Never Tobacco comments: 3 cigs per day Vaping Use Vaping Use: Never used Substance Use Topics Alcohol use: No Drug use: No Objective BP 118/82 Pulse 87 Temp 36.6 ?C (97.9 ?F) (Tympanic) Resp 18 Wt 81.7 kg (180 lb 3.2 oz) SpO2 96% BMI 24.95 kg/m? Physical Exam Vitals reviewed. Constitutional: Appearance: Normal appearance. HENT: Head: Normocephalic and atraumatic. Right Ear: Tympanic membrane, ear canal and external ear normal. Left Ear: Tympanic membrane, ear canal and external ear normal. Nose: Nose normal. Mouth/Throat: Mouth: Mucous membranes are moist. Pharynx: Oropharynx is clear. No oropharyngeal exudate or posterior oropharyngeal erythema. Cardiovascu (more content not included)... [facility] 04-05-2022 History of Present illness Narrative This note was created using Flattr. Subjective Martinez Barton is a 56 year old male. HPI Presents with vomiting, nausea and abdominal cramping over the past 3 days. He has had a bit of a scratchy throat when he wakes up in the morning. No runny nose or congestion. No cough. His just started with nausea and abdominal cramping today as well. He has had chills. No fever. No diarrhea. No blood in stool. He is status post a cholecystectomy. He did not vomit yesterday and thought he was feeling better but then today did not feel well at work. Hx of h pylori in the past. His abdominal discomfort is generalized. Review of Systems Constitutional: Positive for chills. Negative for fever. HENT: Positive for sore throat. Negative for congestion, ear pain and postnasal drip. Respiratory: Negative for cough. Cardiovascular: Negative. Gastrointestinal: Positive for abdominal pain, nausea and vomiting. Negative for blood in stool and diarrhea. Genitourinary: Negative. Musculoskeletal: Negative for back pain. All other systems reviewed and are negative. PAST MEDICAL HISTORY Diagnosis Date Claudication (HCC) 05/31/2017 GERD (gastroesophageal reflux disease) 04/24/2012 History of Helicobacter pylori infection 11/03/202110/2021 Migraines hasn't had since pinch nerve addressed in neck Mixed hyperlipidemia 10/11/2017 PAD (peripheral artery disease) ([facility]) 06/14/2017 PAD (peripheral artery disease) ([facility]) 06/14/2017 Seeing [facility] S/P bilateral stents and Lt common femoral to above the knee bypass 03/2021. Sebaceous cyst 02/14/2011 Smoker 05/31/2017 Started age 8 up 2 PPD, as of 09/2017 down to 2 cigs a day Type 2 diabetes mellitus without complication, without long-term current use of insulin ([facility]) 03/24/2020 Current Outpatient Medications Medication Sig Dispense Refill atorvastatin (LIPITOR) 20 mg tablet Take 1 tablet by mouth daily at bedtime. For cholesterol. 90 tablet 1 clopidogrel (PLAVIX) 75 mg tablet Take 1 tablet by mouth once daily. 90 tablet 1 acetaminophen (TYLENOL) 325 mg tablet Take 2 tablets by mouth every 4 hours as needed for pain. 30 tablet 0 blood sugar diagnostic (BLOOD GLUCOSE TEST) test strip Test blood sugar(s) 2 times daily. Dx: Type 2 DM - unControlled E11.9 Insulin: Yes 100 Strip 11 insulin needles, DISPOSABLE, (PEN NEEDLE) 31 gauge x 5/16 Use one needle per dose. 4 per day. 150 Each 2 OMEPRAZOLE ORAL Take 20 mg by mouth once daily. aspirin, enteric coated (ADULT LOW DOSE ASPIRIN) 81 mg EC tablet Take 1 tablet by mouth once daily. ondansetron orally disintegrating (ZOFRAN ODT) 4 mg disintegrating tablet Take 1 tablet by mouth every 8 hours as needed. 12 tablet 0 metFORMIN ER (GLUCOPHAGE XR) 500 mg 24 hr tablet Take 1 tablet by mouth twice daily with meals. 180 tablet 1 No current facility-administered medications for this visit. PAST SURGICAL HISTORY Procedure Laterality Date ABDOMINAL SURGERY HX COLONOSCOPY 10/20/2021 tubular adenoma, repeat in 5 years COLONOSCOPY FLX DX W/COLLJ SPEC WHEN PFRMD 09/12/2010 Diverticulosis. [facility] inpt COLONOSCOPY FLX DX W/COLLJ SPEC WHEN PFRMD 05/01/2016 Colonoscopy, repeat 5 yrs EGD 10/20/2021 short-segment Hernandez's, per Dr. Eubanks repeat in 5 years ESOPHAGOGASTRODUODENOSCOPY TRANSORAL DIAGNOSTIC 09/12/2010 [facility] inpt/ H-pylori negative. Small hiatal hernia ESOPHAGOGASTRODUODENOSCOPY TRANSORAL DIAGNOSTIC 05/01/2016 EGD LAPAROSCOPIC CHOLECYSTECTOMY 04/14/2020 PAST SURGICAL HISTORY OF Bilateral 2018 LE stenting PAST SURGICAL HISTORY OF 04/01/2021 Left common femoral to above the knee bypass VASCULAR SURGERY PROCEDURE FAMILY HISTORY Problem Relation Age of Onset Asthma Father Cancer Father lung Emphysema Father COPD Father Hypertension Father Breast Cancer Mother Hypertension Mother Breast Cancer Maternal Grandmother Cancer Brother colon, age 42 Social History Tobacco Use Smoking status: Every Day Packs/day: 0.25 Years: 48.00 Pack years: 12.00 Types: Cigarettes Smokeless tobacco: Never Tobacco comments: 3 cigs per day Vaping Use Vaping Use: Never used Substance Use Topics Alcohol use: No Drug use: No Objective BP 118/82 Pulse 87 Temp 36.6 C (97.9 F) (Tympanic) Resp 18 Wt 81.7 kg (180 lb 3.2 oz) SpO2 96% BMI 24.95 kg/m Physical Exam Vitals reviewed. Constitutional: Appearance: Normal appearance. HENT: Head: Normocephalic and atraumatic. Right Ear: Tympanic membrane, ear canal and external ear normal. Left Ear: Tympanic membrane, ear canal and external ear normal. Nose: Nose normal. Mouth/Throat: Mouth: Mucous membranes are moist. Pharynx: Oropharynx is clear. No oropharyngeal exudate or posterior oropharyngeal erythema. Cardiovascular: Rate and Rhythm: Normal rate and regular rhythm. Heart sounds: Normal heart sounds. Pulmonary: Effort: Pulmonary effort is normal. Breath sounds: Normal breath sounds. Abdominal: Comments: Patient has generalized abdominal tenderness everywhere I push on his abdomen. Soft and nondistended. No guarding. Bowel sounds active. Musculoskeletal: Cervical back: Neck supple. Skin: General: Skin is warm and dry. Neurological: Mental Status: He is alert. Assessment and Plan ASSESSMENT/PLAN: 1. Sore throat - ICD9: 462, ICD10: J02.9 (primary diagnosis) - Alere Strep Test neg, no culture pending - STREP A MOLECULAR (POC) 2. Nausea and vomiting, unspecified vomiting type - ICD9: 787.01, ICD10: R11.2 Patient abdomen today reveals generalized tenderness with no specific point tenderness. Bowel sounds are active. I will check CBC some, CMP and lipase. Given Zofran for nausea. His is starting to have similar symptoms today with nausea and abdominal cramping, likely is viral illness. Discussed with patient if his pain worsens or he develops fever or intractable vomiting, blood in vomit or stool needs to be seen in the emergency department. He understood and is agreeable with plan. Otherwise would recommend follow-up with PCP. - ONDANSETRON 4 MG DISINTEGRATING TABLET - CBC + DIFF - COMP METABOLIC PANEL - LIPASE BLD 3. Generalized abdominal pain - ICD9: 789.07, ICD10: R10.84 Kisha Krishnamurthy PA-C documented in this encounter [facility] 03-20-2022 Miscellaneous Notes Spoke with patient and gave results and instructions. Patient did indicate that he has been having sinus and cold sx. He will recheck in blood work in 1 month. Ramona Cruz MA Let patient know his A1c was good at 6.1%. His lipid panel was ok except his good cholesterol the HDL was low at 37 and goal is >40. Exercise can help raise this further. His Mg, B12, Urine labs, prostate lab, electrolytes, kidney functions and liver functions were all normal. His CBC showed an elevated white blood cell count and can be seen in infections like colds. See if having any URI symptoms. If not will want to repeat CBC in a month. documented in this encounter [facility] 03-16-[address] Patient contacted and scheduled for 2nd shingrix vaccine. Ramona Cruz MA Let patient know that after he left I realized I forgot to ask him if he wanted his second shingrix vaccine. If this is something he would like, could schedule with nurse visit. Emily Kay PA-C documented in this encounter [facility] 03-16-2022 Note HNO ID: [id number] Author: Emily Kay PA-C Service: ? Author Type: Physician Neuroscience Specialist Type: Progress Notes Filed: 03/16/2022 7:32 AM Note Text: Chief Complaint Patient presents with: Yearly Exam HPI Martinez Barton is a 56 year old male who presents here today for physical. Patient with hx of DM2, hyperlipidemia, PAD, GERD, Migraines, and those as below. Patient states his home FBG is averaging around 100. He denies any specific concerns today. Last 3 Encounter Wt Readings: Date: Wt: 03/16/2022 80 kg (176 lb 6.4 oz) 10/04/2021 82.6 kg (182 lb) 10/03/2021 82.6 kg (182 lb) Past medical history, appointments, medications, allergies reviewed. Previous Medical History PAST MEDICAL HISTORY Diagnosis Date Claudication (HCC) 05/31/2017 GERD (gastroesophageal reflux disease) 04/24/2012 History of Helicobacter pylori infection 11/03/202110/2021 Migraines hasn't had since pinch nerve addressed in neck Mixed hyperlipidemia 10/11/2017 PAD (peripheral artery disease) (HCC) 06/14/2017 PAD (peripheral artery disease) (HCC) 06/14/2017 Seeing [facility] S/P bilateral stents and Lt common femoral to above the knee bypass 03/2021. Sebaceous cyst 02/14/2011 Smoker 05/31/2017 Started age 8 up 2 PPD, as of 09/2017 down to 2 cigs a day Type 2 diabetes mellitus without complication, without long-term current use of insulin (HCC) 03/24/2020 Previous Surgical History PAST SURGICAL HISTORY Procedure Laterality Date ABDOMINAL SURGERY HX COLONOSCOPY 10/20/2021 tubular adenoma, repeat in 5 years COLONOSCOPY FLX DX W/COLLJ SPEC WHEN PFRMD 09/12/2010 Diverticulosis. [facility] inpt COLONOSCOPY FLX DX W/COLLJ SPEC WHEN PFRMD 05/01/2016 Colonoscopy, repeat 5 yrs EGD 10/20/2021 short-segment Hernandez's, per Dr. Eubanks repeat in 5 years ESOPHAGOGASTRODUODENOSCOPY TRANSORAL DIAGNOSTIC 09/12/2010 [facility] inpt/ H-pylori negative. Small hiatal hernia ESOPHAGOGASTRODUODENOSCOPY TRANSORAL DIAGNOSTIC 05/01/2016 EGD LAPAROSCOPIC CHOLECYSTECTOMY 04/14/2020 PAST SURGICAL HISTORY OF Bilateral 2018 LE stenting PAST SURGICAL HISTORY OF 04/01/2021 Left common femoral to above the knee bypass VASCULAR SURGERY PROCEDURE Family History FAMILY HISTORY Problem Relation Age of Onset Asthma Father Cancer Father lung Emphysema Father COPD Father Hypertension Father Breast Cancer Mother Hypertension Mother Breast Cancer Maternal Grandmother Cancer Brother colon, age 42 Patient Allergies ALLERGIES Allergen Reactions Chantix [Vareniclin* Vomiting Phenergan [Prometha* Swelling Pt states when taking in tablet form tongue and throat swelled. Pt reports he can take in in IV without reaction Pletal [Cilostazol] GI Upset Simvastatin Other: See Comments Bodyaches, flu-like sx Tramadol Rash, GI Upset Current Medications Current Outpatient Medications on File Prior to Visit Medication Sig atorvastatin (LIPITOR) 20 mg tablet Take 1 tablet by mouth daily at bedtime. For cholesterol. clopidogrel (PLAVIX) 75 mg tablet Take 1 tablet by mouth once daily. metFORMIN ER (GLUCOPHAGE XR) 500 mg 24 hr tablet Take 1 tablet by mouth twice daily with meals. acetaminophen (TYLENOL) 325 mg tablet Take 2 tablets by mouth every 4 hours as needed for pain. blood sugar diagnostic (BLOOD GLUCOSE TEST) test strip Test blood sugar(s) 2 times daily. Dx: Type 2 DM - unControlled E11.9 Insulin: Yes insulin needles, DISPOSABLE, (PEN NEEDLE) 31 gauge x 5/16 Use one needle per dose. 4 per day. OMEPRAZOLE ORAL Take 20 mg by mouth once daily. aspirin, enteric coated (ADULT LOW DOSE ASPIRIN) 81 mg EC tablet Take 1 tablet by mouth once daily. bismuth subsalicylate (PEPTO-BISMOL) 262 mg chew Take 1 tablet by mouth four times daily for 14 days. No current facility-administered medications on file prior to visit. Social History Social History Tobacco Use Smoking status: Every Day Packs/day: 0.50 Years: 48.00 Pack years: 24.00 Types: Cigarettes Smokeless tobacco: Never Tobacco comments: 3 cigs per day Vaping Use Vaping Use: Never used Substance Use Topics Alcohol use: No Drug use: No Review of Symptoms REVIEW OF SYSTEMS GENERAL: No weight loss, malaise or fevers HEENT: Negative for frequent or significant headaches, No changes in hearing or vision, no nose bleeds or other nasal problems NECK: Negative for lumps, goiter, pain and significant neck swelling RESPIRATORY: Negative for cough, hemoptysis, wheezing, COPD, dyspnea or shortness of breath CARDIOVASCULAR: Negative for chest pain, leg swelling, hypertension, CHF or palpitations GI: Negative for abdominal discomfort, blood in stools or black stools, change in bowel habit, heart burn, nausea, vomiting : No history of dysuria, frequency or incontinence MUSCULOSKELETAL: Negative for joint pain or swelling, back pain or muscle pain SKIN: Negative for lesions, rash, and itching (more content not included)... [facility] 03-16-2022 Instructions Emily Kay PA-C - 03/16/2022 7:12 AM EST Please stop to get your labs done today. Follow up in 6 months. documented in this encounter [facility] 03-16-2022 History of Present illness Narrative Chief Complaint Patient presents with: Yearly Exam HPI Martinez Barton is a 56 year old male who presents here today for physical. Patient with hx of DM2, hyperlipidemia, PAD, GERD, Migraines, and those as below. Patient states his home FBG is averaging around 100. He denies any specific concerns today. Last 3 Encounter Wt Readings: Date: Wt: 03/16/2022 80 kg (176 lb 6.4 oz) 10/04/2021 82.6 kg (182 lb) 10/03/2021 82.6 kg (182 lb) Past medical history, appointments, medications, allergies reviewed. Previous Medical History PAST MEDICAL HISTORY Diagnosis Date Claudication (HCC) 05/31/2017 GERD (gastroesophageal reflux disease) 04/24/2012 History of Helicobacter pylori infection 11/03/202110/2021 Migraines hasn't had since pinch nerve addressed in neck Mixed hyperlipidemia 10/11/2017 PAD (peripheral artery disease) (HCC) 06/14/2017 PAD (peripheral artery disease) ([facility]) 06/14/2017 Seeing [facility] S/P bilateral stents/2017 and Lt common femoral to above the knee bypass 03/2021. Sebaceous cyst 02/14/2011 Smoker 05/31/2017 Started age 8 up 2 PPD, as of 09/2017 down to 2 cigs a day Type 2 diabetes mellitus without complication, without long-term current use of insulin (HCC) 03/24/2020 Previous Surgical History PAST SURGICAL HISTORY Procedure Laterality Date ABDOMINAL SURGERY HX COLONOSCOPY 10/20/2021 tubular adenoma, repeat in 5 years COLONOSCOPY FLX DX W/COLLJ SPEC WHEN PFRMD 09/12/2010 Diverticulosis. [facility] inpt COLONOSCOPY FLX DX W/COLLJ SPEC WHEN PFRMD 05/01/2016 Colonoscopy, repeat 5 yrs EGD 10/20/2021 short-segment Hernandez's, per Dr. Eubanks repeat in 5 years ESOPHAGOGASTRODUODENOSCOPY TRANSORAL DIAGNOSTIC 09/12/2010 [facility] inpt/ H-pylori negative. Small hiatal hernia ESOPHAGOGASTRODUODENOSCOPY TRANSORAL DIAGNOSTIC 05/01/2016 EGD LAPAROSCOPIC CHOLECYSTECTOMY 04/14/2020 PAST SURGICAL HISTORY OF Bilateral 2018 LE stenting PAST SURGICAL HISTORY OF 04/01/2021 Left common femoral to above the knee bypass VASCULAR SURGERY PROCEDURE Family History FAMILY HISTORY Problem Relation Age of Onset Asthma Father Cancer Father lung Emphysema Father COPD Father Hypertension Father Breast Cancer Mother Hypertension Mother Breast Cancer Maternal Grandmother Cancer Brother colon, age 42 Patient Allergies ALLERGIES Allergen Reactions Chantix [Vareniclin* Vomiting Phenergan [Prometha* Swelling Pt states when taking in tablet form tongue and throat swelled. Pt reports he can take in in IV without reaction Pletal [Cilostazol] GI Upset Simvastatin Other: See Comments Bodyaches, flu-like sx Tramadol Rash, GI Upset Current Medications Current Outpatient Medications on File Prior to Visit Medication Sig atorvastatin (LIPITOR) 20 mg tablet Take 1 tablet by mouth daily at bedtime. For cholesterol. clopidogrel (PLAVIX) 75 mg tablet Take 1 tablet by mouth once daily. metFORMIN ER (GLUCOPHAGE XR) 500 mg 24 hr tablet Take 1 tablet by mouth twice daily with meals. acetaminophen (TYLENOL) 325 mg tablet Take 2 tablets by mouth every 4 hours as needed for pain. blood sugar diagnostic (BLOOD GLUCOSE TEST) test strip Test blood sugar(s) 2 times daily. Dx: Type 2 DM - unControlled E11.9 Insulin: Yes insulin needles, DISPOSABLE, (PEN NEEDLE) 31 gauge x 5/16 Use one needle per dose. 4 per day. OMEPRAZOLE ORAL Take 20 mg by mouth once daily. aspirin, enteric coated (ADULT LOW DOSE ASPIRIN) 81 mg EC tablet Take 1 tablet by mouth once daily. bismuth subsalicylate (PEPTO-BISMOL) 262 mg chew Take 1 tablet by mouth four times daily for 14 days. No current facility-administered medications on file prior to visit. Social History Social History Tobacco Use Smoking status: Every Day Packs/day: 0.50 Years: 48.00 Pack years: 24.00 Types: Cigarettes Smokeless tobacco: Never Tobacco comments: 3 cigs per day Vaping Use Vaping Use: Never used Substance Use Topics Alcohol use: No Drug use: No Review of Symptoms REVIEW OF SYSTEMS GENERAL: No weight loss, malaise or fevers HEENT: Negative for frequent or significant headaches, No changes in hearing or vision, no nose bleeds or other nasal problems NECK: Negative for lumps, goiter, pain and significant neck swelling RESPIRATORY: Negative for cough, hemoptysis, wheezing, COPD, dyspnea or shortness of breath CARDIOVASCULAR: Negative for chest pain, leg swelling, hypertension, CHF or palpitations GI: Negative for abdominal discomfort, blood in stools or black stools, change in bowel habit, heart burn, nausea, vomiting : No history of dysuria, frequency or incontinence MUSCULOSKELETAL: Negative for joint pain or swelling, back pain or muscle pain SKIN: Negative for lesions, rash, and itching PSYCH: Negative for sleep disturbance, mood disorder and recent psychosocial stressors HEMATOLOGY/LYMPHOLOGY: Negative for prolonged bleeding, bruising easily or swollen nodes ENDOCRINE: Negative for cold or heat intolerance, polyuria, polydipsia and goiter NEURO: No history of headaches, syncope, paralysis, seizures or tremors EXAM: BP 132/78 (BP Site: Left Arm, BP Position: Sitting, BP Cuff Size: Large Adult) Pulse 83 Resp 16 Ht 181 cm (5' 11.26 ) Wt 80 kg (176 lb 6.4 oz) SpO2 94% BMI 24.42 kg/m General Appearance: Well appearing, alert, in no acute distress, well-hydrated, well nourished.. Skin: Skin color, texture, turgor normal, no suspicious rashes or lesions on exposed skin. Head: Normocephalic, no masses, lesions, tenderness or abnormalities. Eyes: Anicteric sclera. Pupils are equally round and reactive to light. Extraocular movements are intact. . Ears: External ears normal, canals clear, TMs pearly bacon. Neck: Supple, no adenopathy; thyroid symmetric, normal size, no bruits. Lungs: Lungs clear to auscultation. No wheezing, rhonchi, rales.. Heart: RRR without murmur, gallop, or rubs. No ectopy. Abdomen: Normal abdominal exam, Abdomen soft, non-tender. Bowel sounds normal. No masses, organomegaly. Extremities: No deformities, edema, skin discoloration, clubbing or cyanosis. Good capillary refill. . Peripheral Pulses: Normal. Neurologic: Gait normal. Reflexes normal and symmetric. Sensation grossly intact.. Feet:Shoes and socks removed, No deformities, ulcers, calluses, normal distal pulses, sensitive to 10 gm monofilament, vibratory perception normal, and nails notable for Deformed, Hypertrophic, or Yellowish Health Maintenance List LUNG CANCER SCREENING Never done SHINGRIX VACCINE(2 of 2) due on 04/14/2021 DILATED RETINAL EXAM due on 07/16/2021 DEPRESSION ASSESSMENT Never done DIABETIC FOOT EXAM due on 03/16/2022 URINE ALBUMIN:CREATININE RATIO due on 03/23/2022 INFLUENZA(1) due on 08/11/2022 COVID-19 VACCINE(4 - Booster for Pfizer series) due on 03/16/2023 HBA1C due on 04/05/2022 LDL CHOLESTEROL due on 10/03/2022 ANNUAL PCP TEAM CHRONIC DISEASE VISIT due on 10/03/2022 PROSTATE CANCER SCREENING DISCUSSION due on 03/23/2026 COLORECTAL CANCER SCREENING due on 10/20/2026 DTAP,TDAP,TD(3 - Td or Tdap) due on 10/12/2027 PNEUMOCOCCAL(3 - PPSV23 if available, else PCV20) due on 09/21/2028 HEPATITIS C SCREENING Completed HIV SCREENING Completed HEPATITIS B Discontinued Data reviewed N/a ASSESSMENT/PLAN: 1. Well adult exam - ICD9: V70.0, ICD10: Z00.00 (primary diagnosis) - Counseled on healthy diet and regular exercise 2. Type 2 diabetes mellitus without complication, without long-term current use of insulin (HCC) - ICD9: 250.00, ICD10: E11.9 Controlled.- await labs - Continue current medications - Ophthalmology referral for eval/management of diabetic eye changes - BP goal of <130/80 - LDL goal of <100 - CONSULT TO OPHTHALMOLOGY - HGB A1C - COMP METABOLIC PANEL 3. Mixed hyperlipidemia - ICD9: 272.2, ICD10: E78.2 - to be determined upon return of lab results - Encouraged following a low carbohydrate, healthy oil intake diet. - Continue current therapy. - LIPID PANEL, NONFASTING 4. Gastroesophageal reflux disease, unspecified whether esophagitis present - ICD9: 530.81, ICD10: K21.9 - stable 5. PAD (peripheral artery disease) (HCC) - ICD9: 443.9, ICD10: I73.9 Continue current management. - LIPID PANEL, NONFASTING 6. Smoker - ICD9: 305.1, ICD10: F17.200 - Cessation encouraged. - Physiologic and physical aspects of tobacco addiction as well as strategies for quitting were discussed. - Counseling was given focusing on the harmful effects of this addiction especially given the patient's medical condition(s) which will be worsened because of the chemicals in tobacco. - COMP METABOLIC PANEL Patient to get his labs done today. Follow up in 6 months with labs prior. Emily Kay PA-C documented in this encounter [facility] 11-02-2021 Instructions Soraya Hartman PA-C - 11/02/2021 9:21 AM EDT -Prevpac for H. Pylori -In approximately 8 weeks (6 weeks after completion of prevpac), stop by lab to complete stool test to confirm H. Pylori medication. You should avoid taking any PPIs or stomach medications for 2 weeks prior to the stool test -Repeat EGD in 5 years for surveillance The following instructions are important for you related to your office visit today with the [facility]. INSTRUCTIONS FOLLOWING A POLYP FOUND AT COLONOSCOPY You were found to have an adenomatous colon polyp. I recommend you undergo repeat endoscopy in 5 years. If you note bleeding, change in bowel habits, or other suspicious colon related symptoms before that time, those symptoms should be evaluated as necessary. If you have any difficulties or concerns, you should contact our office immediately. INSTRUCTIONS FOR PEPTIC ULCER DISEASE/GASTRITIS - H PYLORI POSITIVE I discussed with you the findings of your upper endoscopy. Your upper endoscopy demonstrated signs of peptic ulcer disease or irritation. This can be seen as a range of issues from actual ulcers in the stomach or duodenum (first part of the small bowel) or irritation ranging from redness to more significant irritation with erosions of the stomach or duodenum. Your gastric biopsy demonstrated that your stomach has the H. Pylori bacteria. H. Pylori bacteria have been show to cause ulcers and gastritis. You will be given medications to eradicate that bacteria. The most common prescription is called the Prevpac. Prevpac (lansoprazole, clarithromycin, and amoxicillin) is used to treat Helicobacter pylori infections associated with ulcers. Each daily administration pack contains a single day's dose of lansoprazole, clarithromycin, and amoxicillin. Prevpac comes as an individual card containing a single day's dose of medications in blister pack form. There are morning and evening doses. If you are allergic to any of the medications, different combinations can be prescribed. These medications are usually given for 10-14 days. After that time, the antibiotics are stopped, but the proton pump inhibitor (PPI)... Prevacid, prilosec, nexium or the like, are continued. Peptic ulcer disease or gastritis is also effected by the following factors caused from a combination of too much acid production or too little protective mucus production in the stomach. Factors that increase acid production include smoking and stress. If you smoke, stopping smoking will often cure these issues without needing other medications. Factors that decrease the stomach's production of protective mucus include alcohol consumption, smoking, aspirin and other anti-inflammatory use. Over the counter medications including antiacids and acid reducing medications including H2 blockers (Zantac and the like) and proton pump inhibitors (prilosec, prevacid and the like) neutralize or prevent acid production. Prescription strength proton pump inhibitors (PPIs) may be necessary if your symptoms persist. Carafate may be added to PPI treatment in refractory cases. Avoiding smoking, alcohol and antiinflammatory medications are important in the successful treatment of peptic diseases. New or worsening symptoms such are epigastric pain, burning, difficulty swallowing or food sticking should be relayed to your physician. Feeling full early after eating, or black, tarry, foul smelling stools are also worrisome. If you have any difficulties or concerns, you should contact our office immediately. INSTRUCTIONS FOR BARRETTS ESOPHAGITIS I discussed with you the findings of your upper endoscopy. Your upper endoscopy demonstrated Hernandez's esophagitis Esophagitis may be a form of peptic irritation, with acid moving from the stomach to the esophagus (gastroesophageal reflux). Hernandez's changes are microscopic findings that have the lining of the esophagus look like the stomach lining. This finding of gastric metaplasia has been shown to be associated with an increased risk of developing esophageal cancer in the future. This is particularly worrisome if atypical cells (dysplasia) are found at biopsy. Esophagitis is related to many factors - acid production, obesity, foods, smoking and alcohol. Factors that increase acid production include smoking and stress. If you smoke, stopping smoking will often cure these issues without needing other medications. Prescription strength proton pump inhibitors (PPIs) are necessary for treatment of Hernandez's esophagitis. Treatment with PPI are usually continued indefinitely, even if your symptoms improve or if you never had GERD symptoms. Avoiding smoking, alcohol and antiinflammatory medications are important in the successful treatment of reflux esophagitis and peptic diseases. Other factors that contribute to GERD and esophagitis are being overweight, eating large meals before laying down and certain foods. Weight loss will help improve many GERD complaints. Remaining upright after eating large meals and having a small supper will also help symptoms. Avoiding food that contribute to reflux - chocolate, caffeine, cheddar cheese may also help. Follow up upper endoscopy should be performed regularly to assure healing of the esophagus and to make sure that worsening Hernandez's esophagitis is treated appropriately. New or worsening symptoms such are epigastric pain, burning, difficulty swallowing or food sticking should be relayed to your physician. Feeling full early after eating, or black, tarry, foul smelling stools are also worrisome. If you have any difficulties or concerns, you should contact our office immediately. If you note any additional difficulties, questions, or concerns, you should contact our office immediately @ [phone] and ask to be transferred to the General Surgery department. documented in this encounter [facility] 11-02-2021 History of Present illness Narrative FOLLOW UP VISIT - ENDOSCOPY NAME: Martinez Madison [facility] NO.: [id number] DATE OF SERVICE: 11/02/2021 : 1965 REFERRING PHYSICIAN: Mateo Denise MD Martinez is a patient I am following for high-risk screening colonoscopy due to family history of colon cancer, and need for surveillance EGD for Hernandez's esophagus, as well a previous history of H. Pylori gastritis. Dr. Eubanks performed upper and lower endoscopy on 10/20/21. The patient was found to have esophageal mucosal changes consistent with short-segment Hernandez's, as well as gastritis. Repeat EGD was recommended in 5 years by surgeon. Colonoscopy showed a small descending colon polyp which was removed. Non-bleeding internal hemorrhoids were also noted. Pathology demonstrated: FINAL DIAGNOSIS A. Stomach, antrum, biopsy: - Gastric oxyntic mucosa with chronic active gastritis. - Microorganisms morphologically consistent with H. Pylori identified on H&E sections. B. Esophagus, distal, biopsy: - Hernandez's esophagus, negative for dysplasia. C. Colon, descending, polyp, biopsy: - Fragments of tubular adenoma. The patient notes no complaints since the procedure. VITALS: Blood pressure 122/78, pulse 76, temperature 36.4 C (97.6 F), SpO2 96 %. General: patient is alert, cooperative, pleasant and in no acute distress On examination, the abdomen is benign. Assessment IMPRESSION: H. Pylori gastritis, short-segment Hernandez's without dysplasia, adenomatous colon polyp PLAN: The operative findings and pathology report were reviewed with the patient, and the patient has had the opportunity to ask questions and have questions answered. -Complete all dose of prevpac as instructed. Reviewed common side effects of the medications -Discussed that omeprazole 20 mg BID will temporarily replace his normal omeprazole dose -Follow up in 8 weeks for stool testing to confirm eradication of H. Pylori infection. No PPIs or other stomach medications 2 weeks prior If the patient notes any problems or changes in bowel function, the patient should contact me immediately. Otherwise I recommend follow up EGD and colonoscopy in 5 years. HM updated and recall letter generated. 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 Soraya Hartman PA-C documented in this encounter [facility] 10-20-2021 Nurse Note Pt still very sleepy. at bedside. Tolerating snack and drink well. Jessie Rowland RN Passing gas rectally. Jessie Rowland RN Pt received in PACU. Pt extremely drowsy, but arouses slightly. Appears comfortable. Abd soft and non distended. Jessie Rowland RN documented in this encounter [facility] 10-20-2021 History and physical note Images from the original note were not included. HISTORY AND PHYSICAL Martinez Madison Steven 1965 REFERRING PHYSICIAN: Mateo Denise MD CHIEF COMPLAINT: Consult (colonoscopy) HPI: The patient is a 56 year old male referred for endoscopy. Martinez notes no colon complaints. Patient denies any change in bowel habits, weight changes, blood in stools, black tarry stools or abdominal pain. NOTES family history of colon issues-brother in his 40s. The patient notes no upper GI complaints. Martinez has undergone prior endoscopy. Most recent colonoscopy 05/01/[address] Branham under conscious sedation. Repeat colonoscopy was recommended in 5 years. He also had upper endoscopy at same setting. Patient was noted to have H. Pylori gastritis as well as Hernandez's esophagus on biopsies at that time: CONVERTED FINAL DIAGNOSIS 1. Stomach, antrum, biopsy (A) - Chronic active gastritis with Helicobacter pylori 2. Esophagus, distal, biopsy (B) - Squamous esophageal epithelium with no diagnostic alteration; no intraepithelial eosinophils identified - Detached fragment of gastric-type mucosa with chronic gastritis and Helicobacter pylori 3. Esophagus, mid, biopsy (C) - Unremarkable squamous esophageal epithelium and inflamed cardia-type gastric mucosa with extensive intestinal metaplasia, consistent with Hernandez's esophagus, negative for dysplasia - No intraepithelial eosinophils identified 4. Colon, random, biopsy (D) - Colonic mucosa with no diagnostic alteration - No histologic features of lymphocytic or collagenous colitis EDK/plj 05/02/2016 PAST MEDICAL HISTORY PAST MEDICAL HISTORY Diagnosis Date Claudication ([facility]) 05/31/2017 GERD (gastroesophageal reflux disease) 04/24/2012 Migraines hasn't had since pinch nerve addressed in neck Mixed hyperlipidemia 10/11/2017 PAD (peripheral artery disease) ([facility]) 06/14/2017 PAD (peripheral artery disease) ([facility]) 06/14/2017 Seeing [facility] S/P bilateral stents/2017 and Lt common femoral to above the knee bypass 03/2021. Sebaceous cyst 02/14/2011 Smoker 05/31/2017 Started age 8 up 2 PPD, as of 09/2017 down to 2 cigs a day Type 2 diabetes mellitus without complication, without long-term current use of insulin ([facility]) 03/24/2020 PAST SURGICAL HISTORY PAST SURGICAL HISTORY Procedure Laterality Date COLONOSCOPY FLX DX W/COLLJ SPEC WHEN PFRMD 09/12/2010 Diverticulosis. [facility] inpt COLONOSCOPY FLX DX W/COLLJ SPEC WHEN PFRMD 05/01/2016 Colonoscopy, repeat 5 yrs ESOPHAGOGASTRODUODENOSCOPY TRANSORAL DIAGNOSTIC 09/12/2010 [facility] inpt/ H-pylori negative. Small hiatal hernia ESOPHAGOGASTRODUODENOSCOPY TRANSORAL DIAGNOSTIC 05/01/2016 EGD LAPAROSCOPIC CHOLECYSTECTOMY 04/14/2020 PAST SURGICAL HISTORY OF Bilateral 2018 LE stenting PAST SURGICAL HISTORY OF 04/01/2021 Left common femoral to above the knee bypass CURRENT MEDICATIONS Current Outpatient Medications Medication Sig atorvastatin (LIPITOR) 20 mg tablet Take 1 tablet by mouth daily at bedtime. For cholesterol. clopidogrel (PLAVIX) 75 mg tablet Take 1 tablet by mouth once daily. metFORMIN ER (GLUCOPHAGE XR) 500 mg 24 hr tablet Take 1 tablet by mouth twice daily with meals. acetaminophen (TYLENOL) 325 mg tablet Take 2 tablets by mouth every 4 hours as needed for pain. blood sugar diagnostic (BLOOD GLUCOSE TEST) test strip Test blood sugar(s) 2 times daily. Dx: Type 2 DM - unControlled E11.9 Insulin: Yes insulin needles, DISPOSABLE, (PEN NEEDLE) 31 gauge x 5/16 Use one needle per dose. 4 per day. OMEPRAZOLE ORAL Take 20 mg by mouth once daily. aspirin, enteric coated (ADULT LOW DOSE ASPIRIN) 81 mg EC tablet Take 1 tablet by mouth once daily. No current facility-administered medications for this visit. ALLERGIES: Chantix [Varenicline], Phenergan [Promethazine Hcl], Pletal [Cilostazol], Simvastatin, and Tramadol PERSONAL HISTORY: SOCIAL HISTORY Social History Tobacco Use Smoking status: Every Day Packs/day: 0.50 Years: 48.00 Pack years: 24.00 Types: Cigarettes Smokeless tobacco: Never Vaping Use Vaping Use: Never used Substance Use Topics Alcohol use: No Drug use: No FAMILY HISTORY: FAMILY HISTORY FAMILY HISTORY Problem Relation Age of Onset Asthma Father Cancer Father lung Emphysema Father COPD Father Hypertension Father Breast Cancer Mother Hypertension Mother Breast Cancer Maternal Grandmother Cancer Brother colon, age 42 REVIEW OF SYMPTOMS: The review of systems data was entered by the nurse and reviewed by ma Nursing Notes: Bree Drummond LPN 10/04/2021 9:27 AM Signed REVIEW OF SYSTEMS: General: The patient denies fatigue, denies weight loss, denies weight gain, denies feeling hot, and denies feelings of cold. Eyes: The patient denies glaucoma, denies eye injury/surgery, does not wear glasses or contacts. Ear/Nose/Throat: The patient denies allergies, denies hayfever, denies ear infections, and denies bloody noses. Cardiovascular: The patient denies chest pain, denies heart disease, denies high blood pressure,denies cardiac stent, denies prior heart attack, denies irregular heart beat, denies high cholesterol, denies poor circulation, denies heart failure, other cardiac issues, denies claudication, denies cold feet, denies peripheral arterial stent. Respiratory: The patient denies tuberculosis, denies pneumonia, denies frequent cough, denies pulmonary embolism, denies shortness of breath, and denies coughing up blood. Gastrointestinal: The patient denies difficulty swallowing, notes acid reflux, denies ulcers, denies vomiting, denies jaundice/hepatitis, denies gallbladder problems, denies black or tarry stools, denies hemorrhoids, denies bleeding from rectum, denies diverticulitis, denies constipation, denies diarrhea, denies loss of stool control, and denies hernias. Kidney/Bladder: The patient denies kidney stones, denies urine infections, and denies bloody urine. Skin: The patient denies a history of skin cancer, denies bleeding/changing moles, and denies a history of skin rash. Neurologic: The patient denies a history of epilepsy/convulsions, denies headaches, denies head/spinal injuries, and denies stroke/TIA. Psychiatric: The patient denies psychiatric medications, denies depression, and denies voices, denies substance abuse. Endocrine: The patient denies thyroid disorders, notes diabetes, and denies hormonal problems. Hematologic: The patient denies a history of bruising, denies bleeding, and denies anemia, denies blood clots. Infections: The patient denies a history of measles and mumps, denies rheumatic fever, and denies sexually transmitted diseases. Musculoskeletal: The patient denies back pain/injury, denies back problems, denies sciatica, denies knee/foot trouble, denies arthritis, or denies gout. When was patient's last Mammogram screening? N/A Last Colonoscopy: 2017 Bree Drummond LPN I have confirmed and edited as necessary, the PFSH and ROS obtained by others. Soraya Hartman PA-C PHYSICAL EXAMINATION: General: The patient is 56 year old male, well nourished, well hydrated in no acute distress. The patient is oriented to time, place, and person. VITALS: Blood pressure 138/82, pulse 82, temperature 36.1 C (96.9 F), height 180.3 cm (5' 11 ), weight 82.6 kg (182 lb), SpO2 99 %. Body mass index is 25.38 kg/m . HEENT: Normal cephalic, ataumatic, pupils are equally round, sclera are anicteric, mucous membranes are moist, oropharynx is clear. Neck has no masses, asymmetry or lymphadenopathy. Respiratory: Clear to auscultation and percussion. Normal respiratory excursion and pattern. Cardiac: Examination is regular rate and rhythm. Normal S1/S2 Abdominal exam: Soft, nontender, with no palpable masses. No hepatosplenomegaly. No palpable hernias. Extremities: no clubbing, cyanosis or edema. No adenopathy. LABORATORY VALUES: As Noted RADIOLOGIC STUDIES: As Noted Assessment IMPRESSION: family history of colon cancer, need for surveillance colonoscopy. History of Hernandez's esophagus-recommend EGD in addition to colonoscopy PLAN: I have reviewed my findings with the surgeon. Will plan for upper and lower endoscopy. We discussed the risks and benefits of the planned endoscopy. I have informed the patient that complications can occur including failure to complete the endoscopy and perforation. The patient had the opportunity to ask questions concerning the planned endoscopy. My staff has also explained the procedure to the patient in understandable terms and has given the patient printed material concerning the procedure. The patient freely consents to surgery. The patient was offered a surgery/procedure at a [facility] facility. I have counseled the patient regarding the risk of exposure to and/or potential harm posed by the COVID-19 virus with having a surgery/procedure at this time versus the risk of delaying the surgery/procedure. It is not possible to know either the risk of delaying the surgery or procedure or chance of getting an infection with perfect accuracy, but a joint decision was made between the patient and myself to proceed at this time with endoscopy. 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 Denise for an opinion regarding screening colonoscopy. My final recommendations will be communicated back to the requesting physician by way of shared Medical record or letter to requesting physician via US mail. Soraya Hartman PA-C UPDATED HISTORY AND PHYSICAL EXAMINATION SERVICE DATE: 10/20/2021 SERVICE TIME: 7:59 AM PHYSICAL EXAM MUST BE COMPLETED ON ADMISSION The History and Physical (completed in the past 30 days) has been reviewed and the patient has been examined. The contents accurately reflect the patient's condition with the following additions or revisions since the H&P was completed. Examination indicates no changes. This H&P can be found in the attached. SIGNATURE: Heber Eubanks III, MD PATIENT NAME: Martinez Barton DATE: October 20, 2021 TIME: 7:59 AM documented in this encounter [facility] 10-04-2021 History of Present illness Narrative HISTORY AND PHYSICAL Martinez Barton 1965 REFERRING PHYSICIAN: Mateo Denise MD CHIEF COMPLAINT: Consult (colonoscopy) HPI: The patient is a 56 year old male referred for endoscopy. Martinez notes no colon complaints. Patient denies any change in bowel habits, weight changes, blood in stools, black tarry stools or abdominal pain. NOTES family history of colon issues-brother in his 40s. The patient notes no upper GI complaints. Martinez has undergone prior endoscopy. Most recent colonoscopy 05/01/[address] Branham under conscious sedation. Repeat colonoscopy was recommended in 5 years. He also had upper endoscopy at same setting. Patient was noted to have H. Pylori gastritis as well as Hernandez's esophagus on biopsies at that time: CONVERTED FINAL DIAGNOSIS 1. Stomach, antrum, biopsy (A) - Chronic active gastritis with Helicobacter pylori 2. Esophagus, distal, biopsy (B) - Squamous esophageal epithelium with no diagnostic alteration; no intraepithelial eosinophils identified - Detached fragment of gastric-type mucosa with chronic gastritis and Helicobacter pylori 3. Esophagus, mid, biopsy (C) - Unremarkable squamous esophageal epithelium and inflamed cardia-type gastric mucosa with extensive intestinal metaplasia, consistent with Hernandez's esophagus, negative for dysplasia - No intraepithelial eosinophils identified 4. Colon, random, biopsy (D) - Colonic mucosa with no diagnostic alteration - No histologic features of lymphocytic or collagenous colitis EDK/plj 05/02/2016 PAST MEDICAL HISTORY Diagnosis Date Claudication (HCC) 05/31/2017 GERD (gastroesophageal reflux disease) 04/24/2012 Migraines hasn't had since pinch nerve addressed in neck Mixed hyperlipidemia 10/11/2017 PAD (peripheral artery disease) (HCC) 06/14/2017 PAD (peripheral artery disease) (HCC) 06/14/2017 Seeing [facility] S/P bilateral stents/2017 and Lt common femoral to above the knee bypass 03/2021. Sebaceous cyst 02/14/2011 Smoker 05/31/2017 Started age 8 up 2 PPD, as of 09/2017 down to 2 cigs a day Type 2 diabetes mellitus without complication, without long-term current use of insulin (HCC) 03/24/2020 PAST SURGICAL HISTORY Procedure Laterality Date COLONOSCOPY FLX DX W/COLLJ SPEC WHEN PFRMD 09/12/2010 Diverticulosis. [facility] inpt COLONOSCOPY FLX DX W/COLLJ SPEC WHEN PFRMD 05/01/2016 Colonoscopy, repeat 5 yrs ESOPHAGOGASTRODUODENOSCOPY TRANSORAL DIAGNOSTIC 09/12/2010 [facility] inpt/ H-pylori negative. Small hiatal hernia ESOPHAGOGASTRODUODENOSCOPY TRANSORAL DIAGNOSTIC 05/01/2016 EGD LAPAROSCOPIC CHOLECYSTECTOMY 04/14/2020 PAST SURGICAL HISTORY OF Bilateral 2018 LE stenting PAST SURGICAL HISTORY OF 04/01/2021 Left common femoral to above the knee bypass Current Outpatient Medications Medication Sig atorvastatin (LIPITOR) 20 mg tablet Take 1 tablet by mouth daily at bedtime. For cholesterol. clopidogrel (PLAVIX) 75 mg tablet Take 1 tablet by mouth once daily. metFORMIN ER (GLUCOPHAGE XR) 500 mg 24 hr tablet Take 1 tablet by mouth twice daily with meals. acetaminophen (TYLENOL) 325 mg tablet Take 2 tablets by mouth every 4 hours as needed for pain. blood sugar diagnostic (BLOOD GLUCOSE TEST) test strip Test blood sugar(s) 2 times daily. Dx: Type 2 DM - unControlled E11.9 Insulin: Yes insulin needles, DISPOSABLE, (PEN NEEDLE) 31 gauge x 5/16 Use one needle per dose. 4 per day. OMEPRAZOLE ORAL Take 20 mg by mouth once daily. aspirin, enteric coated (ADULT LOW DOSE ASPIRIN) 81 mg EC tablet Take 1 tablet by mouth once daily. No current facility-administered medications for this visit. ALLERGIES: Chantix [Varenicline], Phenergan [Promethazine Hcl], Pletal [Cilostazol], Simvastatin, and Tramadol PERSONAL HISTORY: Social History Tobacco Use Smoking status: Every Day Packs/day: 0.50 Years: 48.00 Pack years: 24.00 Types: Cigarettes Smokeless tobacco: Never Vaping Use Vaping Use: Never used Substance Use Topics Alcohol use: No Drug use: No FAMILY HISTORY: FAMILY HISTORY Problem Relation Age of Onset Asthma Father Cancer Father lung Emphysema Father COPD Father Hypertension Father Breast Cancer Mother Hypertension Mother Breast Cancer Maternal Grandmother Cancer Brother colon, age 42 REVIEW OF SYMPTOMS: The review of systems data was entered by the nurse and reviewed by me Nursing Notes: Bree DrummondSUAD 10/04/2021 9:27 AM Signed REVIEW OF SYSTEMS: General: The patient denies fatigue, denies weight loss, denies weight gain, denies feeling hot, and denies feelings of cold. Eyes: The patient denies glaucoma, denies eye injury/surgery, does not wear glasses or contacts. Ear/Nose/Throat: The patient denies allergies, denies hayfever, denies ear infections, and denies bloody noses. Cardiovascular: The patient denies chest pain, denies heart disease, denies high blood pressure,denies cardiac stent, denies prior heart attack, denies irregular heart beat, denies high cholesterol, denies poor circulation, denies heart failure, other cardiac issues, denies claudication, denies cold feet, denies peripheral arterial stent. Respiratory: The patient denies tuberculosis, denies pneumonia, denies frequent cough, denies pulmonary embolism, denies shortness of breath, and denies coughing up blood. Gastrointestinal: The patient denies difficulty swallowing, notes acid reflux, denies ulcers, denies vomiting, denies jaundice/hepatitis, denies gallbladder problems, denies black or tarry stools, denies hemorrhoids, denies bleeding from rectum, denies diverticulitis, denies constipation, denies diarrhea, denies loss of stool control, and denies hernias. Kidney/Bladder: The patient denies kidney stones, denies urine infections, and denies bloody urine. Skin: The patient denies a history of skin cancer, denies bleeding/changing moles, and denies a history of skin rash. Neurologic: The patient denies a history of epilepsy/convulsions, denies headaches, denies head/spinal injuries, and denies stroke/TIA. Psychiatric: The patient denies psychiatric medications, denies depression, and denies voices, denies substance abuse. Endocrine: The patient denies thyroid disorders, notes diabetes, and denies hormonal problems. Hematologic: The patient denies a history of bruising, denies bleeding, and denies anemia, denies blood clots. Infections: The patient denies a history of measles and mumps, denies rheumatic fever, and denies sexually transmitted diseases. Musculoskeletal: The patient denies back pain/injury, denies back problems, denies sciatica, denies knee/foot trouble, denies arthritis, or denies gout. When was patient's last Mammogram screening? N/A Last Colonoscopy: 2017 Bree Drummond LPN I have confirmed and edited as necessary, the PFSH and ROS obtained by others. Soraya Hartman PA-C PHYSICAL EXAMINATION: General: The patient is 56 year old male, well nourished, well hydrated in no acute distress. The patient is oriented to time, place, and person. VITALS: Blood pressure 138/82, pulse 82, temperature 36.1 C (96.9 F), height 180.3 cm (5' 11 ), weight 82.6 kg (182 lb), SpO2 99 %. Body mass index is 25.38 kg/m . HEENT: Normal cephalic, ataumatic, pupils are equally round, sclera are anicteric, mucous membranes are moist, oropharynx is clear. Neck has no masses, asymmetry or lymphadenopathy. Respiratory: Clear to auscultation and percussion. Normal respiratory excursion and pattern. Cardiac: Examination is regular rate and rhythm. Normal S1/S2 Abdominal exam: Soft, nontender, with no palpable masses. No hepatosplenomegaly. No palpable hernias. Extremities: no clubbing, cyanosis or edema. No adenopathy. LABORATORY VALUES: As Noted RADIOLOGIC STUDIES: As Noted Assessment IMPRESSION: family history of colon cancer, need for surveillance colonoscopy. History of Hernandez's esophagus-recommend EGD in addition to colonoscopy PLAN: I have reviewed my findings with the surgeon. Will plan for upper and lower endoscopy. We discussed the risks and benefits of the planned endoscopy. I have informed the patient that complications can occur including failure to complete the endoscopy and perforation. The patient had the opportunity to ask questions concerning the planned endoscopy. My staff has also explained the procedure to the patient in understandable terms and has given the patient printed material concerning the procedure. The patient freely consents to surgery. The patient was offered a surgery/procedure at a [facility] facility. I have counseled the patient regarding the risk of exposure to and/or potential harm posed by the COVID-19 virus with having a surgery/procedure at this time versus the risk of delaying the surgery/procedure. It is not possible to know either the risk of delaying the surgery or procedure or chance of getting an infection with perfect accuracy, but a joint decision was made between the patient and myself to proceed at this time with endoscopy. 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 Denise for an opinion regarding screening colonoscopy. My final recommendations will be communicated back to the requesting physician by way of shared Medical record or letter to requesting physician via US mail. Soraya Hartman PA-C documented in this encounter [facility] 10-04-2021 Nurse Note REVIEW OF SYSTEMS: General: The patient denies fatigue, denies weight loss, denies weight gain, denies feeling hot, and denies feelings of cold. Eyes: The patient denies glaucoma, denies eye injury/surgery, does not wear glasses or contacts. Ear/Nose/Throat: The patient denies allergies, denies hayfever, denies ear infections, and denies bloody noses. Cardiovascular: The patient denies chest pain, denies heart disease, denies high blood pressure,denies cardiac stent, denies prior heart attack, denies irregular heart beat, denies high cholesterol, denies poor circulation, denies heart failure, other cardiac issues, denies claudication, denies cold feet, denies peripheral arterial stent. Respiratory: The patient denies tuberculosis, denies pneumonia, denies frequent cough, denies pulmonary embolism, denies shortness of breath, and denies coughing up blood. Gastrointestinal: The patient denies difficulty swallowing, notes acid reflux, denies ulcers, denies vomiting, denies jaundice/hepatitis, denies gallbladder problems, denies black or tarry stools, denies hemorrhoids, denies bleeding from rectum, denies diverticulitis, denies constipation, denies diarrhea, denies loss of stool control, and denies hernias. Kidney/Bladder: The patient denies kidney stones, denies urine infections, and denies bloody urine. Skin: The patient denies a history of skin cancer, denies bleeding/changing moles, and denies a history of skin rash. Neurologic: The patient denies a history of epilepsy/convulsions, denies headaches, denies head/spinal injuries, and denies stroke/TIA. Psychiatric: The patient denies psychiatric medications, denies depression, and denies voices, denies substance abuse. Endocrine: The patient denies thyroid disorders, notes diabetes, and denies hormonal problems. Hematologic: The patient denies a history of bruising, denies bleeding, and denies anemia, denies blood clots. Infections: The patient denies a history of measles and mumps, denies rheumatic fever, and denies sexually transmitted diseases. Musculoskeletal: The patient denies back pain/injury, denies back problems, denies sciatica, denies knee/foot trouble, denies arthritis, or denies gout. When was patient's last Mammogram screening? N/A Last Colonoscopy: 2017 Bree Drummond LPN documented in this encounter [facility] 10-04-2021 Miscellaneous Notes Patient was notified Tsering Mahoney Ma Let patient know UA, lipid panel, Liver functions and A1c were all ok. documented in this encounter [facility] 10-03-2021 Instructions Mateo Denise MD - 10/03/2021 10:14 AM EDT Please get labs and urine test done on or after 03/24/2022 prior to your next visit. documented in this encounter [facility] 10-03-2021 History of Present illness Narrative Chief Complaint Patient presents with: F/U 6 Month HPI Martinez Barton is a 56 year old male who presents here today for Chronic Medical Conditions/6 month. Patient with hx of Hyperlipidemia, Migraines, GERD, PAD (was seeing Vascular), DM2 smoker as well as those reviewed and addresed below and in ROS. Patient did have stenting to both LE arteries in the past and had to have left common femoral to above the knee bypass 04/01/2021 and has not had any claudication since then. Continues to smoke but down to 2 a day or none at all. Past medical history, appointments, medications, allergies reviewed. Previous Medical History PAST MEDICAL HISTORY Diagnosis Date Claudication (HCC) 05/31/2017 GERD (gastroesophageal reflux disease) 04/24/2012 Migraines hasn't had since pinch nerve addressed in neck Mixed hyperlipidemia 10/11/2017 PAD (peripheral artery disease) ([facility]) 06/14/2017 Sebaceous cyst 02/14/2011 Smoker 05/31/2017 Started age 8 up 2 PPD, as of 09/2017 down to 2 cigs a day Type 2 diabetes mellitus without complication, without long-term current use of insulin ([facility]) 03/24/2020 Previous Surgical History PAST SURGICAL HISTORY Procedure Laterality Date COLONOSCOPY FLX DX W/COLLJ SPEC WHEN PFRMD 09/12/2010 Diverticulosis. [facility] inpt COLONOSCOPY FLX DX W/COLLJ SPEC WHEN PFRMD 05/01/2016 Colonoscopy, repeat 5 yrs ESOPHAGOGASTRODUODENOSCOPY TRANSORAL DIAGNOSTIC 09/12/2010 [facility] inpt/ H-pylori negative. Small hiatal hernia ESOPHAGOGASTRODUODENOSCOPY TRANSORAL DIAGNOSTIC 05/01/2016 EGD LAPAROSCOPIC CHOLECYSTECTOMY 04/14/2020 PAST SURGICAL HISTORY OF Bilateral LE stenting Family History FAMILY HISTORY Problem Relation Age of Onset Asthma Father Cancer Father lung Emphysema Father COPD Father Hypertension Father Breast Cancer Mother Hypertension Mother Breast Cancer Maternal Grandmother Cancer Brother colon, age 42 Patient Allergies ALLERGIES Allergen Reactions Chantix [Vareniclin* Vomiting Phenergan [Prometha* Swelling Pt states when taking in tablet form tongue and throat swelled. Pt reports he can take in in IV without reaction Pletal [Cilostazol] GI Upset Simvastatin Other: See Comments Bodyaches, flu-like sx Tramadol Rash, GI Upset Current Medications Current Outpatient Medications on File Prior to Visit Medication Sig oxyCODONE IR (ROXICODONE) 5 mg immediate release tablet Take 1 tablet by mouth every 6 hours as needed for pain. (Patient not taking: Reported on 05/05/2021) acetaminophen (TYLENOL) 325 mg tablet Take 2 tablets by mouth every 4 hours as needed for pain. atorvastatin (LIPITOR) 20 mg tablet Take 1 tablet by mouth daily at bedtime. For cholesterol. clopidogrel (PLAVIX) 75 mg tablet Take 1 tablet by mouth once daily. metFORMIN ER (GLUCOPHAGE XR) 500 mg 24 hr tablet Take 1 tablet by mouth twice daily with meals. blood sugar diagnostic (BLOOD GLUCOSE TEST) test strip Test blood sugar(s) 2 times daily. Dx: Type 2 DM - unControlled E11.9 Insulin: Yes insulin needles, DISPOSABLE, (PEN NEEDLE) 31 gauge x 5/16 Use one needle per dose. 4 per day. (Patient not taking: Reported on 08/09/2021 ) OMEPRAZOLE ORAL Take 20 mg by mouth once daily. aspirin, enteric coated (ADULT LOW DOSE ASPIRIN) 81 mg EC tablet Take 1 tablet by mouth once daily. No current facility-administered medications on file prior to visit. Social History Social History Tobacco Use Smoking status: Every Day Packs/day: 0.50 Years: 48.00 Pack years: 24.00 Types: Cigarettes Smokeless tobacco: Never Vaping Use Vaping Use: Never used Substance Use Topics Alcohol use: No Drug use: No Review of Symptoms REVIEW OF SYSTEMS GENERAL: No weight loss, malaise or fevers NECK: Negative for lumps, goiter, pain and significant neck swelling RESPIRATORY: Negative for cough, hemoptysis, wheezing, COPD, dyspnea or shortness of breath CARDIOVASCULAR: Negative for chest pain, leg swelling, hypertension, CHF or palpitations. No claudication symptoms. GI: No nausea, vomiting, or diarrhea and No heartburn or reflux symptoms : No history of dysuria, blood ENDOCRINE: Negative for symptoms of low Blood sugars. NEURO: No history of headaches, syncope, paralysis, seizures or tremors EXAM: BP 118/80 (BP Site: Right Arm, BP Position: Sitting, BP Cuff Size: Regular Adult) Pulse 72 Resp 14 Wt 82.6 kg (182 lb) BMI 25.40 kg/m General Appearance: Well appearing, alert, in no acute distress, well-hydrated, well nourished.. Neck: Supple, no adenopathy; thyroid symmetric, normal size, no bruits. Lungs: Lungs clear to auscultation. No wheezing, rhonchi, rales.. Heart: RRR without murmur, gallop, or rubs. No ectopy. Abdomen: Normal abdominal exam, Abdomen soft, non-tender. Bowel sounds normal. No masses, organomegaly. Extremities: No deformities, edema, skin discoloration, Good capillary refill. . Musculoskeletal: Muscular strength intact, No joint swelling, deformity, or tenderness. Peripheral Pulses: Normal. Health Maintenance List HEPATITIS B(1 of 3 - 3-dose series) Never done LUNG CANCER SCREENING Never done SHINGRIX VACCINE(2 of 2) due on 04/14/2021 COLORECTAL CANCER SCREENING due on 05/01/2021 COVID-19 VACCINE(4 - Booster for Pfizer series) due on 06/10/2021 DILATED RETINAL EXAM due on 07/16/2021 DEPRESSION SCREENING due on 07/26/2021 HBA1C due on 09/20/2021 INFLUENZA(1) due on 10/13/2021 DIABETIC FOOT EXAM due on 03/16/2022 URINE ALBUMIN:CREATININE RATIO due on 03/23/2022 LDL CHOLESTEROL due on 03/23/2022 ANNUAL PCP TEAM CHRONIC DISEASE VISIT due on 04/14/2022 PROSTATE CANCER SCREENING DISCUSSION due on 03/23/2026 DTAP,TDAP,TD(3 - Td or Tdap) due on 10/12/2027 PNEUMOCOCCAL(3 - PPSV23 or PCV20) due on 09/21/2028 HEPATITIS C SCREENING Completed HIV SCREENING Completed Data reviewed Component Latest Ref Rng & Units 03/23/2021 04/04/2021 WBC 3.70 - 11.00 k/uL 9.84 10.61 RBC 4.20 - 6.00 m/uL 4.94 4.58 Hemoglobin 13.0 - 17.0 g/dL 14.7 13.6 Hematocrit 39.0 - 51.0 % 45.8 41.8 MCV 80.0 - 100.0 fL 92.7 91.3 MCH 26.0 - 34.0 pG 29.8 29.7 MCHC 30.5 - 36.0 g/dL 32.1 32.5 RDW-CV 11.5 - 15.0 % 13.6 13.6 Platelet Count 150 - 400 k/uL 153 142 (L) MPV 9.0 - 12.7 fL 10.9 11.2 Neut% % 65.8 Abs Neut (ANC) 1.45 - 7.50 k/uL 6.46 Lymph% % 25.6 Abs Lymph 1.00 - 4.00 k/uL 2.52 Bryan% % 5.0 Abs Bryan <0.87 k/uL 0.49 Eosin% % 3.2 Abs Eosin <0.46 k/uL 0.31 Baso% % 0.4 Abs Baso <0.11 k/uL 0.04 Nucleated Reds 0 /100 WBC 0.0 Absolute nRBC <0.01 k/uL <0.01 <0.01 Diff Type Auto Diff Protein, Total 6.3 - 8.0 g/dL 6.9 Albumin 3.9 - 4.9 g/dL 4.1 Calcium 8.5 - 10.2 mg/dL 9.4 Bilirubin, Total 0.2 - 1.3 mg/dL 0.4 Alkaline Phosphatase 38 - 113 U/L 73 AST 14 - 40 U/L 20 Glucose 74 - 99 mg/dL 101 (H) BUN 9 - 24 mg/dL 17 Creatinine 0.73 - 1.22 mg/dL 1.02 Sodium 136 - 144 mmol/L 140 Potassium 3.7 - 5.1 mmol/L 4.5 Chloride 97 - 105 mmol/L 104 CO2 22 - 30 mmol/L 26 Anion Gap 9 - 18 mmol/L 10 ALT 10 - 54 U/L 19 eGFR- >60 eGFR-All Other Races . >60 Total Cholesterol, Nonfasting <200 mg/dL 139 Triglycerides, Nonfasting <150 mg/dL 130 HDL Cholesterol, Nonfasting >39 mg/dL 42 LDL Cholesterol, Nonfasting <100 mg/dL 71 Non HDL Cholesterol, Nonfasting <130 mg/dL 97 VLDL Cholesterol, Nonfasting <30 mg/dL 26 Total Chol/HDL Ratio, Nonfasting <5.10 mg/dL 3.31 LDL/HDL Ratio, Nonfasting <2.54 mg/dL 1.69 Creatinine, Ur Random (UCRR) 20 - 300 mg/dL 279.9 Albumin, Urine Random mg/L 22.0 Albumin/Creat Ratio <30 mg/g 8 Hemoglobin A1C 4.3 - 5.6 % 6.3 (H) Estimated Average Glucose mg/dL 134 Magnesium 1.7 - 2.6 mg/dL 2.2 1.8 Vitamin B12 232 - 1,245 pg/mL 587 A/P ASSESSMENT/PLAN: 1. Type 2 diabetes mellitus without complication, without long-term current use of insulin (HCC) - ICD9: 250.00, ICD10: E11.9 (primary diagnosis) Will await labs to determine if changes needed. - Encouraged regular aerobic exercise and weight loss - BP goal of <130/80 - LDL goal of <100 - cont current Tx. - METFORMIN ER 500 MG TABLET,EXTENDED RELEASE 24 HR Check - HGB A1C - HEPATIC FUNCTION PNL - LIPID PANEL, NONFASTING 2. Mixed hyperlipidemia - ICD9: 272.2, ICD10: E78.2 - to be determined upon return of lab results - Encouraged following a low fat, low cholesterol diet. - Discussed the benefits of regular aerobic exercise and weight loss. - Encouraged following a low carbohydrate, healthy oil intake diet. - Continue current therapy. - HEPATIC FUNCTION PNL - LIPID PANEL, NONFASTING 3. Gastroesophageal reflux disease, unspecified whether esophagitis present - ICD9: 530.81, ICD10: K21.9 - Continue treatment with Prilosec 20 mg QD 4. Migraine without aura and without status migrainosus, not intractable - ICD9: 346.10, ICD10: G43.009 - clinically stable no changes. 5. PAD (peripheral artery disease) (HCC) - ICD9: 443.9, ICD10: I73.9 - improved since surgery. Cont f/u with vascular. Check - LIPID PANEL, NONFASTING 6. Smoker - ICD9: 305.1, ICD10: F17.200 - Cessation encouraged. - Counseling was given focusing on the harmful effects of this addiction especially given the patient's medical condition(s) which will be worsened because of the chemicals in tobacco. 7. Encounter for screening for lung cancer - ICD9: V76.0, ICD10: Z12.2 - CONSULT LUNG CANCER SCREENING CLINIC 8. Screening for colon cancer - ICD9: V76.51, ICD10: Z12.11 - CONSULT TO GENERAL SURGERY Requested Prescriptions Signed Prescriptions Disp Refills atorvastatin (LIPITOR) 20 mg tablet 90 tablet 1 Sig: Take 1 tablet by mouth daily at bedtime. For cholesterol. clopidogrel (PLAVIX) 75 mg tablet 90 tablet 1 Sig: Take 1 tablet by mouth once daily. metFORMIN ER (GLUCOPHAGE XR) 500 mg 24 hr tablet 180 tablet 1 Sig: Take 1 tablet by mouth twice daily with meals. F/u 6 months WAE check CMP, Lipid, UA, urine micro albumin, A1c, CBC, PSA, Mg and B12 prior. Mateo Denise MD documented in this encounter [facility] 08-09-2021 History of Present illness Narrative Last saw Emily Kay 05/03 Subjective: Patient presents to clinic c/o painful toenails. They state that the nails are especially painful with shoe gear and pressure. Patient states that nails 1-5 b/l are painful. Patient admits to being diabetic. No other pedal complaints at this time. Patient states no change in medications or medical history since last visit. Objective: Patient presents to clinic ambulating in boots Vasc: DP and PT pulses are faintly palpable bilateral. CFT is less than 5 seconds bilateral. Skin temperature is warm to cool proximal to distal bilateral. There is mild edema or varicosities noted. Neuro: Protective sensation is intact to the foot and toes when tested with the 5.07 SWM bilateral. Vibratory sensation is decreased at the hallux IPJ bilateral. The hallux is downgoing bilateral. Derm: Nails 1-5 b/l are painful, discolored-yellow, thick, crumbly, dystrophic and with subungal debris. Skin is of normal turgor, texture and hair growth is present bilateral. There are no hyperkeratosis, ulcerations, scars, verruca or other lesions noted. Ortho: Muscle strength is 5/5 for all pedal groups tested. Ankle joint DF is decreased with the knee extended with no pain or crepitus noted. 1st MPJ ROM is decreased bilateral. Assessment: (E11.51) Type 2 diabetes mellitus with diabetic peripheral angiopathy without gangrene, unspecified whether care home insulin use (HCC) (primary (B35.1) Onychomycosis (M79.675) Pain in toe of left foot (M79.674) Pain in toe of right foot (I73.9) Peripheral arterial disease (HCC) Plan: Patient was seen and evaluated. Nails 1-5 bilateral were debrided in length and thickness. Patient was instructed on the continued importance of diabetic foot care along with proper diet and keeping their blood sugar under control to prevent complications. Patient is to RTC in 3-4 months. David Yu DPM Patient presents with: Left Foot - Follow Up, Nail Care Right Foot - Follow Up, nail Care documented in this encounter [facility] 08-09-2021 Instructions David Yu - 08/09/2021 4:17 PM EDT Diabetes Foot Care Instructions When you have diabetes, proper foot care is very important. Poor foot care may lead to amputation of a foot or leg. As a person with diabetes, you are more vulnerable to foot problems, because diabetes can damage your nerves and reduce blood flow to your feet. Here are some diabetes foot care tips to follow: Wash and Dry Your Feet Daily Use mild soaps Use warm water Pat your skin dry; do not rub. Thoroughly dry your feet. After washing, use lotion on your feet to prevent cracking. Do not put lotion between your toes. Examine Your Feet Each Day Check the tops and bottoms of your feet. Have someone else look at your feet if you cannot see them. Check for dry, cracked skin. Look for blisters, cuts, scratches, or other sores. Check for redness, increased warmth, or tenderness when touching any area of your feet. Check for ingrown toenails, corns, and calluses. If you get a blister or sore from your shoes, do not pop it. Apply a bandage and wear a different pair of shoes. Take Care of Your Toenails Cut toenails after bathing, when they are soft. Cut toenails straight across and smooth with a nail file. Avoid cutting into the corners of toes. Do not cut cuticles. If you have neuropathy (or decreased sensation in your feet) a retail merchandising manager should always cut your toenails. Be Careful When Exercising Walk and exercise in comfortable shoes. Do not exercise when you have open sores on your feet. Protect Your Feet With Shoes and Socks Never go barefoot. Always protect your feet by wearing shoes or hard-soled slippers or footwear. Avoid shoes with high heels and pointed toes. Avoid shoes that expose your toes or heels (such as open-toed shoes or sandals). These types of shoes increase your risk for injury and potential infections. Try on new footwear with the type of socks you usually wear. Do not wear new shoes for more than an hour at a time. Change your socks daily. Look and feel inside your shoes before putting them on to make sure there are no foreign objects or rough areas. Avoid tight socks. Wear natural-fiber socks (cotton, wool, or a cotton-wool blend). Wear special shoes if your health care provider recommends them. Wear shoes/boots that will protect your feet from various weather conditions (cold, moisture, etc.). Make sure your shoes fit properly. If you have neuropathy (nerve damage), you may not notice that your shoes are too tight. Perform the footwear test described below. Footwear Test Use this simple test to see if your shoes fit correctly: Stand on a piece of paper. (Make sure you are standing and not sitting, because your foot changes shape when you stand.) Trace the outline of your foot. Trace the outline of your shoe. Compare the tracings: Is the shoe too narrow? Is your foot crammed into the shoe? The shoe should be at least 1/2 inch longer than your longest toe and as wide as your foot. Proper Shoe Choices The following types of shoes are best for people with diabetes Closed toes and heels Leather uppers without a seam inside At least 1/2 inch extra space at the end of your longest toe Inside of shoe should be soft with no rough areas Outer sole should be made of stiff material Shoes should be at least as wide as your feet Tips for Foot Care in Diabetes Don't wait to treat a minor foot problem if you have diabetes. Follow your health care provider's guidelines and first aid guidelines. Report foot injuries and infections to your health care provider immediately. Check water temperature with your elbow, not your foot. Do not use a heating pad on your feet. Do not cross your legs. Do not self-treat your corns, calluses, or other foot problems. Go to your health care provider or retail merchandising manager to treat these conditions. documented in this encounter [facility] 07-15-2021 History of Present illness Narrative VASCULAR SURGERY ESTABLISHED PATIENT SERVICE DATE: 07/15/2021 SERVICE TIME: 10:44 AM PRIMARY CARE PHYSICIAN: Mateo Denise MD SUBJECTIVE HISTORY OF PRESENT ILLNESS: This is a 55 y.o. male with PAD s/p Right SFA stent, DM2 and a smoker, on 04/01 he underwent a left Common femoral to above knee popliteal bypass with in-situ vein graft with Dr. Perez. Today pt presents to the office to review non-invasive studies. Reports claudication after 3,000 steps, over reports feeling better since his surgery. Reports compliance with Plavix, Asa, AtorvastatinDenies new complaints. PAST MEDICAL/SURGICAL/FAMILY/SOCIAL HISTORY PAST MEDICAL HISTORY Diagnosis Date Claudication (HCC) 05/31/2017 GERD (gastroesophageal reflux disease) 04/24/2012 Migraines hasn't had since pinch nerve addressed in neck Mixed hyperlipidemia 10/11/2017 PAD (peripheral artery disease) (HCC) 06/14/2017 Sebaceous cyst 02/14/2011 Smoker 05/31/2017 Started age 8 up 2 PPD, as of 09/2017 down to 2 cigs a day Type 2 diabetes mellitus without complication, without long-term current use of insulin ([facility]) 03/24/2020 PAST SURGICAL HISTORY Procedure Laterality Date COLONOSCOPY FLX DX W/COLLJ SPEC WHEN PFRMD 09/12/2010 Diverticulosis. [facility] inpt COLONOSCOPY FLX DX W/COLLJ SPEC WHEN PFRMD 05/01/2016 Colonoscopy, repeat 5 yrs ESOPHAGOGASTRODUODENOSCOPY TRANSORAL DIAGNOSTIC 09/12/2010 [facility] inpt/ H-pylori negative. Small hiatal hernia ESOPHAGOGASTRODUODENOSCOPY TRANSORAL DIAGNOSTIC 05/01/2016 EGD LAPAROSCOPIC CHOLECYSTECTOMY 04/14/2020 PAST SURGICAL HISTORY OF Bilateral LE stenting FAMILY HISTORY Problem Relation Age of Onset Asthma Father Cancer Father lung Emphysema Father COPD Father Hypertension Father Breast Cancer Mother Hypertension Mother Breast Cancer Maternal Grandmother Cancer Brother colon, age 42 SOCIAL HISTORY Social History Tobacco Use Smoking status: Current Every Day Smoker Packs/day: 0.50 Years: 48.00 Pack years: 24.00 Types: Cigarettes Smokeless tobacco: Never Used Vaping Use Vaping Use: Never used Substance Use Topics Alcohol use: No Drug use: No MEDICATIONS/ALLERGIES Current Outpatient Medications Medication Sig Dispense Refill atorvastatin (LIPITOR) 20 mg tablet Take 1 tablet by mouth daily at bedtime. For cholesterol. 90 tablet 1 clopidogrel (PLAVIX) 75 mg tablet Take 1 tablet by mouth once daily. 90 tablet 1 aspirin, enteric coated (ADULT LOW DOSE ASPIRIN) 81 mg EC tablet Take 1 tablet by mouth once daily. oxyCODONE IR (ROXICODONE) 5 mg immediate release tablet Take 1 tablet by mouth every 6 hours as needed for pain. (Patient not taking: Reported on 05/05/2021) 12 tablet 0 acetaminophen (TYLENOL) 325 mg tablet Take 2 tablets by mouth every 4 hours as needed for pain. 30 tablet 0 metFORMIN ER (GLUCOPHAGE XR) 500 mg 24 hr tablet Take 1 tablet by mouth twice daily with meals. 180 tablet 1 blood sugar diagnostic (BLOOD GLUCOSE TEST) test strip Test blood sugar(s) 2 times daily. Dx: Type 2 DM - unControlled E11.9 Insulin: Yes 100 Strip 11 insulin needles, DISPOSABLE, (PEN NEEDLE) 31 gauge x 5/16 Use one needle per dose. 4 per day. (Patient not taking: Reported on 05/05/2021 ) 150 Each 2 OMEPRAZOLE ORAL Take 20 mg by mouth once daily. No current facility-administered medications for this visit. ALLERGIES Allergen Reactions Chantix [Vareniclin* Vomiting Phenergan [Prometha* Swelling Pt states when taking in tablet form tongue and throat swelled. Pt reports he can take in in IV without reaction Pletal [Cilostazol] GI Upset Simvastatin Other: See Comments Bodyaches, flu-like sx Tramadol Rash, GI Upset OBJECTIVE BP 145/86 Pulse 70 Wt 77.6 kg (171 lb) BMI 23.86 kg/m Review of systems Ears/Nose/Throat: negative, hard of hearing and vertigo Respiratory: No cough, hemoptysis, asthma, recent chest infection, wheezing Cardiovascular: No history of chest pain, palpitation, orthopnea, cyanosis, pedal edema and claudication Gastrointestinal: No blood in stool, pain with BM, tarry stool, persistent diarrhea or constipation Genitourinary: No burning with urination, blood in urine or incontinence and No change in vaginal discharge, burning, dryness or itching Musculoskeletal: negative Neurologic: No history of headaches, syncope, paralysis, seizures or tremors Psychiatric: negative Hematologic/Lymphatic/Immunologic: negative Endocrine: No history of thyroid disorder, diabetes, cold intolerance, heat intolerance, polydypsia CONSTITUTIONAL: No distress NEUROLOGIC/PSYCHIATRIC: Alert, Oriented and No gross focal neurologic deficits HEENT: EOM's intact LUNGS: Nonlabored breathing on room air. HEART: Warm and well perfused ABDOMEN: Soft and Non-distended INTEGUMENTARY: Wound - No MUSCULOSKELETAL: No deformities Pulses/Signals: DP/PTs palpable on the left and right ASSESSMENT (I73.9) PAD (peripheral artery disease) (HCC) (primary encounter diagnosis) (F17.200) Smoker (E78.2) Mixed hyperlipidemia PLAN/RECOMMENDATIONS PAD s/p Right SFA stent 04/01/2021 - Doing well - Continue with Plavix, Asa, Atorvastatin - Continue with Blood glucose monitoring - Encourage smoking cessation - Follow up with Jose Alfredo Art duplex and NADYA/PVR in 6 months Time spent: 40 documented in this encounter [facility] 05-16-2021 History of Present illness Narrative Mr. Barton returns to us for evaluation prior to turning to work. He is able to walk without limitations. He is able to normal activity throughout the day currently without significant limitations. There is a seroma in the above the incision which is shrinking. It does not cause him any discomfort currently. On examination I can easily palpate a graft pulse in the left leg. The left foot is well-perfused. The posterior tibial pulses palpable. There is no redness or erythema around the seroma which measures roughly the size of a flattened soft boiled egg. Mr. Jiang doing well and has a patent bypass in the left leg. He has no symptoms currently. He may return to work without limitations on May 23 per my note which I signed. He needs to work on range of motion of his left knee and buildups's more stamina while at home per his physical therapy exercises. I will recheck on the bypass in 3 months with a graft duplex and ABIs. Total 25 minutes spent reviewing medical chart and more than 50% of this time was [id number] with patient. documented in this encounter [facility] 05-11-2021 Miscellaneous Notes Spoke with patients and confirmed appointment Scheduled patient for appointment with on 05/16/2021 left message for patient to call and confirm Images from the original note were not included. MD Dayana Dowd; Nena Perez MD; Seema Falk, CORBY; Brittnee Stroud, CORBY; Tavon Ramirez Displayer 6 hours ago (10:30 AM) Dr Perez notes states, I do believe his time off from work should be extended another 4 weeks as he is not able to walk and perform his duties at his job. The return to work note should reflect that. If he wants to return to work sooner, I am happy to see them at the 4 week time from that visit with Dr Perez or setup an appt w Dr Perez to re-evaluate whether light duty is appropriate. Judith covering for Dr Perez Message text Martinez Barton called today. : 1965 Allergies: Chantix [Varenicline], Phenergan [Promethazine Hcl], Pletal [Cilostazol], Simvastatin, and Tramadol (home) [phone] (work) [phone] (cell) Reason for call: patient is to return to work on Sunday but needs a retrrn to work note stating he is not on light duty..... with no restrictions . Please upload the letter to patient's MyChart Patient last appointment: Visit date not found The patients preferred pharmacy has been captured for this encounter? no Dayana Nowak documented in this encounter [facility] 04-04-2021 Note HNO ID: [id number] Author: Clovis Wright MD Service: Vascular Surgery Author Type: Resident Type: Progress Notes Filed: 04/04/2021 7:49 AM Note Text: [facility] V[facility]ULAR [facility]GERY PROGRESS NOTE Service Date: 04/04/2021dmit Date: 04/01/2021ervice Time: 7:47 AM LOS: 3 day(s) Primary Service: Vascular Surgery Vascular Physician: Nena Perez MD Interval Events/Issues: NAEON Pain well controlled Vascular exam unchanged Current Facility-Administered Medications Medication Dose Route Frequency - ipratropium-albuterol 3 mL nebulizer solution (DUONEB) 3 mL INHALATION PRN - fentaNYL 50 mcg/mL 50 mcg injection (SUBLIMAZE) 50 mcg INTRAVENOUS q 10 MIN PRN - HYDROmorphone 0.2 mg injection (DILAUDID) 0.2 mg INTRAVENOUS q 5 MIN PRN - ondansetron 4 mg tab(s) (ZOFRAN) 4 mg ORAL q 6 H PRN Or - ondansetron (PF) 4 mg injection (ZOFRAN) 4 mg INTRAVENOUS q 6 H PRN - prochlorperazine 10 mg injection (COMPAZINE) 10 mg INTRAVENOUS q 6 H PRN - atorvastatin 20 mg tab(s) (LIPITOR) 20 mg ORAL AT BEDTIME - aspirin, enteric coated 81 mg tab(s) 81 mg ORAL DAILY - clopidogrel 75 mg tab(s) (PLAVIX) 75 mg ORAL DAILY - NaCl 0.9% iv flush bag 20 mL INTRAVENOUS PRN - sodium chloride 0.9 % (flush) 3-5 mL (BD POSIFLUSH) 3-5 mL INTRAVENOUS q 12 H - acetaminophen 650 mg tab(s) (TYLENOL) 650 mg ORAL q 6 H - oxyCODONE IR 5 mg tab(s) (ROXICODONE) 5 mg ORAL q 6 H PRN - pantoprazole DR 20 mg tab(s) (PROTONIX) 20 mg ORAL DAILY (6 AM) - dextrose 40 % 15 g 15 g ORAL PRN Or - glucagon 1 mg injection 1 mg INTRAMUSCULAR PRN Or - dextrose 50 % 12.5 g injection 12.5 g INTRAVENOUS PRN - heparin 5,000 Units injection 5,000 Units SUBCUTANEOUS q 12 H - HYDROmorphone 0.3 mg injection (DILAUDID) 0.3 mg INTRAVENOUS q 4 H PRN - insulin lispro injection (rapid acting) (HumaLOG) SUBCUTANEOUS w MEALS AND HS Medication and Non-Pharmacologic VTE Prophylaxis/Anticoagulants Anticoagulant AND Antiplatelet Medications (From admission, onward) Start Dose Route Frequency Last Action Ordered Stop 04/02/21 2100 heparin 5,000 Units injection (Surgical Risk Categories) 5,000 Units SUBCUTANEOUS EVERY 12 HOURS Given, 04/03 199904/02/21 1559 -- 04/02/21 0900 aspirin, enteric coated 81 mg tab(s) 81 mg ORAL DAILY Given, 04/03 81704/01/21 1626 -- 04/02/21 0900 clopidogrel 75 mg tab(s) (PLAVIX) 75 mg ORAL DAILY Given, 04/03 81704/01/21 1626 -- 04/01/21 1630 activity - mobilize patient (il,nm) VTE Prophylaxis: Needs to be revised ALLERGIES Allergen Reactions - Chantix [Vareniclin* Vomiting - Phenergan [Prometha* Swelling Pt states when taking in tablet form tongue and throat swelled. Pt reports he can take in in IV without reaction - Pletal [Cilostazol] GI Upset - Simvastatin Other: See Comments Bodyaches, flu-like sx - Tramadol Rash, GI Upset Objective PHYSICAL EXAM: Patient Vitals for the past 24 hrs: BP Temp Temp src Pulse Resp SpO2 Height Weight 04/02/21 0600 ? ? ? 66 14 95 % ? ? 04/02/21 0400 ? 36.7 ?C (98.1 ?F) Oral 64 19 94 % ? ? 04/02/21 0300 ? ? ? 67 20 92 % ? ? 04/02/21 0252 ? 180.3 cm (5' 10.98 ) 76.7 kg (169 lb) 04/02/21 0200 ? ? ? 71 16 93 % ? ? 04/02/21 0100 ? ? ? 68 16 89 % ? ? 04/02/21 0000 ? ? ? 73 19 90 % ? ? 04/01/21 2300 ? 37.4 ?C (99.3 ?F) Oral ? 04/01/21 2200 ? ? ? 74 17 90 % ? ? 04/01/21 2100 ? ? ? 75 11 96 % ? ? 04/01/21 2000 ? 36.9 ?C (98.4 ?F) Oral 69 17 94 % ? ? 04/01/21 1900 ? ? ? 70 16 91 % ? ? 04/01/21 1800 ? ? ? 71 14 94 % ? ? 04/01/21 1700 ? ? ? (!) 57 8 97 % ? ? 04/01/21 1600 ? 36.6 ?C (97.9 ?F) Oral ? 04/01/21 0946 141/84 36.4 ?C (97.5 ?F) Temporal Art 66 18 100 % ? ? Intake/Output Summary (Last 24 hours) at 04/04/2021 0747 Last data filed at 04/04/2021 0538 Gross per 24 hour Intake 1220 ml Output 2575 ml Net -1355 ml CONSTITUTIONAL: No distress NEUROLOGIC/PSYCHIATRIC: Alert, Oriented and No gross focal neurologic deficits HEENT: EOM's intact LUNGS: Nonlabored breathing on room air. HEART: Warm and well perfused ABDOMEN: Soft and Non-distended INTEGUMENTARY: Wound - Yes. left groin incision is cdi with medical glue in place SURGICAL SITES: Lower extremity - LLE; covered with dressing Groin - left; Clean, dry and intact MUSCULOSKELETAL: No deformities Pulses/Signals: DP/PTs palpable on the left. DATA: Laboratory: Recent Labs 04/04/21 0459 04/03/21 1334 04/02/21 0345 WBC 10.61 11.21* 17.44* HB 13.6 12.9* 12.6* HCT 41.8 39.9 37.9* PLT 142* 125* 139* Recent Labs 04/03/21 1334 04/02/21 0345 NA 140 136 K 3.6 4.2 BUN 18 16 CREAT 0.88 0.84 GLUC 127* 149* MG 2.0 1.9 Assessment/Plan Impression: Martinez Barton is a 55 year old White male who is POD# 2, admitted for a left fem-AKA pop bypass with in situ GSV with fem endarterectomy. Plan: Neuro: Pain control: Sched tylenol, PRN oxy, dilaudid Cardiac: Vitals HDS. Home meds: continue lipitor, plavix, a (more content not included)... [facility] 04-03-2021 Note HNO ID: [id number] Author: Patti Sharma MD Service: Vascular Surgery Author Type: Resident Type: Progress Notes Filed: 04/03/2021 8:00 AM Note Text: [facility] PROGRESS NOTE Service Date: 04/03/2021dmit Date: 04/01/2021ervice Time: 12:56 AM LOS: 2 day(s) Primary Service: Vascular Surgery Vascular Physician: Nena Perez MD Interval Events/Issues: NAEON Pain well controlled Vascular exam unchanged Worked with PT yesterday. Dressing changed at bedside and leg re-wrapped Labs pending this morning Current Facility-Administered Medications Medication Dose Route Frequency - lactated ringers iv infusion 100 mL/hr INTRAVENOUS CONTINUOUS - ipratropium-albuterol 3 mL nebulizer solution (DUONEB) 3 mL INHALATION PRN - fentaNYL 50 mcg/mL 50 mcg injection (SUBLIMAZE) 50 mcg INTRAVENOUS q 10 MIN PRN - HYDROmorphone 0.2 mg injection (DILAUDID) 0.2 mg INTRAVENOUS q 5 MIN PRN - ondansetron 4 mg tab(s) (ZOFRAN) 4 mg ORAL q 6 H PRN Or - ondansetron (PF) 4 mg injection (ZOFRAN) 4 mg INTRAVENOUS q 6 H PRN - prochlorperazine 10 mg injection (COMPAZINE) 10 mg INTRAVENOUS q 6 H PRN - atorvastatin 20 mg tab(s) (LIPITOR) 20 mg ORAL AT BEDTIME - aspirin, enteric coated 81 mg tab(s) 81 mg ORAL DAILY - clopidogrel 75 mg tab(s) (PLAVIX) 75 mg ORAL DAILY - enoxaparin 40 mg injection (LOVENOX) 40 mg SUBCUTANEOUS q 24 HR - NaCl 0.9% iv flush bag 20 mL INTRAVENOUS PRN - sodium chloride 0.9 % (flush) 3-5 mL (BD POSIFLUSH) 3-5 mL INTRAVENOUS q 12 H - acetaminophen 650 mg tab(s) (TYLENOL) 650 mg ORAL q 6 H - oxyCODONE IR 5 mg tab(s) (ROXICODONE) 5 mg ORAL q 6 H PRN - pantoprazole DR 20 mg tab(s) (PROTONIX) 20 mg ORAL DAILY (6 AM) - dextrose 40 % 15 g 15 g ORAL PRN Or - glucagon 1 mg injection 1 mg INTRAMUSCULAR PRN Or - dextrose 50 % 12.5 g injection 12.5 g INTRAVENOUS PRN - insulin lispro injection (rapid acting) (HumaLOG) SUBCUTANEOUS q 6 H - heparin 5,000 Units injection 5,000 Units SUBCUTANEOUS q 12 H - HYDROmorphone 0.3 mg injection (DILAUDID) 0.3 mg INTRAVENOUS q 4 H PRN Medication and Non-Pharmacologic VTE Prophylaxis/Anticoagulants Anticoagulant AND Antiplatelet Medications (From admission, onward) Start Dose Route Frequency Last Action Ordered Stop 04/02/21 2100 heparin 5,000 Units injection (Surgical Risk Categories) 5,000 Units SUBCUTANEOUS EVERY 12 HOURS Given, 04/02 202504/02/21 1559 -- 04/02/21 0900 aspirin, enteric coated 81 mg tab(s) 81 mg ORAL DAILY Given, 04/02 81204/01/21 1626 -- 04/02/21 0900 clopidogrel 75 mg tab(s) (PLAVIX) 75 mg ORAL DAILY Given, 04/02 81204/01/21 1626 -- 04/02/21 0900 enoxaparin 40 mg injection (LOVENOX) (Surgical Risk Categories) 40 mg SUBCUTANEOUS EVERY 24 HOURS Given, 04/02 81204/01/21 1626 -- 04/01/21 1630 activity - mobilize patient (il,nm) VTE Prophylaxis: Needs to be revised ALLERGIES Allergen Reactions - Chantix [Vareniclin* Vomiting - Phenergan [Prometha* Swelling Pt states when taking in tablet form tongue and throat swelled. Pt reports he can take in in IV without reaction - Pletal [Cilostazol] GI Upset - Simvastatin Other: See Comments Bodyaches, flu-like sx - Tramadol Rash, GI Upset Objective PHYSICAL EXAM: Patient Vitals for the past 24 hrs: BP Temp Temp src Pulse Resp SpO2 Height Weight 04/02/21 0600 ? ? ? 66 14 95 % ? ? 04/02/21 0400 ? 36.7 ?C (98.1 ?F) Oral 64 19 94 % ? ? 04/02/21 0300 ? ? ? 67 20 92 % ? ? 04/02/21 0252 ? 180.3 cm (5' 10.98 ) 76.7 kg (169 lb) 04/02/21 0200 ? ? ? 71 16 93 % ? ? 04/02/21 0100 ? ? ? 68 16 89 % ? ? 04/02/21 0000 ? ? ? 73 19 90 % ? ? 04/01/21 2300 ? 37.4 ?C (99.3 ?F) Oral ? 04/01/21 2200 ? ? ? 74 17 90 % ? ? 04/01/21 2100 ? ? ? 75 11 96 % ? ? 04/01/21 2000 ? 36.9 ?C (98.4 ?F) Oral 69 17 94 % ? ? 04/01/21 1900 ? ? ? 70 16 91 % ? ? 04/01/21 1800 ? ? ? 71 14 94 % ? ? 04/01/21 1700 ? ? ? (!) 57 8 97 % ? ? 04/01/21 1600 ? 36.6 ?C (97.9 ?F) Oral ? 04/01/21 0946 141/84 36.4 ?C (97.5 ?F) Temporal Art 66 18 100 % ? ? Intake/Output Summary (Last 24 hours) at 04/03/2021 0056 Last data filed at 04/02/2021 2359 Gross per 24 hour Intake 120 ml Output 2205 ml Net -2085 ml CONSTITUTIONAL: No distress NEUROLOGIC/PSYCHIATRIC: Alert, Oriented and No gross focal neurologic deficits HEENT: EOM's intact LUNGS: Nonlabored breathing on room air. HEART: Warm and well perfused ABDOMEN: Soft and Non-distended INTEGUMENTARY: Wound - Yes. left groin incision is cdi with medical glue in place SURGICAL SITES: Lower extremity - LLE; covered with dressing Groin - left; Clean, dry and intact MUSCULOSKELETAL: No deformities Pulses/Signals: DP/PTs palpable on the left. DATA: Laboratory: Recent Labs 04/02/21 0345 WBC 17.44* HB 12.6* HCT 37.9* PLT 139* Recent Labs 04/02/21 0345 NA 136 K 4.2 BUN 16 CREAT 0.84 GLUC 149* MG 1.9 Recent Labs 03/31/21 0941 APTT 27.1 (more content not included)... 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 ? On 04/01 he underwent a left Common femoral to knee popliteal bypass with in-situ vein graft. INTERVAL EVENTS: No acute overnight events Objective VITAL SIGNS Temp: 36.7 ?C (98.1 ?F) Pulse: 62 BP: 141/84 Arterial BP 1: 132/58 MAP Invasive (Mean Arterial Pressure) 1: 85 Resp: 14 SpO2: 96 % Not applicable Current Facility-Administered Medications Medication Dose Route Frequency - atorvastatin 20 mg tab(s) (LIPITOR) 20 mg ORAL AT BEDTIME - aspirin, enteric coated 81 mg tab(s) 81 mg ORAL DAILY - clopidogrel 75 mg tab(s) (PLAVIX) 75 mg ORAL DAILY - Chlorhexidine Gluconate 0.12 % 15 mL (PERIDEX) 15 mL ORAL q 6 HR - enoxaparin 40 mg injection (LOVENOX) 40 mg SUBCUTANEOUS q 24 HR - NaCl 0.9% iv flush bag 20 mL INTRAVENOUS PRN - sodium chloride 0.9 % (flush) 3-5 mL (BD POSIFLUSH) 3-5 mL INTRAVENOUS q 12 H - lactated ringers iv infusion 75 mL/hr INTRAVENOUS CONTINUOUS - acetaminophen 650 mg tab(s) (TYLENOL) 650 mg ORAL q 6 H - oxyCODONE IR 5 mg tab(s) (ROXICODONE) 5 mg ORAL q 6 H PRN - pantoprazole DR 20 mg tab(s) (PROTONIX) 20 mg ORAL DAILY (6 AM) - dextrose 40 % 15 g 15 g ORAL PRN Or - glucagon 1 mg injection 1 mg INTRAMUSCULAR PRN Or - dextrose 50 % 12.5 g injection 12.5 g INTRAVENOUS PRN - insulin lispro injection (rapid acting) (HumaLOG) SUBCUTANEOUS q 6 H - HYDROmorphone 0.3 mg injection (DILAUDID) 0.3 mg INTRAVENOUS q 4 H PRN Neuro: Awake, Follows commands, Alert and Moving all extremities Pulm: Tolerating NC Cardiovascular: Regular rhythm Abdomen: Soft and Nontender Extremities: without edema, warm, palpable pulses CXR Findings: Non indicated Diagnostic tests reviewed for today's visit: Most recent labs and imaging results. 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 ? On 04/01 he underwent a left Common femoral to knee popliteal bypass with in-situ vein graft. ? REASON FOR ICU ADMISSION: hemodynamic monitoring PROCEDURE: left Common femoral to knee popliteal bypass with in-situ vein graft. ? Seen and discussed on rounds with SICU staff: Dr. Oquendo Neuro: Sedation: None Pain: tylenol q6h, dilaudid, oxycodone CV: Telemetry Atorvastatin Plavix, ASA Pulm: On RA Encourage IS GI: Diet: Regular Protonix Renal: Dc matt Adequate UOP Daily BMP ID: No indication for antibiotic therapy Perioperative atb Heme: Stable H/h No indication for transfusion Daily CBC Endocrine: No glycemic issues, glucose 130s-160 Glucose monitoring Hold home: Metformin Prophylaxis: DVT: SCD lovenox GI: PPI due to home omeprazole Dispo: RNF Medication and Non-Pharmacologic VTE Prophylaxis/Anticoagulants Anticoagulant AND Antiplatelet Medications (From admission, onward) Start Dose Route Frequency Last Action Ordered Stop 04/02/21 0900 aspirin, enteric coated 81 mg tab(s) 81 mg ORAL DAILY Ordered 04/01/21 1626 -- 04/02/21 0900 clopidogrel 75 mg tab(s) (PLAVIX) 75 mg ORAL DAILY Ordered 04/01/211625 -- 04/02/21 0900 enoxaparin 40 mg injection (LOVENOX) (Surgical Risk Categories) 40 mg SUBCUTANEOUS EVERY 24 HOURS Ordered 04/01/211625 -- SIGNATURE: Lawrence Landry MD PATIENT NAME: Martinez Barton DATE: 04/02/2021 TIME: 7:49 AM [facility] STAFF PHYSICIAN NOTE OF PERSONAL INVOLVEMENT IN CARE ? I have reviewed the progress note?obtained and documented by the resident?and I personally participated in the vasquez components. I have discussed the case and management of the patient's care. The following comments revise or confirm relevant vasquez components of their note. Peripheral arterial disease Status post femoral-popliteal bypass in situ Claudication Acute postoperative pain Nicotine abuse Diabetes type 2 Stable post-op period HD's controlled without infusions Aspirin and Plavix ordered Statin ordered Prophylactic Lovenox Pain well controlled with current regimen Conversationally appropriate nonfocal neurologic exam No signs of impending respiratory failure (more content not included)... [facility] 04-02-2021 Note HNO ID: [id number] Author: Clovis Wright MD Service: Vascular Surgery Author Type: Resident Type: Progress Notes Filed: 04/02/2021 7:10 AM Note Text: [facility] PROGRESS NOTE Service Date: 04/02/2021dmit Date: 04/01/2021ervice Time: 6:56 AM LOS: 1 day(s) Primary Service: Vascular Surgery Vascular Physician: Nena Perez MD Interval Events/Issues: s/p Left femoral popliteal bypass with in situ greater saphenous vein, femoral endarterectomy, intraoperative ultrasound Subjective No acute events overnight. Pain is well controlled. HDS. Tolerating RA. No changes in neurovascular checks overnight. Current Facility-Administered Medications Medication Dose Route Frequency - atorvastatin 20 mg tab(s) (LIPITOR) 20 mg ORAL AT BEDTIME - aspirin, enteric coated 81 mg tab(s) 81 mg ORAL DAILY - clopidogrel 75 mg tab(s) (PLAVIX) 75 mg ORAL DAILY - Chlorhexidine Gluconate 0.12 % 15 mL (PERIDEX) 15 mL ORAL q 6 HR - enoxaparin 40 mg injection (LOVENOX) 40 mg SUBCUTANEOUS q 24 HR - NaCl 0.9% iv flush bag 20 mL INTRAVENOUS PRN - sodium chloride 0.9 % (flush) 3-5 mL (BD POSIFLUSH) 3-5 mL INTRAVENOUS q 12 H - lactated ringers iv infusion 75 mL/hr INTRAVENOUS CONTINUOUS - acetaminophen 650 mg tab(s) (TYLENOL) 650 mg ORAL q 6 H - oxyCODONE IR 5 mg tab(s) (ROXICODONE) 5 mg ORAL q 6 H PRN - pantoprazole DR 20 mg tab(s) (PROTONIX) 20 mg ORAL DAILY (6 AM) - dextrose 40 % 15 g 15 g ORAL PRN Or - glucagon 1 mg injection 1 mg INTRAMUSCULAR PRN Or - dextrose 50 % 12.5 g injection 12.5 g INTRAVENOUS PRN - insulin lispro injection (rapid acting) (HumaLOG) SUBCUTANEOUS q 6 H - HYDROmorphone 0.3 mg injection (DILAUDID) 0.3 mg INTRAVENOUS q 4 H PRN - magnesium sulfate 2 g in sterile water 50 ml 2 g INTRAVENOUS ONCE Medication and Non-Pharmacologic VTE Prophylaxis/Anticoagulants Anticoagulant AND Antiplatelet Medications (From admission, onward) Start Dose Route Frequency Last Action Ordered Stop 04/02/21 0900 aspirin, enteric coated 81 mg tab(s) 81 mg ORAL DAILY Ordered 04/01/21 1626 -- 04/02/21 0900 clopidogrel 75 mg tab(s) (PLAVIX) 75 mg ORAL DAILY Ordered 04/01/21 1626 -- 04/02/21 0900 enoxaparin 40 mg injection (LOVENOX) (Surgical Risk Categories) 40 mg SUBCUTANEOUS EVERY 24 HOURS Ordered 04/01/21 1626 -- 04/01/21 1630 activity - mobilize patient (il,nm) VTE Prophylaxis: Needs to be revised ALLERGIES Allergen Reactions - Chantix [Vareniclin* Vomiting - Phenergan [Prometha* Swelling Pt states when taking in tablet form tongue and throat swelled. Pt reports he can take in in IV without reaction - Pletal [Cilostazol] GI Upset - Simvastatin Other: See Comments Bodyaches, flu-like sx - Tramadol Rash, GI Upset Objective PHYSICAL EXAM: Patient Vitals for the past 24 hrs: BP Temp Temp src Pulse Resp SpO2 Height Weight 04/02/21 0600 ? ? ? 66 14 95 % ? ? 04/02/21 0400 ? 36.7 ?C (98.1 ?F) Oral 64 19 94 % ? ? 04/02/21 0300 ? ? ? 67 20 92 % ? ? 04/02/21 0252 ? 180.3 cm (5' 10.98 ) 76.7 kg (169 lb) 04/02/21 0200 ? ? ? 71 16 93 % ? ? 04/02/21 0100 ? ? ? 68 16 89 % ? ? 04/02/21 0000 ? ? ? 73 19 90 % ? ? 04/01/21 2300 ? 37.4 ?C (99.3 ?F) Oral ? 04/01/21 2200 ? ? ? 74 17 90 % ? ? 04/01/21 2100 ? ? ? 75 11 96 % ? ? 04/01/21 2000 ? 36.9 ?C (98.4 ?F) Oral 69 17 94 % ? ? 04/01/21 1900 ? ? ? 70 16 91 % ? ? 04/01/21 1800 ? ? ? 71 14 94 % ? ? 04/01/21 1700 ? ? ? (!) 57 8 97 % ? ? 04/01/21 1600 ? 36.6 ?C (97.9 ?F) Oral ? 04/01/21 0946 141/84 36.4 ?C (97.5 ?F) Temporal Art 66 18 100 % ? ? Intake/Output Summary (Last 24 hours) at 04/02/2021 0656 Last data filed at 04/02/2021 0600 Gross per 24 hour Intake 2700 ml Output 2645 ml Net 55 ml CONSTITUTIONAL: No distress NEUROLOGIC/PSYCHIATRIC: Alert, Oriented and No gross focal neurologic deficits HEENT: EOM's intact LUNGS: Nonlabored breathing on room air. HEART: Warm and well perfused ABDOMEN: Soft and Non-distended INTEGUMENTARY: Wound - Yes. left groin incision is cdi with medical glue in place SURGICAL SITES: Lower extremity - LLE; covered with dressing Groin - left; Clean, dry and intact MUSCULOSKELETAL: No deformities Pulses/Signals: DP/PTs palpable on the left. DATA: Laboratory: Recent Labs 04/02/21 0345 WBC 17.44* HB 12.6* HCT 37.9* PLT 139* Recent Labs 04/02/21 0345 NA 136 K 4.2 BUN 16 CREAT 0.84 GLUC 149* MG 1.9 Recent Labs 03/31/21 0941 APTT 27.1 INR 1.0 Assessment/Plan Impression: Martinez Barton is a 55 year old White male who is POD# 1, admitted for a left fem-AKA pop bypass with in situ GSV with fem endarterectpmy. Plan: Neuro: Pain control: Sched tylenol, PRN oxy, dilaudid Cardiac: Vitals HDS. Home meds: continue lipitor, plavix, aspirin Respiratory: Incentive spirometry. Minimize use of supplemental O2. GI: Diet: Regular diet. Continue home PPI. FEN: IV fluids: LR at 75 cc/hr. HL (more content not included)... 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 On 04/01 he underwent a left Common femoral to knee popliteal bypass with in-situ vein graft. PAST MEDICAL HISTORY Diagnosis Date - Claudication ([facility]) 05/31/2017 - GERD (gastroesophageal reflux disease) 04/24/2012 - Migraines hasn't had since pinch nerve addressed in neck - Mixed hyperlipidemia 10/11/2017 - PAD (peripheral artery disease) ([facility]) 06/14/2017 - Sebaceous cyst 02/14/2011 - Smoker 05/31/2017 Started age 8 up 2 PPD, as of 09/2017 down to 2 cigs a day - Type 2 diabetes mellitus without complication, without long-term current use of insulin ([facility]) 03/24/2020 PAST SURGICAL HISTORY Procedure Laterality Date - COLONOSCOPY FLX DX W/COLLJ SPEC WHEN PFRMD 09/12/2010 Diverticulosis. [facility] inpt - COLONOSCOPY FLX DX W/COLLJ SPEC WHEN PFRMD 05/01/2016 Colonoscopy, repeat 5 yrs - ESOPHAGOGASTRODUODENOSCOPY TRANSORAL DIAGNOSTIC 09/12/2010 [facility] inpt/ H-pylori negative. Small hiatal hernia - ESOPHAGOGASTRODUODENOSCOPY TRANSORAL DIAGNOSTIC 05/01/2016 EGD - LAPAROSCOPIC CHOLECYSTECTOMY 04/14/2020 - PAST SURGICAL HISTORY OF Bilateral LE stenting FAMILY HISTORY Problem Relation Age of Onset - Asthma Father - Cancer Father lung - Emphysema Father - COPD Father - Hypertension Father - Breast Cancer Mother - Hypertension Mother - Breast Cancer Maternal Grandmother - Cancer Brother colon, age 42 Social History Tobacco Use - Smoking status: Current Every Day Smoker Packs/day: 0.50 Years: 48.00 Pack years: 24.00 Types: Cigarettes - Smokeless tobacco: Never Used Vaping Use - Vaping Use: Never used Substance Use Topics - Alcohol use: No - Drug use: No PRIOR TO ADMISSION MEDICATIONS @PTAMED@ ALLERGIES Allergen Reactions - Chantix [Vareniclin* Vomiting - Phenergan [Prometha* Swelling Pt states when taking in tablet form tongue and throat swelled. Pt reports he can take in in IV without reaction - Pletal [Cilostazol] GI Upset - Simvastatin Other: See Comments Bodyaches, flu-like sx - Tramadol Rash, GI Upset SICU OP Course: Admission Weight: Objective VITAL SIGNS Temp: 36.4 ?C (97.5 ?F) Pulse: 66 BP: 141/84 Resp: 18 SpO2: 100 % Cecilia Carmen Readings: Not applicable RESPIRATORY Mechanical Ventilation: No. Supplemental Oxygen: Yes. PHYSICAL EXAM Neuro: Follows commands Pulmonary: Clear to auscultation. Breath Sounds Equal: Yes Cardiovascular: Regular rhythm Abdomen: Soft Extremities: Edema- No Peripheral pulses- Present all extremities Wounds/Drsgs- Yes Presence of Pressure Ulcer No CXR Findings: Infusions: None Current Facility-Administered Medications Medication Dose Route Frequency - lidocaine 10 mg/mL (1 %) 1-2 mg injection (XYLOCAINE) 0.1-0.2 mL INTRADERMAL PRN - lactated ringers iv infusion 5-30 mL/hr INTRAVENOUS CONTINUOUS - acetaminophen 1,000 mg tab(s) (TYLENOL) 1,000 mg ORAL ONCE - heparin 5,000 Units in sodium chloride 0.9 % 500 mL for irrigation X (OR/PROCEDURE) PRN - NaCl 0.9% irrigation solution X (OR/PROCEDURE) PRN Patient Lines Assessed: A-Line: Site: Right radial, Day #: 0, Rewired: No, Fresh stick: Yes RECENT LABS Recent Labs 03/31/21 0941 INR 1.0 APTT 27.1 CULTURES: No need DATA: Diagnostic tests reviewed for today's visit: Most recent labs and imaging results. 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 On 04/01 he underwent a left Common femoral to knee popliteal bypass with in-situ vein graft. REASON FOR ICU ADMISSION: hemodynamic monitoring PROCEDURE: left Common femoral to knee popliteal bypass with in-situ vein graft. Seen and discussed on rounds with SICU staff: Dr. Oquendo Neuro: will keep neuro checks according to vascular protocol CV: Continue ICU monitoring Pulm: NC 2 L Renal: Will watch matt output GI: can have a diet as soon as he is awake enough Heme: Will monitor incision site for signs of bleeding, aspirin and plavix tomorrow, Lovenox tomorrow Fluid/Electrolyte/Nutrition: LR at 75 cc/hr, will dc when eating enough ID: continue perioper (more content not included)... [facility] 04-01-2021 Note HNO ID: [id number] Author: Cheryl Kuo APRN.PAROLE AGENT Service: ? Author Type: Nurse [employer] Type: Anesthesia Procedure Notes Filed: 04/01/2021 11:29 AM Note Text: ANESTHESIOLOGY PROCEDURE NOTE PIV General Information Patient Location: OR Preparation Sterility Preparation: hand hygiene performed prior to procedure Site Prep: Betadine and chlorhexidine Procedure Details Indication: need for IV access Needle Size/Type: 18 gauge angiocath Orientation: Right Location: Hand Imaging Guidance Used: No SIGNATURE: Cheryl Kuo APRN.PAROLE AGENT PATIENT NAME: Martinez Barton DATE: April 01, 2021 TIME: 11:28 AM CSN: [id number] [facility] 04-01-2021 Note HNO ID: [id number] Author: Cheryl Kuo APRN.PAROLE AGENT Service: ? Author Type: Nurse [employer] Type: Anesthesia Procedure Notes Filed: 04/01/2021 11:28 AM Note Text: ANESTHESIOLOGY PROCEDURE NOTE A-Line General Information Consent Obtained: Yes Indication: continuous blood pressure monitoring Staffing PAROLE AGENT: Cheryl Kuo APRN.PAROLE AGENT Performed by: NORA Preparation Sterility Preparation: sterile drape used during line insertion, skin prep agent completely dried prior to procedure Site Prep: Chlorhexidine Procedure Details Catheter Size: 20 G Catheter Length: 5.25 in Micropuncture Kit Used: No Guidewire Used: Yes Guidewire Removed Intact: YesLaterality: right Site: radial artery Ultrasound Guided: NoLine Secured: tape and occlusive biodressing Events Events: patient tolerated procedure well with no complications SIGNATURE: Cheryl Kuo APRN.PAROLE AGENT PATIENT NAME: Martinez Barton DATE: April 01, 2021 TIME: 11:28 AM CSN: [id number] [facility] 04-01-2021 Note HNO ID: [id number] Author: Cheryl Kuo APRN.PAROLE AGENT Service: ? Author Type: Nurse [employer] Type: Anesthesia Procedure Notes Filed: 04/01/2021 11:28 AM Note Text: ANESTHESIOLOGY PROCEDURE NOTE Airway General Information Procedure Start Time/Medication Administration: 04/01/2021 10:57 AM Patient location during procedure: OR Staffing PAROLE AGENT: Cheryl Kuo APRN.PAROLE AGENT Performed by: NORA Indications and Patient Condition Preoxygenated: yes Manual In-Line Stabilization: No Difficult Mask: No (with oral airway and 2 provider seal) Indications for airway management: anesthesia anesthesia circuit Method: sleep Cricoid Pressure: No Airway Accessory: oral airway Final Airway Details Final airway type: endotracheal airway Final Endotracheal Airway: ETT Cuffed: yes Successful intubation technique: direct laryngoscopy Endotracheal tube insertion site: oral Blade: Marr Blade size: #2 ETT size (mm): 7.0 Measured from: gums Measurement (cm): 21 Placement verified by: capnometry Cormack-Lehane Classification: grade I - full view of glottis Number of attempts at approach: 1 Failed airway: no Unrecognized esophageal intubation: no Airway not difficult SIGNATURE: Cheryl Kuo APRN.CRNA PATIENT NAME: Martinez Barton DATE: April 01, 2021 TIME: 11:27 AM CSN: [id number] [facility] 03-30-2021 Note HNO ID: [id number] Author: Anais Kim PA-C Service: ? Author Type: Physician Neuroscience Specialist Type: Progress Notes Filed: 03/30/2021 4:35 PM Note Text: HANDP from [facility] 02-03-2021 Note HNO ID: [id number] Author: NELSON RomeroMT Service: Radiology Author Type: Technologist Type: Progress Notes Filed: 02/03/2021 1:25 PM Note Text: RADIOLOGY SERVICE PROGRESS NOTE SERVICE DATE: 02/03/2021 SERVICE TIME: 1:24 PM PATIENT IDENTITY VERIFICATION COMPLETED USING TWO (2) STANDARD IDENTIFIERS: Name and Date of confirmed by patient verbally and Name and Date of confirmed by identification band FALL SCREENING: Has the patient had 2 falls in the last year or 1 fall with injury or currently using an Ambulatory Assistive Device (Walker, Cane, Wheelchair, Crutches, etc.)? No PATIENT GENDER DATA: .male ALLERGIES: Reviewed and unchanged MEDICATIONS REVIEWED: Not applicable PATIENT RELEVANT IMPLANT DATA REVIEWED: Not Applicable CREATININE: Creatinine Date Value Ref Range Status 11/02/2020 0.94 0.73 - 1.22 mg/dL Final 09/20/2020 1.00 0.73 - 1.22 mg/dL Final 03/23/2020 1.01 0.73 - 1.22 mg/dL Final eGFR-All Other Races Date Value Ref Range Status 11/02/2020 >60 . Final Comment: eGFR (Estimated GFR) Units of measure: mL/min/1.73 meters squared eGFR is derived from the reexpressed MDRD Study equation using the following parameters: serum creatinine, age, gender and race. The creatinine assay has been calibrated to be traceable to IDMS. An eGFR <60 mL/min/1.73m2 for >3 months is consistent with chronic kidney disease. Refer to KDOQI guidelines for clinical interpretation. In patients with unstable renal function, e.g. those with acute kidney injury, the eGFR may not accurately reflect actual GFR. eGFR- Date Value Ref Range Status 11/02/2020 >60 Final P.O.C.T. RESULTS: N/A February 03, [address] PERFORMED: No IV SITE: Ambulatory: A peripheral IV was started in the Right antecubital site with a Angio cath: 22 gauge. POST EXAM PIV STATUS: Discontinued PROCEDURE TYPE: NM Stress: 12.6mCi [id number] was administered IV for Rest Imaging at 12:05 by ELSA Romero. 31.8 mCi [id number] was administered IV for Stress Imaging at 13:18 by ELSA Romero. PATIENT DISCHARGED TO: Ambulatory patient, left NM department area. A Diagnostic radioactive procedure has taken place, with no further precautions necessary other than routine body substance precautions. More information regarding radiation safety can be found using this link: [email or web address] SIGNATURE: ELSA Romero PATIENT NAME: Martinez Barton DATE: February 03, 2021 TIME: 1:24 PM PAGER/CONTACT #: [facility] 04-14-2020 Note HNO ID: [id number] Author: Norm Bowen (Aa) Service: Anesthesiology Author Type: Solar Sales Energy Advisor Type: Anesthesia Procedure Notes Filed: 04/14/2020 12:53 PM Note Text: ANESTHESIOLOGY PROCEDURE NOTE Airway General Information Procedure Start Time/Medication Administration: 04/14/2020 12:40 PM Patient location during procedure: OR Timeout Performed Pre-procedure: timeout performed Consent Obtained: Yes Patient identity confirmed: arm band, care steam cleaner and patient Staffing CAA: Norm Bowen (Aa) Performed by: JARVIS Indications and Patient Condition Preoxygenated: yes Patient position: sniffing Manual In-Line Stabilization: Yes Difficult Mask: No Indications for airway management: anesthesia anesthesia circuit Method: asleep Cricoid Pressure: No Final Airway Details Final airway type: endotracheal airway Final Endotracheal Airway: ETT Cuffed: yes Successful intubation technique: direct laryngoscopy Endotracheal tube insertion site: oral Blade: Jun Blade size: #4 ETT size (mm): 7.5 Measured from: gums Measurement (cm): 22 Placement verified by: chest auscultation and capnometry Cormack-Lehane Classification: grade I - full view of glottis Number of attempts at approach: 1 SIGNATURE: GLO Gupta PATIENT NAME: Martinez Barton DATE: April 14, 2020 TIME: 12:52 PM CSN: [id number] [facility] documented as of this encounter (statuses as of 05/11/2021) [facility]03-03-2021 History of Past illness Narrative* Problem Noted Date Resolved Date 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 documented as of this encounter (statuses as of 05/16/2021) [facility]03-03-2021 History of Past illness Narrative* Problem Noted Date Resolved Date 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 documented as of this encounter (statuses as of 07/15/2021) [facility]03-03-2021 History of Past illness Narrative* Problem Noted Date Resolved Date 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 documented as of this encounter (statuses as of 08/10/2021) [facility]03-03-2021 History of Past illness Narrative* Problem Noted Date Resolved Date 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 documented as of this encounter (statuses as of 10/04/2021) [facility]03-03-2021 History of Past illness Narrative* Problem Noted Date Resolved Date 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 documented as of this encounter (statuses as of 10/04/2021) [address]-2021 History of Past illness Narrative* Problem Noted Date Resolved Date 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 documented as of this encounter (statuses as of 10/10/2021) [address]-2021 History of Past illness Narrative* Problem Noted Date Resolved Date 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 documented as of this encounter (statuses as of 10/21/2021) [address]-2021 History of Past illness Narrative* Problem Noted Date Resolved Date 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 documented as of this encounter (statuses as of 11/02/2021) [facility]-03[facility]2021 History of Past illness Narrative* Problem Noted Date Resolved Date 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 documented as of this encounter (statuses as of 03/16/2022) [facility]2021 History of Past illness Narrative* Problem Noted Date Resolved Date 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 documented as of this encounter (statuses as of 03/16/2022) [facility]21 History of Past illness Narrative* Problem Noted Date Resolved Date 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 documented as of this encounter (statuses as of 03/20/2022) [facility]2021 History of Past illness Narrative* Problem Noted Date Resolved Date 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 documented as of this encounter (statuses as of 04/05/2022) [address]-2021 History of Past illness Narrative* Problem Noted Date Resolved Date 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 documented as of this encounter (statuses as of 04/06/2022) [facility]2021 History of Past illness Narrative* Problem Noted Date Resolved Date 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 documented as of this encounter (statuses as of 04/06/2022) [address]-2021 History of Past illness Narrative* Problem Noted Date Resolved Date 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 documented as of this encounter (statuses as of 04/07/2022) [address]-2021 History of Past illness Narrative* Problem Noted Date Resolved Date 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 documented as of this encounter (statuses as of 04/09/2022) [facility]21 History of Past illness Narrative* Problem Noted Date Resolved Date 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 documented as of this encounter (statuses as of 06/06/2022) [facility]21 History of Past illness Narrative* Problem Noted Date Diagnosed Date Resolved Date 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/2020 documented as of this encounter (statuses as of 01/12/2023) [facility] note* Diagnosis PAD (peripheral artery disease) (HCC)- Primary Peripheral vascular disease, unspecified documented in this encounter [facility] note* Diagnosis PAD (peripheral artery disease) (HCC)- Primary Peripheral vascular disease, unspecified Smoker Tobacco use disorder Mixed hyperlipidemia documented in this encounter [facility] note* Diagnosis Type 2 diabetes mellitus with diabetic peripheral angiopathy without gangrene, unspecified whether terminal block assembler insulin use ([facility])- Primary Onychomycosis Dermatophytosis of nail Pain in toe of left foot Pain in limb Pain in toe of right foot Pain in limb Peripheral arterial disease (HCC) Peripheral vascular disease, unspecified documented in this encounter [facility] note* Diagnosis Type 2 diabetes mellitus without complication, without long-term current use of insulin (HCC)- Primary Mixed hyperlipidemia Gastroesophageal reflux disease, unspecified whether esophagitis present Migraine without aura and without status migrainosus, not intractable Migraine without aura, without mention of intractable migraine without mention of status migrainosus PAD (peripheral artery disease) (HCC) Peripheral vascular disease, unspecified Smoker Tobacco use disorder Encounter for screening for lung cancer Screening for colon cancer Special screening for malignant neoplasms, colon Medication management Encounter for long-term (current) use of other medications Screening for prostate cancer Special screening for malignant neoplasm of prostate documented in this encounter [facility] note* Diagnosis Family history of colon cancer- Primary Family history of malignant neoplasm of gastrointestinal tract Screening for colon cancer Special screening for malignant neoplasms, colon 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 Hernandez's esophagus History of Helicobacter pylori infection Personal history of other infectious and parasitic disease documented in this encounter [facility] note* Diagnosis Family history of colon cancer Family history of malignant neoplasm of gastrointestinal tract Dysphagia, unspecified type Hernandez's esophagus with dysplasia Hernandez's esophagus History of Helicobacter pylori infection Personal history of other infectious and parasitic disease documented in this encounter [facility] note* Diagnosis Chronic Helicobacter pylori gastritis- Primary 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 Hernandez's esophagus Tubular adenoma Benign neoplasm of unspecified site [facility]* Diagnosis Well adult exam- Primary Routine general medical examination at a health care facility Type 2 diabetes mellitus without complication, without long-term current use of insulin (HCC) Mixed hyperlipidemia Gastroesophageal reflux disease, unspecified whether esophagitis present PAD (peripheral artery disease) (HCC) Peripheral vascular disease, unspecified Smoker Tobacco use disorder documented in this encounter [facility]* Diagnosis Encounter for immunization- Primary Need for other specified prophylactic vaccination against single bacterial disease documented in this encounter [facility] note* Diagnosis Leukocytosis, unspecified type- Primary [facility] Diagnosis Sore throat- Primary Acute pharyngitis Nausea and vomiting, unspecified vomiting type Generalized abdominal pain Abdominal pain, generalized [facility] Diagnosis Lower abdominal pain- Primary Abdominal pain, other specified site Nausea and vomiting, unspecified vomiting type Body aches Generalized pain documented in this encounter [facility]* Diagnosis Lower abdominal pain Abdominal pain, other specified site documented in this encounter [facility]* Diagnosis Type 2 diabetes mellitus with diabetic peripheral angiopathy without gangrene, unspecified whether terminal block assembler insulin use ([facility])- Primary Tailor's bunion, unspecified laterality documented in this encounter [facility] note* Diagnosis Herpes zoster without complication- Primary Herpes zoster without mention of complication Pain of finger of left hand Pain in limb documented in this encounter [facility] for referral (narrative)* Outpatient Procedure (Routine) - Closed Specialty Diagnoses / Procedures Referred By Ahsan nolasco Referred To Contact [facility] Diagnoses Dysphagia, unspecified type Hernandez's esophagus with dysplasia History of Helicobacter pylori infection Procedures EGD DIAGNOSTIC ESOPHAGOGASTRODUODENOSCO PY TRANSORAL DIAGNOSTIC Soraya Hartman PA-C [address] [place] [address] [facility] [place] [address] [place] [address] Referral ID Status Reason Start Date Expiration Date V isits Requested Visits Authorized [id number] Closed Auto-Generate d Referral 10/04/2021 10/04/2022 1 1 * Outpatient Procedure (Routine) - Closed Specialty Diagnoses / Procedures Referred By Ahsan nolasco Referred To Contact [facility] Diagnoses Family history of colon cancer Procedures COLONOSCOPY SCREENING COLONOSCOPY FLX DX W/COLLJ SPEC WHEN PFRMD Soraya Hartman PA-C [address] [place] [address] [facility] [place] [address] [place] [id number] Referral ID Status Reason Start Date Expiration Date V isits Requested Visits Authorized [id number] Closed Auto-Generate d Referral 10/04/2021 10/04/2022 1 1 [facility] for referral (narrative)* Diagnostic Procedure Only (Routine) - Closed Specialty Diagnoses / Procedures Referred By Ahsan nolasco Referred To Contact XR IMAGING Diagnoses Pain of finger of left hand Procedures XR DIGIT GENERAL 3V FRONTAL/LAT/OBL LEFT RADEX FINGR MINIMUM 2 VIEWS Julisa Hernandez APRN.CNP [address] [place] [address] Xr Imaging [id number] Referral ID Status Reason Start Date Expiration Date V isits Requested Visits Authorized [id number] Closed Auto-Generate d Referral 01/12/2023 02/11/2024 1 1 [facility] for visit Narrative* Outpatient Procedure (Routine) - Closed Specialty Diagnoses / Procedures Referred By Ahsan nolasco Referred To Contact [facility] Diagnoses Dysphagia, unspecified type Hernandez's esophagus with dysplasia History of Helicobacter pylori infection Procedures EGD DIAGNOSTIC ESOPHAGOGASTRODUODENOSCO PY TRANSORAL DIAGNOSTIC Soraya Hartman PA-C [address] [place] [address] [facility] [address] [address] Referral ID Status Reason Start Date Expiration Date V isits Requested Visits Authorized [id number] Closed Auto-Generate d Referral 10/04/2021 10/04/2022 1 1 [facility] Summary Purpose Family History No Family History Records FoundNo Family History Records FoundNo Family History Records FoundNo Family History Records FoundNo Family History Records Found Advance Directives No Advanced Directives Records FoundDocuments on File Type Date Recorded Patient Card Hanger Expl anation Advance Directive(s) 03/24/2021 2:02 PM Advance Directive(s) 04/14/2020 12:12 PM Advance Directive(s) 04/12/2020 8:42 AM Advance Directive(s) 12/11/2017 10:40 PM Advance Directive(s) 12/05/2017 12:19 PM Advance Directive(s) 10/23/2017 4:07 PM Advance Directive(s) 05/01/2016 10:41 AM Reason for Referral Specialty Diagnoses / Procedures Referred By Contac t Referred To Contact General Surgery Diagnoses Screening for colon cancer Procedures CONSULT TO GENERAL SURGERY OFFICE/OUTPATIENT [facility] 60-74 MINUTES Mateo Denise MD [address] [place] [address] Referral ID Status Reason Start Date Expiration Date Visits Requested Visits Authorized [id number] Authorized PCP Requested Referral 10/03/2021 09/29/2022 1 1 Specialty Diagnoses / Procedures Referred By Contac t Referred To Contact Ophthalmology Diagnoses Type 2 diabetes mellitus without complication, without long-term current use of insulin (HCC) Procedures CONSULT TO OPHTHALMOLOGY OFFICE/OUTPATIENT [facility] 60-74 MINUTES Emily Kay PA-C [address] [place] [address] Referral ID Status Reason Start Date Expiration Date Visits Requested Visits Authorized [id number] Authorized PCP Requested Referral 03/16/2022 03/16/2023 1 1 Specialty Diagnoses / Procedures Referred By Contac t Referred To Contact CT IMAGING Diagnoses Lower abdominal pain Nausea and vomiting, unspecified vomiting type Procedures CT ABD/PEL W IVCON CT ABD & PELVIS W/CONTRAST Julisa Hernandez APRN.[facility] [address] [place] [address] Ct Imaging Referral ID Status Reason Start Date Expiration Date V isits Requested Visits Authorized [id number] Closed Auto-Generat ed Referral Patient Cleared - Admin/Chairm an/Director advise to proceed 02/12/2022 02/11/2023 1 1 Medications Administered Section Inactive Administered Medications - up to 3 most recent administrations Medication Order MAR Action Action Date Dose Rate Site benzocaine 20% 1 [place] (TOPEX) 1 [place], TOPICAL, DIRECTED, Starting on Ángela 10/20/21 at 0830, Until Ángela 10/20/21 at 1229, DOSING DIRECTED BY PHYSICIAN FOR PROCEDURAL SEDATION ONLY - Pharmaceutical Waste: Aerosol -, Intraprocedure Given 10/20/2021 8:09 AM EDT 5 Sprays diphenhydrAMINE 12.5-50 mg injection (BENADRYL) 12.5-50 mg, INTRAVENOUS, DIRECTED, Starting on Ángela 10/20/21 at 0830, Until Ángela 10/20/21 at 1229, DOSING DIRECTED BY PHYSICIAN FOR PROCEDURAL SEDATION ONLY, Intraprocedure Given 10/20/2021 8:12 AM EDT 50 mg fentaNYL 50 mcg/mL 25-100 mcg injection (SUBLIMAZE) 25-100 mcg, INTRAVENOUS, DIRECTED, Starting on Ángela 10/20/21 at 0830, Until Ángela 10/20/21 at 1229, DOSING DIRECTED BY PHYSICIAN FOR PROCEDURAL SEDATION ONLY, Intraprocedure Given 10/20/2021 8:24 AM EDT 50 mcg Additional Source Comments (unrecognized sect ion and content) No Status Records FoundNo Status Records FoundNo Status Records FoundNo Status Records FoundNo Status Records Found INFORMATION SOURCE (unrecogn ized section and content) DATE CREATED AUTHOR AUTHOR'S ORGANIZ ATION 04/04/2021 [facility] DATE CREATED AUTHOR AUTHOR'S ORGANIZ ATION 04/09/2021 [facility] DATE CREATED AUTHOR AUTHOR'S ORGANIZ ATION 04/13/2021 [facility] DATE CREATED AUTHOR AUTHOR'S ORGANIZ ATION 02/08/2023 [facility] Source Comments (unrecognize d section and content) In the event this informatio n is protected by the Federal Confidentiality of Alcohol and Drug Abuse Patient Records regulations: The Federal rules restrict any use of the information to criminally investigate or prosecute any alcohol or drug abuse patient.[facility] event this information is protected by the Federal Confidentiality of Alcohol and Drug Abuse Patient Records regulations: The Federal rules restrict any use of the information to criminally investigate or prosecute any alcohol or drug abuse patient.[facility] the event this information is protected by the Federal Confidentiality of Alcohol and Drug Abuse Patient Records regulations: The Federal rules restrict any use of the information to criminally investigate or prosecute any alcohol or drug abuse patient.[facility] the event this information is protected by the Federal Confidentiality of Alcohol and Drug Abuse Patient Records regulations: The Federal rules restrict any use of the information to criminally investigate or prosecute any alcohol or drug abuse patient.[facility] the event this information is protected by the Federal Confidentiality of Alcohol and Drug Abuse Patient Records regulations: The Federal rules restrict any use of the information to criminally investigate or prosecute any alcohol or drug abuse patient.[facility] the event this information is protected by the Federal Confidentiality of Alcohol and Drug Abuse Patient Records regulations: The Federal rules restrict any use of the information to criminally investigate or prosecute any alcohol or drug abuse patient.[facility] the event this information is protected by the Federal Confidentiality of Alcohol and Drug Abuse Patient Records regulations: The Federal rules restrict any use of the information to criminally investigate or prosecute any alcohol or drug abuse patient.[facility] the event this information is protected by the Federal Confidentiality of Alcohol and Drug Abuse Patient Records regulations: The Federal rules restrict any use of the information to criminally investigate or prosecute any alcohol or drug abuse patient.[facility] the event this information is protected by the Federal Confidentiality of Alcohol and Drug Abuse Patient Records regulations: The Federal rules restrict any use of the information to criminally investigate or prosecute any alcohol or drug abuse patient.[facility] the event this information is protected by the Federal Confidentiality of Alcohol and Drug Abuse Patient Records regulations: The Federal rules restrict any use of the information to criminally investigate or prosecute any alcohol or drug abuse patient.[facility] the event this information is protected by the Federal Confidentiality of Alcohol and Drug Abuse Patient Records regulations: The Federal rules restrict any use of the information to criminally investigate or prosecute any alcohol or drug abuse patient.[facility] the event this information is protected by the Federal Confidentiality of Alcohol and Drug Abuse Patient Records regulations: The Federal rules restrict any use of the information to criminally investigate or prosecute any alcohol or drug abuse patient.[facility] the event this information is protected by the Federal Confidentiality of Alcohol and Drug Abuse Patient Records regulations: The Federal rules restrict any use of the information to criminally investigate or prosecute any alcohol or drug abuse patient.[facility] the event this information is protected by the Federal Confidentiality of Alcohol and Drug Abuse Patient Records regulations: The Federal rules restrict any use of the information to criminally investigate or prosecute any alcohol or drug abuse patient.[facility] the event this information is protected by the Federal Confidentiality of Alcohol and Drug Abuse Patient Records regulations: The Federal rules restrict any use of the information to criminally investigate or prosecute any alcohol or drug abuse patient.[facility] the event this information is protected by the Federal Confidentiality of Alcohol and Drug Abuse Patient Records regulations: The Federal rules restrict any use of the information to criminally investigate or prosecute any alcohol or drug abuse patient.[facility] the event this information is protected by the Federal Confidentiality of Alcohol and Drug Abuse Patient Records regulations: The Federal rules restrict any use of the information to criminally investigate or prosecute any alcohol or drug abuse patient.[facility] the event this information is protected by the Federal Confidentiality of Alcohol and Drug Abuse Patient Records regulations: The Federal rules restrict any use of the information to criminally investigate or prosecute any alcohol or drug abuse patient.[facility] the event this information is protected by the Federal Confidentiality of Alcohol and Drug Abuse Patient Records regulations: The Federal rules restrict any use of the information to criminally investigate or prosecute any alcohol or drug abuse patient.[facility] Reason for Visit (unrecogniz ed section and content) Reason Comments Follow Up Reason Comments Follow Up Nail Care nail Care Reason Comments F/U 6 Month Reason Comments Results Reason Comments Consult colonoscopy Specialty Diagnoses / Procedures Referred By Contac t Referred To Contact General Surgery Diagnoses Screening for colon cancer Procedures CONSULT TO GENERAL SURGERY OFFICE/OUTPATIENT NEW HIGH MDM 60-74 MINUTES Mateo Denise MD [address] [place] [address] Referral ID Status Reason Start Date Expiration Date V isits Requested Visits Authorized [id number] Closed PCP Requested Referral 10/03/2021 09/29/2022 1 1 Reason Comments Follow Up EGD & Colonoscopy Reason Comments Yearly Exam Reason Comments Nausea & Vomiting Nausea, vomiting, ch ills and sore throat x 3 days Reason Comments Results, Lab Reason Comments urgent care f/up Started Sunday eveni ng started with vomiting and body aches chills, nausea stomach pain, was given zofran for nausea, has helped no vomiting since felt nausea but takes pill and is fine, drainage cough, taking mucinex Reason Comments Established Patient Follow Up Diabetic Foot Care Reason Comments lft side of back shingles Noticed 2 days ago Care Teams (unrecognized sec tion and content) Bulk Delivery Driver Relationship Specialty Start Date End Date Mateo Denise MD [address] [place] [address] PCP - General Family Practice [facility]21[facility]17 [facility] [address] [place] [address] Pharmacist Pharmacy 08/13/20 Bulk Delivery Driver Relationship Specialty Start Date End Date Mateo Denise MD [address] [place] [address] PCP - General Family Practice 11/21/17 [facility] [address] [facility] [place] [address] Pharmacist Pharmacy 08/13/20 Bulk Delivery Driver Relationship Specialty Start Date End Date Mateo Denise MD [address] [facility] [place] [address] PCP - General Family Practice 11/21/17 [facility] [address] [place] [address] Pharmacist Pharmacy 08/13/20 Bulk Delivery Driver Relationship Specialty Start Date End Date Mateo Denise MD [address] [place] [address] PCP - General Family Practice 11/21/17 [place], [facility] [address] [place] [address] Pharmacist Pharmacy 08/13/20 Bulk Delivery Driver Relationship Specialty Start Date End Date Mateo Denise MD [address] [place] [address] PCP - General Family Practice 11/21/17 [place], [facility] [address] [place] [address] Pharmacist Pharmacy 08/13/20 Bulk Delivery Driver Relationship Specialty Start Date End Date Mateo Denise MD [address] [place] [address] PCP - General Family Medicine 11/21/17 [place], [facility] [address] [place] [address] Pharmacist Pharmacy 08/13/20 Bulk Delivery Driver Relationship Specialty Start Date End Date Mateo Denise MD [address] [place] [address] PCP - General Family Medicine 11/21/17 [place], [facility] [address] [place] [address] Pharmacist Pharmacy 08/13/20 Bulk Delivery Driver Relationship Specialty Start Date End Date Mateo Denise MD [address] [place] [address] PCP - General Family Medicine 11/21/17 [place], [facility] [address] [place] [address] Pharmacist Pharmacy 08/13/20 Bulk Delivery Driver Relationship Specialty Start Date End Date Mateo Denise MD [address] [place] [address] PCP - General Family Medicine 11/21/17 [place], [facility] [address] [place] [address] Pharmacist Pharmacy 08/13/20 Bulk Delivery Driver Relationship Specialty Start Date End Date Mateo Denise MD [address] [place] [address] PCP - General Family Medicine 11/21/17 [place], [facility] [address] [place] [address] Pharmacist Pharmacy 08/13/20 Bulk Delivery Driver Relationship Specialty Start Date End Date Mateo Denise MD [address] [place] [address] PCP - General Family Medicine 11/21/17 [place], [facility] [address] [place] [address] Pharmacist Pharmacy 08/13/20 Bulk Delivery Driver Relationship Specialty Start Date End Date Mateo Denise MD [address] [place] [address] PCP - General Family Medicine 11/21/17 [place], [facility] [address] [place] [address] Pharmacist Pharmacy 08/13/20 Bulk Delivery Driver Relationship Specialty Start Date End Date Mateo Denise MD [address] [place] [address] PCP - General Family Medicine 11/21/17 [place] Ruth, [facility] [address] [place] [address] Pharmacist Pharmacy 08/13/20 Bulk Delivery Driver Relationship Specialty Start Date End Date Mateo Denise MD [address] [place], [place] [address] PCP - General Family Medicine 11/21/17 Ruth Yeh, [facility] [address] [place], [place] [id number] Pharmacist Pharmacy 08/13/20 FOR RECORDS PERTAINING TO PATIENTS WHO ARE OR HAVE BEEN ENROLLED IN A CHEMICAL DEPENDENCY/SUBSTANCEABUSE PROGRAM, SOME INFORMATION MAY BE OMITTED. This clinical summary was aggregated from multiple sources. Caution should be exercised in using it in the provision of clinical care. This summary normalizes information from multiple sources, and as a consequence, information in this document may materially change the coding, format and clinical context of patient data. In addition, data may be omitted in some cases. CLINICAL DECISIONS SHOULD BE BASED ON THE PRIMARY CLINICAL RECORDS. [employer] [facility] provides no warranty or guarantee of the accuracy or completeness of information in this document.
[2023-02-12] MEDS: Morphine 4 MG/ML Syringe IM (14:10)
[2023-02-12] MEDS: DiphenhydrAMINE 25 MG Capsule PO (14:10)
== END 2023-02-12 14:27 | disposition home or self-care (01) ==
PROVIDERS: Emergency Provider Emergency Medicine; PCP Family Medicine; Visit Provider Emergency Medicine
DX: M54.50 Low back pain, unspecified (principal); M54.10 Radiculopathy, site unspecified; M79.605 Pain in left leg; F17.210 Nicotine dependence, cigarettes, uncomplicated
CPT/HCPCS: 96372; 99282

== ENCOUNTER 2023-02-19 08:57 | Emergency (ER) | payer OTHER, SELFPAY ==
[2023-02-19 08:58] VITALS: BP 154/88; PULSE 76; RESP 16; TEMP 36.3; O2SAT 99; BMI 25.8
--- NOTE | 2023-02-19 09:23 | EX.ED.DYSGE1 ---
HPI History of Present Illness Chief Complaint: Rash Detail of Chief Complaint: Shingles history of Informant: patient Onset/Context/Timing Onset: Today and Hours Context: Gradual Onset Timing: Continuous Current Severity: Mild Maximum Severity: Mild Narrative Narrative: 57-year-old male history of diabetes also history of recurrent shingles numerous times he said he is prior had this 20 times. Last outbreak was in September. Patient states this morning when he woke up he had a rash and a small lower part of his back in the midline that is painful. Typical area an outbreak for his shingles. He denies any other complaints. States his blood sugar earlier this morning was 87. Denies any recent illness. Prior similar symptoms: Yes Recent Illness/Hospitalization: No [facility] Medical History Cholecystectomy planned Coronary artery disease GERD (gastroesophageal reflux disease) Hyperlipidemia Shingles Home Medications multivitamin (Daily Multiple tablet) 1 ea PO DAILY 12/07/16 [History Last Taken Unknown] aspirin 81 mg chewable tablet 81 mg PO DAILY@0800 03/16/20 [History Last Taken Unknown] atorvastatin 20 mg tablet 20 mg PO DAILY 05/10/20 [History Last Taken Unknown] clopidogrel 75 mg tablet 75 mg PO DAILY 05/10/20 [History Last Taken Unknown] omeprazole 20 mg capsule,delayed release 20 mg PO DAILY 07/16/20 [History Last Taken Unknown] glimepiride 2 mg tablet (Amaryl) 2 mg PO DAILY #30 tabs 07/17/20 [Rx Last Taken Unknown] metformin 500 mg tablet 500 mg PO BID #60 tabs 07/17/20 [Rx Last Taken Unknown] cephalexin 500 mg capsule 500 mg PO Q6 #40 CAPSULES 05/10/21 [Rx Last Taken Unknown] oxycodone-acetaminophen 5 mg-325 mg tablet 1 tab PO Q6H PRN PRN Pain 3 days #12 TABLETS 02/12/23 [Rx Last Taken Unknown] prednisone 20 mg tablet 60 mg (3 x 20 mg) PO DAILY #15 TABLETS 02/12/23 [Rx Last Taken Unknown] famciclovir 500 mg tablet 500 mg PO Q8H 7 days #21 tabs 02/19/23 [Rx Last Taken Unknown] oxycodone-acetaminophen 5 mg-325 mg tablet (Percocet) 1 tab PO Q6H PRN pain 3 days #8 tabs 02/19/23 [Rx Last Taken Unknown] prednisone 20 mg tablet 40 mg (2 x 20 mg) PO DAILY 7 days #14 tabs 02/19/23 [Rx Last Taken Unknown] Allergy/AdvReac Type Severity Reaction Status Date / Time simvastatin Allergy Other Verified 02/19/23 08:59 tramadol Allergy Rash Verified 02/19/23 08:59 varenicline Allergy Vomiting Verified 02/19/23 08:59 cilostazol AdvReac Abd Verified 02/19/23 08:59 cramps/diarrhea promethazine [From Phenergan] AdvReac Swelling Verified 02/19/23 08:59 Social History Smoking Status: Current every day smoker tobacco type: cigarettes ROS ROS ED ROS Narrative Painful rash lower back. Otherwise no recent illness. No fever. No nausea, vomiting or diarrhea. Review of Systems ROS Unobtainable: Denies due to encephalopathy Constitutional Constitutional ED: Denies chills or fever(s) Eyes Eyes: Denies blurry vision ENT ENT ED: Denies ear pain Cardiovascular Cardiovascular: Denies chest pain Respiratory/Chest Respiratory/Chest: Denies cough or dyspnea Gastrointestinal Gastrointestinal: Denies abdominal pain Genitourinary Genitourinary ED: Denies dysuria or hematuria Musculoskeletal Musculoskeletal: Denies arthralgias or back pain Integumentary Denies abscess or Abrasions Neurologic Neurologic: Denies headache(s) Psychiatric Psychiatric: Denies anxiety or depression Endocrine Endocrinology: Denies cold intolerance Hematologic/Lymphatic Hematologic/Lymphatic: Reports none Allergic/Immunologic Allergic/Immunologic ED: Denies mouth swelling, tongue swelling or urticaria EXAM Physical Exam Narrative Exam Narrative: 7-year-old male no acute distress. Vital signs stable afebrile. HEENT exam unremarkable. Neck nontender no JVD no lymphadenopathy. Lungs clear to auscultation bilaterally. Heart regular rhythm rate about 75 no murmur. Chest wall and ribs nontender. Abdomen soft nontender. Moving all 4 extremities. Normal strength. No edema. Nontender. Normal range of motion. Back is nontender the very lower part midline of his lumbar spine there is an area about 2 square inches of a rash that is raised and is vesicular and red consistent with shingles. It does not radiate to either side of his lower back or his abdomen. Does not look infected. There is no pus. No crepitance. Neurologically he is awake and alert. No focal motor deficits. Const Vital Signs: 02/19/23 08:58 Temperature 97.4 F L Temperature Source Temporal Pulse Rate 76 Respiratory Rate 16 Blood Pressure 154/88 H Blood Pressure Mean 110 Pulse Ox 99 Oxygen Delivery Method Room Air Positive well nourished and well developed; Negative for cachectic, contractures or unkempt General Appearance ED: well developed and NAD; Negative for unkempt, cachectic, contractures, cyanotic, diaphoretic or pallor Nutritional Appearance: Negative for cachectic HEENT Reports moist mucous membranes; Denies dry mucous membranes Negative for trauma or tenderness Mouth ED: No dry mucous membranes Mouth: No dry mucous membranes Eyes PERRL and EOMs intact bilaterally General Eye ED: Negative for pale conjunctiva or scleral icterus Neck no lymphadenopathy, supple and no JVD General: Negative for tenderness Lymph Lymphatic: Negative for other Chest Wall inspection of chest normal and palpation of chest normal Chest: Negative for other Resp normal respiratory effort and clear to auscultation bilaterally Effort and Inspection: Negative for retractions Auscultation: Negative for rales, rhonchi or wheezes Cardio regular rate, regular rhythm, S1 normal heart sound, S2 normal heart sound and no murmurs Palpation: Negative for palpable S3 or palpable S4 Rate: Negative for bradycardia or tachycardic Rhythm: Negative for abnormal rhythm GI normal to inspection, nondistended, normoactive bowel sounds, non-tender, non-distended and no masses Inspection: Negative for abdominal distention Auscultation: normoactive bowel sounds Palpation: soft; Negative for tender or guarding Back/Spine no CVA tenderness Back/Spine Narrative: Midline of the lower back there is a rash over the lumbar spine consistent with early shingles. General Back: Negative for CVA tenderness Cervical Spine: Negative for cervical spine tenderness Thoracic Spine / Upper Back: Negative for thoracic spinal tenderness Lumbar Spine / Lower Back: Negative for lumbar spinal tenderness Extremity normal to inspection General Extremety ED: Negative for edema or tenderness General Extremity: Negative for edema Neuro oriented x3 and CN's II-XII intact bilaterally Sensorium / Orientation: alert; Negative for orientation impaired, lethargic or stuporous Motor Exam: strength 5/5 throughout Psych mental status grossly normal Appearance: Negative for unkempt Attitude: No agitated Mood & Affect: Negative for depressed, anxious or tearful Skin No no rashes or lesions noted, no wounds and skin turgor normal General Skin Exam: elasticity normal; Negative for jaundice or pallor Lesions: No lesion noted Rashes: rashes noted Rash on the lower back consistent with shingles. Vesicular. About 2 square inches. Midline in the lower spine. vesicle; Negative for pustule, petechiae, plaque or excoriation Trauma: Negative for abrasion Wounds: Negative for wounds noted MDM MDM MDM Narrative Medical decision making narrative: 57-year-old male with recurrent shingles. With Famvir. Prednisone and watch his sugars closely. Limited Percocet for pain. Outpatient follow-up as needed. He requested a work excuse. History & Record Review Discussion w/independent historian: Patient Additional record(s) reviewed:: Prior inpatient record, Prior outpatient record, Prior ED visit and Prior labs Discharge Plan Triage Chief Complaint: Rash ED Provider: Popeye Hurtado Dx/Rx/DC Orders Clinical Impression: Shingles outbreak, History of diabetes mellitus Instructions: Shingles (Herpes Zoster) Prescriptions: New prednisone 20 mg tablet 40 mg PO DAILY 7 Days Qty: 14 0RF famciclovir 500 mg tablet 500 mg PO Q8H 7 Days Qty: 21 0RF oxycodone-acetaminophen [Percocet] 5-325 mg tablet 1 tab PO Q6H PRN (Reason: pain) 3 Days Qty: 8 0RF No Action multivitamin [Daily Multiple] 1 EACH tablet 1 ea PO DAILY aspirin 81 MG tablet,chewable 81 mg PO DAILY@0800 atorvastatin 20 MG tablet 20 mg PO DAILY clopidogrel 75 MG tablet 75 mg PO DAILY omeprazole 20 mg Capsule,Delayed Release(Dr/Ec) 20 mg PO DAILY glimepiride [Amaryl] 2 mg tablet 2 mg PO DAILY Qty: 30 0RF metformin 500 mg tablet 500 mg PO BID Qty: 60 0RF cephalexin [cephalexin] 500 MG capsule 500 mg PO Q6 Qty: 40 0RF prednisone 20 mg tablet 60 mg PO DAILY Qty: 15 0RF oxycodone-acetaminophen [oxycodone-acetaminophen] 5-325 mg tablet 1 tab PO Q6H PRN PRN (Reason: Pain) 3 Days Qty: 12 0RF Primary Care Provider: Mateo Brantley Referrals: Mateo Brantley MD [Primary Care Provider] - 1 Week if not improving Activity Restrictions/Additional Instructions: Call and follow-up with your doctor as needed. Famvir and antiviral for shingles. Prednisone 40 mg a day. Watch her blood sugars closely. Limited Percocet for pain. May also use limited Motrin. Disposition Disposition: Home, Self Care
--- OUTSIDE RECORDS SUMMARY | 2023-02-19 09:57 | XMS RPT_ITS | CCD ---
Author Name Unknown Address [address] [place] [address] Organization [facility] Care Team Providers Care Specification Writer Name Role Phone Mateo Denise MD Primary Care Provider [phone] [facility] JULISA HERNANDEZ Referring Unavailable MATEO [...] Translations: [CILOSTAZOL] Drug Allergy 11-04-2020 GI Upset [facility] Work Phone: (20 sources) Promethazine; Translations: [PROMETHAZINE HCL] Drug Allergy 08-06-2009 [facility] Work Phone: (20 sources) Simvastatin; Translations: [SIMVASTATIN] Drug Allergy 01-24-2011 Other: See Comments [facility] Work Phone: (20 sources) traMADol; Translations: [TRAMADOL] Drug Allergy 05-24-2012 Rash, GI Upset [facility] Work Phone: (20 sources) varenicline; Translations: [VARENICLINE] Drug Allergy 09-20-2017 Vomiting [facility] Work Phone: Medications Current Medications Medication [...] (20 sources) Patient encounter status; Translations: [Other watermaster (current) drug therapy] Onset: 10-11-2017 03-16-2021 Episodic Other aftercare (1 source) Other half-way (current) drug therapy; Translations: [Medication management] Onset: [...] 11:01-0500 Body temperature 97.9 [degF] Julisa David IN STORE REPRESENTATIVE.RECREATIONAL PROGRAMS DIRECTOR Work Phone: [facility] 01-12-2023 11:01-0500 Body weight 83.1 kg Julisa Hernandez IN STORE REPRESENTATIVE.RECREATIONAL PROGRAMS DIRECTOR Work Phone: [facility] 01-12-2023 11:01-0500 Diastolic blood pressure 58 mm[Hg] Julisa Hernandez IN STORE REPRESENTATIVE.RECREATIONAL PROGRAMS DIRECTOR Work Phone: [facility] 01-12-2023 11:01-0500 Heart rate 90 /min Julisa David IN STORE REPRESENTATIVE.RECREATIONAL PROGRAMS DIRECTOR Work Phone: [facility] 01-12-2023 11:01-0500 Respiratory rate 14 /min Julisa Hernandez IN STORE REPRESENTATIVE.RECREATIONAL PROGRAMS DIRECTOR Work Phone: [facility] 01-12-2023 11:01-0500 SaO2% (BldA) [Mass fraction] 94 % Julisa Hernandez IN STORE REPRESENTATIVE.RECREATIONAL PROGRAMS DIRECTOR Work Phone: [facility] 01-12-2023 11:01-0500 Systolic blood pressure 120 mm[Hg] Julisa Hernandez IN STORE REPRESENTATIVE.RECREATIONAL PROGRAMS DIRECTOR Work Phone: [facility] 04-06-2022 10:55-0500 Body temperature 98.01 [degF] Julisa Hernandez IN STORE REPRESENTATIVE.RECREATIONAL PROGRAMS DIRECTOR Work Phone: [facility] 04-06-2022 10:55-0500 Body weight 81.01 kg Julisa Hernandez IN STORE REPRESENTATIVE.RECREATIONAL PROGRAMS DIRECTOR Work Phone: [facility] 04-06-2022 10:55-0500 Diastolic blood pressure 60 mm[Hg] Julisa Hernandez IN STORE REPRESENTATIVE.RECREATIONAL PROGRAMS DIRECTOR Work Phone: [facility] 04-06-2022 10:55-0500 Heart rate 93 /min Julisa Hernandez IN STORE REPRESENTATIVE.RECREATIONAL PROGRAMS DIRECTOR Work Phone: [facility] 04-06-2022 10:55-0500 Respiratory rate 16 /min Julisa Hernandez IN STORE REPRESENTATIVE.RECREATIONAL PROGRAMS DIRECTOR Work Phone: [facility] 04-06-2022 10:55-0500 SaO2% (BldA) [Mass fraction] 98 % Julisa Hernandez IN STORE REPRESENTATIVE.RECREATIONAL PROGRAMS DIRECTOR Work Phone: [facility] 04-06-2022 10:55-0500 Systolic blood pressure 110 mm[Hg] Julisa Hernandez IN STORE REPRESENTATIVE.RECREATIONAL PROGRAMS DIRECTOR Work Phone: [facility] 04-05-2022 11:42-0500 Body temperature 97.9 [degF] Kisha Krishnamurthy PA-C Work Phone: [facility] 04-05-2022 11:42-0500 Body weight 81.74 kg Kisha Krishnamurthy PA-C Work Phone: [facility] 04-05-2022 11:42-0500 Diastolic blood pressure 82 mm[Hg] Kisha Athy PA-C Work Phone: [facility] 04-05-2022 11:42-0500 Heart rate 87 /min Kisha Athy PA-C Work Phone: [facility] 04-05-2022 11:42-0500 Respiratory rate 18 /min Kisha Athy PA-C Work Phone: [facility] 04-05-2022 11:42-0500 SaO2% (BldA) [Mass fraction] 96 % Kisha Athy PA-C Work Phone: [facility] 04-05-2022 11:42-0500 Systolic blood pressure 118 mm[Hg] Kisha Athy PA-C Work Phone: [facility] 03-16-2022 06:56-0500 Body height 181 cm Emily Kay PA-C Work Phone: [facility] 03-16-2022 06:56-0500 Body weight 80.02 kg Emily Kay PA-C Work Phone: [facility] 03-16-2022 06:56-0500 Diastolic blood pressure 78 mm[Hg] Emily Kay PA-C Work Phone: [facility] 03-16-2022 06:56-0500 Heart rate 83 /min Emily Kay PA-C Work Phone: [facility] 03-16-2022 06:56-0500 Respiratory rate 16 /min Emily Kay PA-C Work Phone: [facility] 03-16-2022 06:56-0500 SaO2% (BldA) [Mass fraction] 94 % Emily Kay PA-C Work Phone: [facility] 03-16-2022 06:56-0500 Systolic blood pressure 132 mm[Hg] Emily Kay PA-C Work Phone: [facility] 11-02-2021 08:51-0400 Body temperature 97.59 [degF] Soraya Aplin PA-C Work Phone: [facility] 11-02-2021 08:51-0400 Diastolic blood pressure 78 mm[Hg] Soraya Minnie PA-C Work Phone: [facility] 11-02-2021 08:51-0400 Heart rate 76 /min Soraya Aplin PA-C Work Phone: [facility] 11-02-2021 08:51-0400 SaO2% (BldA) [Mass fraction] 96 % Soraya Aplin PA-C Work Phone: [facility] 11-02-2021 08:51-0400 Systolic blood pressure 122 mm[Hg] Soraya Minnie PA-C Work Phone: [facility] 10-20-2021 09:20-0400 Diastolic blood pressure 67 mm[Hg] Heber Eubanks MD Work Phone: [facility] 10-20-2021 09:20-0400 Heart rate 71 /min Heber Eubanks MD Work Phone: [facility] 10-20-2021 09:20-0400 Respiratory rate 16 /min Heber Eubanks MD Work Phone: [facility] 10-20-2021 09:20-0400 SaO2% (BldA) [Mass fraction] 93 % Heber Eubanks MD Work Phone: [facility] 10-20-2021 09:20-0400 Systolic blood pressure 108 mm[Hg] Heber Eubanks MD Work Phone: [facility] 10-20-2021 07:34-0400 Body temperature 97 [degF] Hebre Eubanks MD Work Phone: [facility] 10-04-2021 09:25-0400 Body height 180.3 cm Soraya Minnie PA-C Work Phone: [facility] 10-04-2021 09:25-0400 Body temperature 96.91 [degF] Soraya Minnie PA-C Work Phone: [facility] 10-04-2021 09:25-0400 Body weight 82.56 kg Soraay Minnie PA-C Work Phone: [facility] 10-04-2021 09:25-0400 Diastolic blood pressure 82 mm[Hg] Soraya Minnie PA-C Work Phone: [facility] 10-04-2021 09:25-0400 Heart rate 82 /min Soraya Minnie PA-C Work Phone: [facility] 10-04-2021 09:25-0400 SaO2% (BldA) [Mass fraction] 99 % Soraya Aplin PA-C Work Phone: [facility] 10-04-2021 09:25-0400 Systolic blood pressure 138 mm[Hg] Soraya Minnie PA-C Work Phone: [facility] 10-03-2021 09:35-0400 Body weight 82.56 kg Mateo Denise MD Work Phone: [facility] 10-03-2021 09:35-0400 Diastolic blood pressure 80 mm[Hg] Mateo Denise MD Work Phone: [facility] 10-03-2021 09:35-0400 Heart rate 72 /min Mateo Denise MD Work Phone: [facility] 10-03-2021 09:35-0400 Respiratory rate 14 /min Mateo Denise MD Work Phone: [facility] 10-03-2021 09:35-0400 Systolic blood pressure 118 mm[Hg] Mateo Denise MD Work Phone: [facility] 07-15-2021 10:41-0400 Body weight 77.56 kg Nneka Tony IN STORE REPRESENTATIVE.RECREATIONAL PROGRAMS DIRECTOR Work Phone: [facility] 07-15-2021 10:41-0400 Diastolic blood pressure 86 mm[Hg] Nneka Tony IN STORE REPRESENTATIVE.RECREATIONAL PROGRAMS DIRECTOR Work Phone: [facility] 07-15-2021 10:41-0400 Heart rate 70 /min Nneka Tony IN STORE REPRESENTATIVE.RECREATIONAL PROGRAMS DIRECTOR Work Phone: [facility] 07-15-2021 10:41-0400 Systolic blood pressure 145 mm[Hg] Nneka Matthewsper IN STORE REPRESENTATIVE.RECREATIONAL PROGRAMS DIRECTOR Work Phone: [facility] 05-16-2021 14:26-0400 Diastolic blood pressure 82 mm[Hg] Nena Perez MD Work Phone: [facility] 05-16-2021 14:26-0400 Heart rate 88 /min Nena Perez MD Work Phone: [facility] 05-16-2021 14:26-0400 Systolic blood pressure 144 mm[Hg] Nena Perez MD Work Phone: [facility] Encounters Encounter Date Encounter Type Care Provider Facility Start: 02-06-2023 End: 02-06-2023 ambulatory MATEO DENISE Facility:[facility] Start: 01-12-2023 End: 01-12-2023 ambulatory JULISA HERNANDEZ Facility:[facility] Start: 01-12-2023 End: 01-12-2023 Patient encounter procedure Julisa Ehrnandez IN STORE REPRESENTATIVE.RECREATIONAL PROGRAMS DIRECTOR Work Phone: [facility] [place] Procedures Date Procedure Procedure Detail Performing Clinician [...] (3 - PPSV23 if available, else PCV20) [facility] Start: 09-21-2028 PNEUMOCOCCAL (3 - PP SV23 or PCV20) PNEUMOCOCCAL (3 - PPSV23 or PCV20) [facility] Start: 09-21-2028 Pneumococcal vaccination Pneum ococcal Vaccine (3 - PPSV23 or PCV20) [facility] Start: 10-12-2027 Urine microalbumin profile [facility] Start: 03-16-2027 PROSTATE CANCER SCRE ENING DISCUSSION PROSTATE CANCER SCREENING DISCUSSION [facility] Start: 10-20-2026 Colonoscopy COLONOSCOPY [facility] Start: 10-20-2026 COLORECTAL CANCER SCREENING COLORECTAL CANCER SCREENING [facility] Start: 03-23-2026 PROSTATE CANCER SCRE ENING DISCUSSION PROSTATE CANCER SCREENING DISCUSSION [facility] Start: 01-13-2024 Annual PCP Team Express Clerk juana Disease Visit Annual PCP Team Chronic Disease Visit [facility] Start: 01-13-2024 Covid-19 Vaccine () Covid-19 Vaccine () [facility] Immunizations Immunization Date Immunization Notes Care Provider Fa karlenety 03-16-2021 pneumococcal conjuga te vaccine, 13 valent Nena Perez MD Work Phone: [facility] 02-17-2021 zoster vaccine recombinant Nena Perez MD Work Phone: [facility] Work Phone: 12-27-2020 influenza, seasonal, injectable Nena Perez MD Work Phone: [facility] Work Phone: 12-27-2020 influenza virus vacc ine, unspecified formulation Julisa Hernandez IN STORE REPRESENTATIVE.RECREATIONAL PROGRAMS DIRECTOR Work Phone: [facility] 05-14-2020 COVID-19 vaccine, ag e 12+ yr ([facility]) Nena Perez MD Work Phone: [facility] Work Phone: 12-12-2017 influenza, injectabl e, quadrivalent, preservative free Nena Perez MD Work Phone: [facility] 10-11-2017 tetanus toxoid, redu aure diphtheria toxoid, and acellular pertussis vaccine, adsorbed Nena Perez MD Work Phone: [facility] 10-09-2013 pneumococcal polysaccharide vaccine, 23 valent Nena Perez MD Work Phone: [facility] 06-12-2006 tetanus toxoid, redu aure diphtheria toxoid, and acellular pertussis vaccine, adsorbed Nena Perez MD Work Phone: [facility] Work Phone: Payers Date Payer Category Payer Private Health Insurance [employer] A ETNA POS [id number] 2022-Present [phone] [address] [place] [address] POS [id number] 2022 Private Health Insurance [id number] 2020 Unknown [employer] PPO [id number] 2020-Present [phone] [address] [place] [address] PPO [id number] 2020 Unknown [employer] PPO [id number] 2020-Present [phone] [address] [place] [address] PPO [id number] 2020 Unknown [id number] Social History Date Type Detail Facility Start: 10-03-2021 End: 03-16-2022 Tobacco smoking status DEIS Smokes tobacco daily [facility] History of tobacco use Cigarette Smoker [facility] Start: 05-05-2021 End: 01-12-2023 Alcohol intake Current non-drinker of alcohol (finding) [facility] Start: 03-16-2020 End: 10-03-2021 History SDOH Alcohol Frequency 1 [facility] Start: 03-16-2020 End: 10-03-2021 History SDOH Social Connections Phone 5 [facility] Start: 03-16-2020 End: 10-03-2021 History SDOH Social Connections Taoist 98 [facility] Start: 03-16-2020 End: 10-03-2021 History SDOH Social Connections Membership 2 [facility] Start: 03-16-2020 End: 10-03-2021 History SDOH Social Connections Living 3 [facility] Start: 03-16-2020 End: 10-03-2021 History SDOH Physical Activity DPW 7 [facility] Start: 03-16-2020 End: 10-03-2021 Education 12 [facility] Start: 1965 Sex Assigned At Male C [facility] Start: 04-25-2021 End: 11-02-2021 Exposure to SARS-CoV-2 (event) Not sure [facility] Work Phone: Start: 10-03-2021 End: 03-01-2022 Cigarettes smoked current (pack per day) - Reported 0.5 [facility] Start: 10-03-2021 End: 03-16-2022 Tobacco use and exposure Smokeless tobacco non-user [facility] Start: 10-03-2021 History SDOH Alcohol Std Drinks 0 [facility] Start: 10-20-2021 Tobacco Comment 3 cigs per day [facility] Start: 10-02-2021 End: 03-01-2022 Social connection and isolation panel [facility] How often do you att end religious or christian services? Patient refused [facility] Are you now , , , , never or living with a partner? [facility] How often to you hav e a drink containing alcohol? Never [facility] Do you feel stress - tense, restless, nervous, or anxious, or unable to sleep at night because your mind is troubled all the time - these days [OSQ] Only a little [facility] (I/We) worried wheth er (my/our) food would run out before (I/we) got money to buy more. Never true [facility] In the past 12 month s, was there a time when you were not able to pay the mortgage or rent on time? No [facility] Start: 03-01-2020 Gender identity Identifies as male gender (finding) [facility] Start: 03-01-2020 Sexual orientation Heterosexual (eliezer owen) [facility] Medical Equipment Procedure Code Equipment Code Equipment Origin al Text Equipment Identifier Dates Start: 07-19-2020 Clinical Notes 04-14-2020 to 02-13-2023 Julisa Hernandez APRN.RECREATIONAL PROGRAMS DIRECTOR - 01/12/2023 10:51 AM ESTPatient InstructionsMattkelly Watsonke - 06/06/2022 8:43 AM Shailesh Barrera RN - 06/06/2022 8:38 AM Alondra Cruz MA - 04/05/2022 7:31 PM EST Note Date & Type Note Facility 02-13-2023 Note HNO ID: [id number] Author: Natasha Mckeon LPN Service: ? Author Type: LICENSED NURSE Type: Progress Notes Filed: 02/13/2023 2:01 PM Note Text: Scan on 02/12/2023 2:24 PM by Provider, JOVANY Ward: Consultation - Emergency Medicine [facility] 02-06-2023 Note HNO ID: [id number] Author: Kisha Krishnamurthy PA-C Service: ? Author Type: Physician Dining Car Waiter/Waitress Type: Progress Notes Filed: 02/06/2023 9:59 AM Note Text: This note was created using [employer]. Subjective Martinez Barton is a 57 year old male. HPI Presents with a chief complaint of left lower back pain radiating into his left leg over the past 2 days. States he just woke up with the pain. 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 [...] disease) (HCC) 06/14/2017 PAD (peripheral artery disease) ([facility]) 06/14/2017 Seeing Vascular [facility] S/P bilateral stents and Lt common femoral to above the knee bypass 03/2021. Sebaceous cyst 02/14/2011 Smoker 05/31/2017 Started age 8 up 2 PPD, as of 09/2017 down to 2 cigs a day Type 2 diabetes mellitus without complication, without long-term current use of insulin ([facility]) 03/24/2020 Current Outpatient Medications Medication Sig Dispense [...] DX W/COLLJ SPEC WHEN PFRMD 09/12/2010 Diverticulosis. [facility] inpt COLONOSCOPY FLX DX W/COLLJ SPEC WHEN PFRMD 05/01/2016 Colonoscopy, repeat 5 yrs EGD 10/20/2021 short-segment Hernandez's, per Dr. Eubanks repeat in 5 years ESOPHAGOGASTRODUODENOSCOPY TRANSORAL DIAGNOSTIC 09/12/2010 [facility] inpt/ H-pylori negative. Small hiatal hernia [...] lumbar back. Increased (more content not included)... [facility] 02-06-2023 Note HNO ID: [id number] Author: Anusha Livingston RT(R) Service: Radiology Author [...] RT Yasmeen(R) February 06, 2023 9:58 AM [facility] 01-12-2023 Note HNO ID: [id number] Author: Lyric Brady RT(R) Service: Radiology Author [...] RT Sophia(R) January 12, 2023 11:23 AM [facility] 01-12-2023 Note HNO ID: [id number] Author: Julisa Hernandez APRN.RECREATIONAL PROGRAMS DIRECTOR Service: ? Author Type: Nurse Practitioner Type: [...] History PAST MEDICAL HISTORY Diagnosis Date Claudication ([facility]) 05/31/2017 GERD (gastroesophageal reflux disease) 04/24/2012 History of Helicobacter pylori infection 11/03/202110/2021 Migraines hasn't had since pinch nerve addressed in neck Mixed hyperlipidemia 10/11/2017 PAD (peripheral artery disease) ([facility]) 06/14/2017 PAD (peripheral artery disease) ([facility]) 06/14/2017 Seeing [facility] S/P bilateral stents/2017 and Lt common femoral to above the knee bypass 03/2021. Sebaceous cyst 02/14/2011 Smoker 05/31/2017 Started age 8 up 2 PPD, as of 09/2017 down to 2 cigs a day Type 2 diabetes mellitus without complication, without long-term current use of insulin ([facility]) 03/24/2020 Previous Surgical History PAST SURGICAL HISTORY Procedure Laterality Date ABDOMINAL SURGERY HX COLONOSCOPY 10/20/2021 tubular adenoma, repeat in 5 years COLONOSCOPY FLX DX W/COLLJ SPEC WHEN PFRMD 09/12/2010 Diverticulosis. [facility] inpt COLONOSCOPY FLX DX W/COLLJ SPEC WHEN PFRMD 05/01/2016 Colonoscopy, repeat 5 yrs EGD 10/20/2021 short-segment Hernandez's, per Dr. Eubanks repeat in 5 years ESOPHAGOGASTRODUODENOSCOPY TRANSORAL DIAGNOSTIC 09/12/2010 [facility] inpt/ H-pylori negative. Small hiatal hernia [...] Cigarettes Smokeless to (more content not included)... [facility] 01-12-2023 History of Present illness Narrative Chief [...] History PAST MEDICAL HISTORY Diagnosis Date Claudication ([facility]) 05/31/2017 GERD (gastroesophageal reflux disease) 04/24/2012 History of Helicobacter pylori infection 11/03/202110/2021 Migraines hasn't had since pinch nerve addressed in neck Mixed hyperlipidemia 10/11/2017 PAD (peripheral artery disease) ([facility]) 06/14/2017 PAD (peripheral artery disease) ([facility]) 06/14/2017 Seeing [facility] S/P bilateral stents and Lt common femoral to above the knee bypass 03/2021. Sebaceous cyst 02/14/2011 Smoker 05/31/2017 Started age 8 up 2 PPD, as of 09/2017 down to 2 cigs a day Type 2 diabetes mellitus without complication, without long-term current use of insulin ([facility]) 03/24/2020 Previous Surgical History PAST SURGICAL HISTORY Procedure Laterality Date ABDOMINAL SURGERY HX COLONOSCOPY 10/20/2021 tubular adenoma, repeat in 5 years COLONOSCOPY FLX DX W/COLLJ SPEC WHEN PFRMD 09/12/2010 Diverticulosis. [facility] inpt COLONOSCOPY FLX DX W/COLLJ SPEC WHEN PFRMD 05/01/2016 Colonoscopy, repeat 5 yrs EGD 10/20/2021 short-segment Hernandez's, per Dr. Eubanks repeat in 5 years ESOPHAGOGASTRODUODENOSCOPY TRANSORAL DIAGNOSTIC 09/12/2010 [facility] inpt/ H-pylori negative. Small hiatal hernia [...] 09/13/2022 Influenza Vaccine(1) due on 10/13/2022 Covid-19 Vaccine( - 2022- season) due on 10/13/2022 Urine Albumin:Creatinine Ratio [...] Patient agreeable to treatment plan. Julisa Diane APRN.RECREATIONAL PROGRAMS DIRECTOR [address] [place] [address] documented in this encounter [facility] 10-02-2022 Note HNO ID: [id number] Author: Francine Martines APRN.RECREATIONAL PROGRAMS DIRECTOR Service: ? Author Type: Nurse Practitioner Type: [...] hyperlipidemia 10/11/2017 - PAD (peripheral artery disease) ([facility]) 06/14/2017 - PAD (peripheral artery disease) ([facility]) 06/14/2017 Seeing [facility] S/P bilateral stents and Lt common femoral to above the knee bypass 03/2021. - Sebaceous cyst 02/14/2011 - Smoker 05/31/2017 Started age 8 up 2 PPD, as of 09/2017 down to 2 cigs a day - Type 2 diabetes mellitus without complication, without long-term current use of insulin ([facility]) 03/24/2020 PAST SURGICAL HISTORY Procedure Laterality Date - ABDOMINAL SURGERY HX - COLONOSCOPY 10/20/2021 tubular adenoma, repeat in 5 years - COLONOSCOPY FLX DX W/COLLJ SPEC WHEN PFRMD 09/12/2010 Diverticulosis. [facility] inpt - COLONOSCOPY FLX DX W/COLLJ SPEC WHEN PFRMD 05/01/2016 Colonoscopy, repeat 5 yrs - EGD 10/20/2021 short-segment Hernandez's, per Dr. Eubanks repeat in 5 years - ESOPHAGOGASTRODUODENOSCOPY TRANSORAL DIAGNOSTIC 09/12/2010 [facility] inpt/ H-pylori negative. Small hiatal hernia [...] Discussed expected course of illness Francine Martines APRN.[facility] 06-06-2022 Note HNO ID: [id number] Author: David Yu Service: ? Author Type: [...] MD PAST MEDICAL HISTORY Diagnosis Date Claudication ([facility]) 05/31/2017 GERD (gastroesophageal reflux disease) 04/24/2012 History of Helicobacter pylori infection 11/03/202110/2021 Migraines hasn't had since pinch nerve addressed in neck Mixed hyperlipidemia 10/11/2017 PAD (peripheral artery disease) ([facility]) 06/14/2017 PAD (peripheral artery disease) ([facility]) 06/14/2017 Seeing [facility] S/P bilateral stents and Lt common femoral to above the knee bypass 03/2021. Sebaceous cyst 02/14/2011 Smoker 05/31/2017 Started age 8 up 2 PPD, as of 09/2017 down to 2 cigs a day Type 2 diabetes mellitus without complication, without long-term current use of insulin ([facility]) 03/24/2020 Current Outpatient Medications Medication Sig ondansetron [...] DX W/COLLJ SPEC WHEN PFRMD 09/12/2010 Diverticulosis. [facility] inpt COLONOSCOPY FLX DX W/COLLJ SPEC WHEN PFRMD 05/01/2016 Colonoscopy, repeat 5 yrs EGD 10/20/2021 short-segment Hernandez's, per Dr. Eubanks repeat in 5 years ESOPHAGOGASTRODUODENOSCOPY TRANSORAL DIAGNOSTIC 09/12/2010 [facility] inpt/ H-pylori negative. Small hiatal hernia [...] is a wel (more content not included)... [facility] 06-06-2022 Note HNO ID: [id number] Author: Soraya Barrera RN Service: ? Author Type: Registered Nurse Type: Progress Notes Filed: 06/06/2022 8:59 AM Note Text: Patient presents with: Left Foot - Established Patient, Follow Up, Diabetic Foot Care Right Foot - Established Patient, Follow Up, Diabetic Foot Care Patient presents for follow up diabetic foot check. Denies any pain or problems with his feet at this time. [facility] 06-06-2022 Instructions David Yu - 06/06/2022 8:48 [...] (or decreased sensation in your feet) a business reporting developer should always cut your toenails. Be Careful [...] Go to your health care provider or business reporting developer to treat these conditions. documented in this encounter [facility] 06-06-2022 History of Present illness Narrative [...] MD PAST MEDICAL HISTORY Diagnosis Date Claudication ([facility]) 05/31/2017 GERD (gastroesophageal reflux disease) 04/24/2012 History of Helicobacter pylori infection 11/03/202110/2021 Migraines hasn't had since pinch nerve addressed in neck Mixed hyperlipidemia 10/11/2017 PAD (peripheral artery disease) ([facility]) 06/14/2017 PAD (peripheral artery disease) ([facility]) 06/14/2017 Seeing V[facility] S/P bilateral stents and Lt common femoral to above the knee bypass 03/2021. Sebaceous cyst 02/14/2011 Smoker 05/31/2017 Started age 8 up 2 PPD, as of 09/2017 down to 2 cigs a day Type 2 diabetes mellitus without complication, without long-term current use of insulin ([facility]) 03/24/2020 Current Outpatient Medications Medication Sig ondansetron [...] DX W/COLLJ SPEC WHEN PFRMD 09/12/2010 Diverticulosis. [facility] inpt COLONOSCOPY FLX DX W/COLLJ SPEC WHEN PFRMD 05/01/2016 Colonoscopy, repeat 5 yrs EGD 10/20/2021 short-segment Hernandez's, per Dr. Eubanks repeat in 5 years ESOPHAGOGASTRODUODENOSCOPY TRANSORAL DIAGNOSTIC 09/12/2010 [facility] inpt/ H-pylori negative. Small hiatal hernia [...] diabetic peripheral angiopathy without gangrene, unspecified whether half-way insulin use (HCC) (primary encounter diagnosis) (M21.629) [...] at this time. documented in this encounter [facility] 04-07-2022 Miscellaneous Notes Pt informed, verbalized understanding Catherine Dos Santos The following approved medication requests have been transmitted electronically. Requested Prescriptions Signed Prescriptions Disp Refills dicyclomine (BENTYL) 10 mg capsule 120 capsule 0 Sig: Take 1 capsule by mouth before meals and at bedtime. Authorizing Provider: JULISA HERNANDEZ Ordering User: LUZ FITZGERALD APRN.CNP Pt informed, verbalized understanding. Kong monten[place]rot have Bentyl until sometime tomorrow. [facility] [place] Catherine Dos Santos Please call patient and let him know that COVID and flu testing was negative. CT of abd was also normal. Likely just a viral GI bug -- continue to push fluids and rest. Eat and drink normally. Thank you, Julisa Hernandez APRN.RECREATIONAL PROGRAMS DIRECTOR documented in this encounter [facility] 04-06-2022 Note HNO ID: [id number] Author: RT Jordan(R) Service: ? Author Type: Product Safety Associate Type: Progress Notes Filed: 04/06/2022 4:14 PM [...] DATE: April 06, 2022 TIME: 4:14 PM [facility] 04-06-2022 Note HNO ID: [id number] Author: Julisa Hernandez APRN.SAMMI Service: ? Author Type: Nurse Practitioner [...] History PAST MEDICAL HISTORY Diagnosis Date Claudication ([facility]) 05/31/2017 GERD (gastroesophageal reflux disease) 04/24/2012 History of Helicobacter pylori infection 11/03/202110/2021 Migraines hasn't had since pinch nerve addressed in neck Mixed hyperlipidemia 10/11/2017 PAD (peripheral artery disease) ([facility]) 06/14/2017 PAD (peripheral artery disease) ([facility]) 06/14/2017 Seeing [facility] S/P bilateral stents/2017 and Lt common femoral to above the knee bypass 03/2021. Sebaceous cyst 02/14/2011 Smoker 05/31/2017 Started age 8 up 2 PPD, as of 09/2017 down to 2 cigs a day Type 2 diabetes mellitus without complication, without long-term current use of insulin ([facility]) 03/24/2020 Previous Surgical History PAST SURGICAL HISTORY Procedure Laterality Date ABDOMINAL SURGERY HX COLONOSCOPY 10/20/2021 tubular adenoma, repeat in 5 years COLONOSCOPY FLX DX W/COLLJ SPEC WHEN PFRMD 09/12/2010 Diverticulosis. [facility] inpt COLONOSCOPY FLX DX W/COLLJ SPEC WHEN PFRMD 05/01/2016 Colonoscopy, repeat 5 yrs EGD 10/20/2021 short-segment Hernandez's, per Dr. Eubanks repeat in 5 years ESOPHAGOGASTRODUODENOSCOPY TRANSORAL DIAGNOSTIC 09/12/2010 [facility] inpt/ H-pylori negative. Small hiatal hernia [...] ondansetron orally disin (more content not included)... [facility] 04-06-2022 History of Present illness Narrative Chief [...] History PAST MEDICAL HISTORY Diagnosis Date Claudication ([facility]) 05/31/2017 GERD (gastroesophageal reflux disease) 04/24/2012 History of Helicobacter pylori infection 11/03/202110/2021 Migraines hasn't had since pinch nerve addressed in neck Mixed hyperlipidemia 10/11/2017 PAD (peripheral artery disease) ([facility]) 06/14/2017 PAD (peripheral artery disease) ([facility]) 06/14/2017 [facility] S/P bilateral stents and Lt common femoral to above the knee bypass 03/2021. Sebaceous cyst 02/14/2011 Smoker 05/31/2017 Started age 8 up 2 PPD, as of 09/2017 down to 2 cigs a day Type 2 diabetes mellitus without complication, without long-term current use of insulin ([facility]) 03/24/2020 Previous Surgical History PAST SURGICAL HISTORY Procedure Laterality Date ABDOMINAL SURGERY HX COLONOSCOPY 10/20/2021 tubular adenoma, repeat in 5 years COLONOSCOPY FLX DX W/COLLJ SPEC WHEN PFRMD 09/12/2010 Diverticulosis. [facility] inpt COLONOSCOPY FLX DX W/COLLJ SPEC WHEN PFRMD 05/01/2016 Colonoscopy, repeat 5 yrs EGD 10/20/2021 short-segment Hernandez's, per Dr. Eubanks repeat in 5 years ESOPHAGOGASTRODUODENOSCOPY TRANSORAL DIAGNOSTIC 09/12/2010 [facility] inpt/ H-pylori negative. Small hiatal hernia [...] - Work up with CT Abdomen - [place] low residue diet - COVID WITH FLUA+B, [...] Patient agreeable to treatment plan. Julisa Diane APRN.RECREATIONAL PROGRAMS DIRECTOR [address] [place] [address] documented in this encounter [facility] 04-05-2022 Note HNO ID: [id number] Author: Ramona Cruz MA Service: ? Author Type: Family Medicine Chair Type: Progress Notes Filed: 04/05/2022 9:37 PM Note Text: Scan on 04/05/2022 3:25 PM by External Provider: Antelmo Cruz MA [facility] 04-05-2022 History of Present illness Narrative Scan on 04/05/2022 3:25 PM by External Provider: Antelmo Cruz MA documented in this encounter [facility] 04-05-2022 Miscellaneous Notes Patient notified of results, verbalizes understanding of instructions. Pt declined at this time to schedule with PCP. Jessie Vernon LPN Please call and let patient know his labs do not appear different from previous labs. Would recommend a follow-up with PCP. documented in this encounter [facility] 04-05-2022 Note HNO ID: [id number] Author: Kisha Krishnamurthy PA-C Service: ? Author Type: Physician Dining Car Waiter/Waitress Type: Progress Notes Filed: 04/05/2022 12:16 PM Note Text: This note was created using [employer]. Subjective Martinez Barton is a 56 year [...] complication, without long-term current use of insulin ([facility]) 03/24/2020 Current Outpatient Medications Medication Sig Dispense [...] DX W/COLLJ SPEC WHEN PFRMD 09/12/2010 Diverticulosis. [facility] inpt COLONOSCOPY FLX DX W/COLLJ SPEC WHEN PFRMD 05/01/2016 Colonoscopy, repeat 5 yrs EGD 10/20/2021 short-segment Hernandez's, per Dr. Eubanks repeat in 5 years ESOPHAGOGASTRODUODENOSCOPY TRANSORAL DIAGNOSTIC 09/12/2010 [facility] inpt/ H-pylori negative. Small hiatal hernia [...] oropharyngeal erythema. Cardiovascu (more content not included)... [facility] 04-05-2022 History of Present illness Narrative This note was created using [employer]. Subjective Martinez Barton is a 56 year [...] negative. PAST MEDICAL HISTORY Diagnosis Date Claudication ([facility]) 05/31/2017 GERD (gastroesophageal reflux disease) 04/24/2012 History of Helicobacter pylori infection 11/03/202110/2021 Migraines hasn't had since pinch nerve addressed in neck Mixed hyperlipidemia 10/11/2017 PAD (peripheral artery disease) ([facility]) 06/14/2017 PAD (peripheral artery disease) ([facility]) 06/14/2017 [facility] S/P bilateral stents and Lt common femoral to above the knee bypass 03/2021. Sebaceous cyst 02/14/2011 Smoker 05/31/2017 Started age 8 up 2 PPD, as of 09/2017 down to 2 cigs a day Type 2 diabetes mellitus without complication, without long-term current use of insulin ([facility]) 03/24/2020 Current Outpatient Medications Medication Sig Dispense [...] DX W/COLLJ SPEC WHEN PFRMD 09/12/2010 Diverticulosis. [facility] inpt COLONOSCOPY FLX DX W/COLLJ SPEC WHEN PFRMD 05/01/2016 Colonoscopy, repeat 5 yrs EGD 10/20/2021 short-segment Hernandez's, per Dr. Eubanks repeat in 5 years ESOPHAGOGASTRODUODENOSCOPY TRANSORAL DIAGNOSTIC 09/12/2010 [facility] inpt/ H-pylori negative. Small hiatal hernia [...] Kisha Krishnamurthy PA-C documented in this encounter [facility] 03-20-2022 Miscellaneous Notes Spoke with patient [...] in a month. documented in this encounter [facility] 03-16-[address] Patient contacted and scheduled for 2nd shingrix vaccine. Ramona Cruz MA Let patient know that after he left I realized I forgot to ask him if he wanted his second shingrix vaccine. If this is something he would like, could schedule with nurse visit. Emily Kay PA-C documented in this encounter [facility] 03-16-2022 Note HNO ID: [id number] Author: Emily Kay PA-C Service: ? Author Type: Physician Dining Car Waiter/Waitress Type: Progress Notes Filed: 03/16/2022 7:32 AM [...] disease) (HCC) 06/14/2017 PAD (peripheral artery disease) ([facility]) 06/14/2017 [facility] S/P bilateral stents [...] DX W/COLLJ SPEC WHEN PFRMD 09/12/2010 Diverticulosis. [facility] inpt COLONOSCOPY FLX DX W/COLLJ SPEC WHEN PFRMD 05/01/2016 Colonoscopy, repeat 5 yrs EGD 10/20/2021 short-segment Hernandez's, per Dr. Eubanks repeat in 5 years ESOPHAGOGASTRODUODENOSCOPY TRANSORAL DIAGNOSTIC 09/12/2010 [facility] inpt/ H-pylori negative. Small hiatal hernia [...] rash, and itching (more content not included)... [facility] 03-16-2022 Instructions Emily Kay PA-C - 03/16/2022 7:12 AM EST Please stop to get your labs done today. Follow up in 6 months. documented in this encounter [facility] 03-16-2022 History of Present illness Narrative [...] Mixed hyperlipidemia 10/11/2017 PAD (peripheral artery disease) ([facility]) 06/14/2017 PAD (peripheral artery disease) ([facility]) 06/14/2017 [facility] S/P bilateral stents and Lt common femoral to above the knee bypass 03/2021. Sebaceous cyst 02/14/2011 Smoker 05/31/2017 Started age 8 up 2 PPD, as of 09/2017 down to 2 cigs a day Type 2 diabetes mellitus without complication, without long-term current use of insulin ([facility]) 03/24/2020 Previous Surgical History PAST SURGICAL HISTORY Procedure Laterality Date ABDOMINAL SURGERY HX COLONOSCOPY 10/20/2021 tubular adenoma, repeat in 5 years COLONOSCOPY FLX DX W/COLLJ SPEC WHEN PFRMD 09/12/2010 Diverticulosis. [facility] inpt COLONOSCOPY FLX DX W/COLLJ SPEC WHEN PFRMD 05/01/2016 Colonoscopy, repeat 5 yrs EGD 10/20/2021 short-segment Hernandze's, per Dr. Eubanks repeat in 5 years [...] Emily Kay PA-C documented in this encounter [facility] 11-02-2021 Instructions Soraya Hartman PA-C - [...] to your office visit today with the [facility]. INSTRUCTIONS FOLLOWING A POLYP FOUND [...] you should contact our office immediately @ [phone] and ask to be transferred to the General Surgery department. 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 Soraya Hartman PA-C documented in this encounter [facility] 10-20-2021 Nurse Note Pt still very sleepy. at bedside. Tolerating snack and drink well. Jessie Rowland RN Passing gas rectally. Jessie Rowland RN Pt received in PACU. Pt extremely drowsy, but arouses slightly. Appears comfortable. Abd soft and non distended. Jessie Rowland RN documented in this encounter [facility] 10-20-2021 History and physical note Images from the original note were not included. HISTORY AND PHYSICAL Martinez Barton 1965 REFERRING [...] HISTORY PAST MEDICAL HISTORY Diagnosis Date Claudication ([facility]) 05/31/2017 GERD (gastroesophageal reflux disease) 04/24/2012 Migraines hasn't had since pinch nerve addressed in neck Mixed hyperlipidemia 10/11/2017 PAD (peripheral artery disease) ([facility]) 06/14/2017 PAD (peripheral artery disease) ([facility]) 06/14/2017 [facility] S/P bilateral stents and Lt common femoral to above the knee bypass 03/2021. Sebaceous cyst 02/14/2011 Smoker 05/31/2017 Started age 8 up 2 PPD, as of 09/2017 down to 2 cigs a day Type 2 diabetes mellitus without complication, without long-term current use of insulin ([facility]) 03/24/2020 PAST SURGICAL HISTORY PAST SURGICAL HISTORY Procedure Laterality Date COLONOSCOPY FLX DX W/COLLJ SPEC WHEN PFRMD 09/12/2010 Diverticulosis. [facility] inpt COLONOSCOPY FLX DX W/COLLJ SPEC WHEN PFRMD 05/01/2016 Colonoscopy, repeat 5 yrs ESOPHAGOGASTRODUODENOSCOPY TRANSORAL DIAGNOSTIC 09/12/2010 [facility] inpt/ H-pylori negative. Small hiatal hernia ESOPHAGOGASTRODUODENOSCOPY [...] entered by the nurse and reviewed by mi Nursing Notes: Bree Drummond LPN 10/04/2021 9:27 [...] patient was offered a surgery/procedure at a [facility] facility. I have counseled the patient [...] TIME: 7:59 AM documented in this encounter [facility] 10-04-2021 History of Present illness Narrative [...] 05/02/2016 PAST MEDICAL HISTORY Diagnosis Date Claudication ([facility]) 05/31/2017 GERD (gastroesophageal reflux disease) 04/24/2012 Migraines hasn't had since pinch nerve addressed in neck Mixed hyperlipidemia 10/11/2017 PAD (peripheral artery disease) ([facility]) 06/14/2017 PAD (peripheral artery disease) ([facility]) 06/14/2017 Seeing [facility] S/P bilateral stents and Lt common femoral to above the knee bypass 03/2021. Sebaceous cyst 02/14/2011 Smoker 05/31/2017 Started age 8 up 2 PPD, as of 09/2017 down to 2 cigs a day Type 2 diabetes mellitus without complication, without long-term current use of insulin ([facility]) 03/24/2020 PAST SURGICAL HISTORY Procedure Laterality Date COLONOSCOPY FLX DX W/COLLJ SPEC WHEN PFRMD 09/12/2010 Diverticulosis. [facility] inpt COLONOSCOPY FLX DX W/COLLJ SPEC WHEN PFRMD 05/01/2016 Colonoscopy, repeat 5 yrs ESOPHAGOGASTRODUODENOSCOPY TRANSORAL DIAGNOSTIC 09/12/2010 [facility] inpt/ H-pylori negative. Small hiatal hernia [...] entered by the nurse and reviewed by mi Nursing Notes: Bree HodaSUAD 10/04/2021 9:27 AM Signed REVIEW OF SYSTEMS: [...] patient's last Mammogram screening? N/A Last Colonoscopy: 2016 Bree Drummond LPN I have confirmed and [...] patient was offered a surgery/procedure at a [facility] facility. I have counseled the patient [...] Soraya Hartman PA-C documented in this encounter [facility] 10-04-2021 Nurse Note REVIEW OF SYSTEMS: [...] patient's last Mammogram screening? N/A Last Colonoscopy: 2016 Bree Drummond LPN documented in this encounter [facility] 10-04-2021 Miscellaneous Notes Patient was notified Tsering Mahoney Ma Let patient know UA, lipid panel, Liver functions and A1c were all ok. documented in this encounter [facility] 10-03-2021 Instructions Mateo Denise MD - 10/03/2021 10:14 AM EDT Please get labs and urine test done on or after 03/24/2022 prior to your next visit. documented in this encounter [facility] 10-03-2021 History of Present illness Narrative Chief [...] complication, without long-term current use of insulin ([facility]) 03/24/2020 Previous Surgical History PAST SURGICAL HISTORY Procedure Laterality Date COLONOSCOPY FLX DX W/COLLJ SPEC WHEN PFRMD 09/12/2010 Diverticulosis. [facility] inpt COLONOSCOPY FLX DX W/COLLJ SPEC WHEN PFRMD 05/01/2016 Colonoscopy, repeat 5 yrs ESOPHAGOGASTRODUODENOSCOPY TRANSORAL DIAGNOSTIC 09/12/2010 [facility] inpt/ H-pylori negative. Small hiatal hernia [...] Abs Lymph 1.00 - 4.00 k/uL 2.52 [place]% % 5.0 Abs [place] <0.87 k/uL 0.49 Eosin% % 3.2 Abs [...] Mateo Denise MD documented in this encounter [facility] 08-09-2021 History of Present illness Narrative [...] diabetic peripheral angiopathy without gangrene, unspecified whether half-way insulin use (HCC) (primary (B35.1) Onychomycosis (M79.675) [...] Up, nail Care documented in this encounter [facility] 08-09-2021 Instructions David Yu - 08/09/2021 [...] (or decreased sensation in your feet) a business reporting developer should always cut your toenails. Be Careful [...] Go to your health care provider or business reporting developer to treat these conditions. documented in this encounter [facility] 07-15-2021 History of Present illness Narrative [...] complication, without long-term current use of insulin ([facility]) 03/24/2020 PAST SURGICAL HISTORY Procedure Laterality Date COLONOSCOPY FLX DX W/COLLJ SPEC WHEN PFRMD 09/12/2010 Diverticulosis. [facility] inpt COLONOSCOPY FLX DX W/COLLJ SPEC WHEN PFRMD 05/01/2016 Colonoscopy, repeat 5 yrs ESOPHAGOGASTRODUODENOSCOPY TRANSORAL DIAGNOSTIC 09/12/2010 [facility] inpt/ H-pylori negative. Small hiatal hernia [...] Time spent: 40 documented in this encounter [facility] 05-16-2021 History of Present illness Narrative [...] more than 50% of this time was pruv-vh-wobp with patient. documented in this encounter [facility] 05-11-2021 Miscellaneous Notes Spoke with patients and confirmed appointment Scheduled patient for appointment with on 05/16/2021 left message for patient to call and confirm Images from the original note were not included. MD Dayana Dowd; Nena Perez MD; Seema Falk, CORBY; Brittnee Stroud, CORBY; Tavon Ramirez Steward/Stewardess Dining Room 6 hours ago (10:30 AM) Dr Perez [...] covering for Dr Perez Message text Martinez L Hacker called today. : 1965 Allergies: Chantix [Varenicline], Phenergan [Promethazine Hcl], Pletal [Cilostazol], Simvastatin, and Tramadol (home) [phone] (work) [phone] (cell) Reason for call: patient is to return to work on Sunday but needs a retrrn to work note stating he is not on light duty..... with no restrictions . Please upload the letter to patient's MyChart Patient last appointment: Visit date not found The patients preferred pharmacy has been captured for this encounter? no Dayana Nowak documented in this encounter [facility] 04-04-2021 Note HNO ID: [id number] Author: Clovis Wright MD Service: Vascular Surgery [...] -- 04/01/21 1630 activity - mobilize patient (wv,mn) VTE Prophylaxis: Needs to be revised ALLERGIES [...] lipitor, plavix, a (more content not included)... [facility] 04-03-2021 Note HNO ID: [id number] Author: Patti Sharma MD Service: Vascular Surgery [...] -- 04/01/21 1630 activity - mobilize patient (wv,mn) VTE Prophylaxis: Needs to be revised ALLERGIES [...] 0941 APTT 27.1 (more content not included)... [facility] 04-02-2021 Note HNO ID: [id number] Author: Willian Oquendo DO Service: Critical Care [...] Dose Route Frequency Last Action Ordered Stop 04/02/21899 aspirin, enteric coated 81 mg tab(s) 81 mg ORAL DAILY Ordered 04/01/21 162 -- 04/02/21899 clopidogrel 75 mg tab(s) (PLAVIX) 75 mg ORAL DAILY Ordered 04/01/211625 -- 04/02/21899 enoxaparin 40 mg injection (LOVENOX) (Surgical Risk Categories) 40 mg SUBCUTANEOUS EVERY 24 HOURS Ordered 04/01/211625 -- SIGNATURE: Lawrence Landry MD PATIENT NAME: Martinez Barton DATE: 04/02/2021 TIME: 7:49 AM [facility] STAFF PHYSICIAN NOTE OF PERSONAL INVOLVEMENT IN [...] impending respiratory failure (more content not included)... [facility] 04-02-2021 Note HNO ID: [id number] Author: Clovis Wright MD Service: Vascular Surgery [...] -- 04/01/21 1630 activity - mobilize patient (wv,oh) VTE Prophylaxis: Needs to be revised ALLERGIES [...] 75 cc/hr. HL (more content not included)... [facility] 04-01-2021 Note HNO ID: [id number] Author: Willian Oquendo DO Service: Critical Care [...] hyperlipidemia 10/11/2017 - PAD (peripheral artery disease) (HCC) 06/14/2017 - Sebaceous cyst 02/14/2011 - Smoker 05/31/2017 Started age 8 up 2 PPD, as of 09/2017 down to 2 cigs a day - Type 2 diabetes mellitus without complication, without long-term current use of insulin ([facility]) 03/24/2020 PAST SURGICAL HISTORY Procedure Laterality Date - COLONOSCOPY FLX DX W/COLLJ SPEC WHEN PFRMD 09/12/2010 Diverticulosis. [facility] inpt - COLONOSCOPY FLX DX W/COLLJ SPEC WHEN PFRMD 05/01/2016 Colonoscopy, repeat 5 yrs - ESOPHAGOGASTRODUODENOSCOPY TRANSORAL DIAGNOSTIC 09/12/2010 [facility] inpt/ H-pylori negative. Small hiatal hernia - [...] BP: 141/84 Resp: 18 SpO2: 100 % [place] Carmen Readings: Not applicable RESPIRATORY Mechanical Ventilation: [...] ID: continue perioper (more content not included)... [facility] 04-01-2021 Note HNO ID: [id number] Author: Cheryl Kuo APRN.FINE GRADER Service: ? Author Type: Nurse Manager Building Type: Anesthesia Procedure Notes Filed: 04/01/2021 11:29 AM Note Text: ANESTHESIOLOGY PROCEDURE NOTE PIV General Information Patient Location: OR Preparation Sterility Preparation: hand hygiene performed prior to procedure Site Prep: Betadine and chlorhexidine Procedure Details Indication: need for IV access Needle Size/Type: 18 gauge angiocath Orientation: Right Location: Hand Imaging Guidance Used: No SIGNATURE: Cheryl Kuo APRN.CRNA PATIENT NAME: Martinez Barton DATE: April 01, 2021 TIME: 11:28 AM CSN: [id number] [facility] 04-01-2021 Note HNO ID: [id number] Author: Cheryl Kuo APRN.FINE GRADER Service: ? Author Type: Nurse Manager Building Type: Anesthesia Procedure Notes Filed: 04/01/2021 11:28 AM Note Text: ANESTHESIOLOGY PROCEDURE NOTE A-Line General Information Consent Obtained: Yes Indication: continuous blood pressure monitoring Staffing FINE GRADER: Cheryl Kuo APRN.FINE GRADER Performed by: NORA Preparation Sterility Preparation: sterile [...] well with no complications SIGNATURE: Cheryl Kuo APRN.CRNA PATIENT NAME: Martinez Barton DATE: April 01, 2021 TIME: 11:28 AM CSN: [id number] [facility] 04-01-2021 Note HNO ID: [id number] Author: Cheryl Kuo APRN.FINE GRADER Service: ? Author Type: Nurse Manager Building Type: Anesthesia Procedure Notes Filed: 04/01/2021 11:28 AM Note Text: ANESTHESIOLOGY PROCEDURE NOTE Airway General Information Procedure Start Time/Medication Administration: 04/01/2021 10:57 AM Patient location during procedure: OR Staffing FINE GRADER: Cheryl Kuo APRN.FINE GRADER Performed by: NORA Indications and Patient Condition [...] April 01, 2021 TIME: 11:27 AM CSN: [id number] [facility] 03-30-2021 Note HNO ID: [id number] Author: Anais Kim PA-C Service: ? Author Type: Physician Dining Car Waiter/Waitress Type: Progress Notes Filed: 03/30/2021 4:35 PM Note Text: HANDP from [facility] 02-03-2021 Note HNO ID: [id number] Author: ELSA Romero Service: Radiology Author Type: Technologist Type: Progress [...] STATUS: Discontinued PROCEDURE TYPE: NM Stress: 12.6mCi [id number] was administered IV for Rest Imaging at 12:05 by ELSA Romero. 31.8 mCi [id number] was administered IV for Stress Imaging at 13:18 by ELSA Romero. PATIENT DISCHARGED TO: Ambulatory patient, left [place] department area. A Diagnostic radioactive procedure has taken place, with no further precautions necessary other than routine body substance precautions. More information regarding radiation safety can be found using this link: [email or web address] SIGNATURE: ELSA Romero PATIENT NAME: Martinez Barton DATE: February 03, 2021 TIME: 1:24 PM PAGER/CONTACT #: [facility] 04-14-2020 Note HNO ID: [id number] Author: Norm Bowen (Aa) Service: Anesthesiology Author Type: Global Position System Technician Type: Anesthesia Procedure Notes Filed: 04/14/2020 12:53 PM Note Text: ANESTHESIOLOGY PROCEDURE NOTE Airway General Information Procedure Start Time/Medication Administration: 04/14/2020 12:40 PM Patient location during procedure: OR Timeout Performed Pre-procedure: timeout performed Consent Obtained: Yes Patient identity confirmed: arm band, care produce team member and patient Staffing CAA: Norm Bowen (Aa) [...] April 14, 2020 TIME: 12:52 PM CSN: [id number] [facility] documented as of this encounter (statuses as of 05/11/2021) [facility] History of Past illness Narrative* Problem Noted Date Resolved Date 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 documented as of this encounter (statuses as of 05/16/2021) [facility] History of Past illness Narrative* Problem Noted Date Resolved Date 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 documented as of this encounter (statuses as of 07/15/2021) [facility] History of Past illness Narrative* Problem Noted Date Resolved Date 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 documented as of this encounter (statuses as of 08/10/2021) [facility] History of Past illness Narrative* Problem Noted Date Resolved Date 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 documented as of this encounter (statuses as of 10/04/2021) [facility] History of Past illness Narrative* Problem Noted Date Resolved Date 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 documented as of this encounter (statuses as of 10/04/2021) [facility] History of Past illness Narrative* Problem Noted Date Resolved Date 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 documented as of this encounter (statuses as of 10/10/2021) [address]03-2021 History of Past illness Narrative* Problem Noted Date Resolved Date 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 documented as of this encounter (statuses as of 10/21/2021) [address]03-2021 History of Past illness Narrative* Problem Noted Date Resolved Date 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 documented as of this encounter (statuses as of 11/02/2021) [address]03-2021 History of Past illness Narrative* Problem Noted Date Resolved Date 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 documented as of this encounter (statuses as of 03/16/2022) [address]03-2021 History of Past illness Narrative* Problem Noted Date Resolved Date 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 documented as of this encounter (statuses as of 03/16/2022) [address]03-2021 History of Past illness Narrative* Problem Noted Date Resolved Date 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 documented as of this encounter (statuses as of 03/20/2022) [facility] History of Past illness Narrative* Problem Noted Date Resolved Date 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 documented as of this encounter (statuses as of 04/05/2022) [address]03-2021 History of Past illness Narrative* Problem Noted Date Resolved Date 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 documented as of this encounter (statuses as of 04/06/2022) [address]03-2021 History of Past illness Narrative* Problem Noted Date Resolved Date 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 documented as of this encounter (statuses as of 04/06/2022) [address]03-2021 History of Past illness Narrative* Problem Noted Date Resolved Date 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 documented as of this encounter (statuses as of 04/07/2022) [address]-2021 History of Past illness Narrative* Problem Noted Date Resolved Date 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 documented as of this encounter (statuses as of 04/09/2022) [facility] History of Past illness Narrative* Problem Noted Date Resolved Date 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 documented as of this encounter (statuses as of 06/06/2022) [facility] History of Past illness Narrative* Problem Noted Date Diagnosed Date Resolved Date 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/2020 documented as of this encounter (statuses as of 01/12/2023) [facility] note* Diagnosis PAD (peripheral artery disease) (HCC)- Primary Peripheral vascular disease, unspecified [facility] Diagnosis PAD (peripheral artery disease) (HCC)- Primary Peripheral vascular disease, unspecified Smoker Tobacco use disorder Mixed hyperlipidemia [facility] this [facility]* Diagnosis Type 2 diabetes mellitus with diabetic peripheral angiopathy without gangrene, unspecified whether half-way insulin use ([facility])- Primary Onychomycosis Dermatophytosis of nail Pain in toe of left foot Pain in limb Pain in toe of right foot Pain in limb Peripheral arterial disease (HCC) Peripheral vascular disease, unspecified documented in this encounter [facility] note* Diagnosis Type 2 diabetes mellitus [...] neoplasm of prostate [facility]* Diagnosis Family history of colon cancer- Primary Family history of malignant neoplasm of gastrointestinal tract Screening for colon cancer Special screening for malignant neoplasms, colon 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 Hernandez's esophagus History of Helicobacter pylori infection Personal history of other infectious and parasitic disease documented in this encounter [facility] note* Diagnosis Family history of colon cancer Family history of malignant neoplasm of gastrointestinal tract Dysphagia, unspecified type Hernandez's esophagus with dysplasia Hernandez's esophagus History of Helicobacter pylori infection Personal history of other infectious and parasitic disease documented in this encounter [facility] note* Diagnosis Chronic Helicobacter pylori gastritis- Primary 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 Hernandez's esophagus Tubular adenoma Benign neoplasm of unspecified site documented in this encounter [facility] note* Diagnosis Well adult exam- Primary Routine general medical examination at a health care facility Type 2 diabetes mellitus without complication, without long-term current use of insulin ([facility]) Mixed hyperlipidemia Gastroesophageal reflux disease, unspecified whether esophagitis present PAD (peripheral artery disease) ([facility]) Peripheral vascular disease, unspecified Smoker Tobacco use disorder documented in this encounter [facility] note* Diagnosis Encounter for immunization- Primary Need for other specified prophylactic vaccination against single bacterial disease documented in this encounter [facility] note* Diagnosis Leukocytosis, unspecified type- Primary documented in this encounter [facility] note* Diagnosis Sore throat- Primary Acute pharyngitis Nausea and vomiting, unspecified vomiting type Generalized abdominal pain Abdominal pain, generalized documented in this encounter [facility] note* Diagnosis Lower abdominal pain- Primary Abdominal pain, other specified site Nausea and vomiting, unspecified vomiting type Body aches Generalized pain documented in this encounter [facility] note* Diagnosis Lower abdominal pain Abdominal pain, other specified site documented in this encounter [facility] note* Diagnosis Type 2 diabetes mellitus with diabetic peripheral angiopathy without gangrene, unspecified whether half-way insulin use ([facility])- Primary Tailor's bunion, unspecified laterality documented in this encounter [facility] note* Diagnosis Herpes zoster without complication- Primary Herpes zoster without mention of complication Pain of finger of left hand Pain in limb documented in this encounter [facility] for referral (narrative)* Outpatient Procedure (Routine) - Closed Specialty Diagnoses / Procedures Referred By Ahsan nolasco Referred To Contact [facility] Diagnoses Dysphagia, unspecified type Hernandez's esophagus with dysplasia History of Helicobacter pylori infection Procedures EGD DIAGNOSTIC ESOPHAGOGASTRODUODENOSCO PY TRANSORAL DIAGNOSTIC Soraya Hartman PA-C [address] [place] [address] [address] Referral ID Status Reason Start Date Expiration Date V isits Requested Visits Authorized [id number] Closed Auto-Generate d Referral 10/04/2021 10/04/2022 1 1 * Outpatient Procedure (Routine) - Closed Specialty Diagnoses / Procedures Referred By Contac t Referred To Contact [facility] Diagnoses Family history of colon cancer Procedures COLONOSCOPY SCREENING COLONOSCOPY FLX DX W/COLLJ SPEC WHEN PFRMD Soraya Hartman PA-C [address] [place] [address] [address] Referral ID Status Reason Start Date Expiration Date V isits Requested Visits Authorized [id number] Closed Auto-Generate d Referral 10/04/2021 10/04/2022 1 1 [facility] for referral (narrative)* Diagnostic Procedure Only (Routine) - Closed Specialty Diagnoses / Procedures Referred By Ahsan t Referred To Contact XR IMAGING Diagnoses Pain of finger of left hand Procedures XR DIGIT GENERAL 3V FRONTAL/LAT/OBL LEFT RADEX FINGR MINIMUM 2 VIEWS Julisa Hernandez APRN.RECREATIONAL PROGRAMS DIRECTOR [address] [place] [address] [place] [id number] Referral ID Status Reason Start Date Expiration Date V isits Requested Visits Authorized [id number] Closed Auto-Generate d Referral 01/12/2023 02/11/2024 1 1 Electronically signed by Julisa Hernandez IN STORE REPRESENTATIVE.RECREATIONAL PROGRAMS DIRECTOR at 01/12/2023 11:17 AM EST [facility] for visit Narrative* Outpatient Procedure (Routine) - Closed Specialty Diagnoses / Procedures Referred By Jagdishac t Referred To Contact [facility] Diagnoses Dysphagia, unspecified type Hernandez's esophagus with dysplasia History of Helicobacter pylori infection Procedures EGD DIAGNOSTIC ESOPHAGOGASTRODUODENOSCO PY TRANSORAL DIAGNOSTIC Soraya Hartman PA-C [address] [place] [address] [facility] [address] [place] [address] Referral ID Status Reason Start Date Expiration Date V isits Requested Visits Authorized [id number] Closed Auto-Generate d Referral 10/04/2021 10/04/2022 1 1 [facility] Summary Purpose Family History No Family History Records FoundNo Family History Records FoundNo Family History Records FoundNo Family History Records FoundNo Family History Records Found Advance Directives No Advanced Directives Records FoundDocuments on File Type Date Recorded Patient Small Business Consultant Expl anation Advance Directive(s) 03/24/2021 2:02 PM [...] cancer Procedures CONSULT TO GENERAL SURGERY OFFICE/OUTPATIENT [facility] 60-74 MINUTES Mateo Denise MD [address] [place] [address] Referral ID Status Reason Start Date Expiration Date Visits Requested Visits Authorized [id number] Authorized PCP Requested Referral 10/03/2021 09/29/2022 1 1 Specialty Diagnoses / Procedures Referred By Contac t Referred To Contact Ophthalmology Diagnoses Type 2 diabetes mellitus without complication, without long-term current use of insulin (HCC) Procedures CONSULT TO OPHTHALMOLOGY OFFICE/OUTPATIENT [facility] 60-74 MINUTES Emily Kay PA-C [address] [place] [address] Referral ID Status Reason Start Date Expiration Date Visits Requested Visits Authorized [id number] Authorized PCP Requested Referral 03/16/2022 03/16/2023 1 1 Specialty Diagnoses / Procedures Referred By Contac t Referred To Contact CT IMAGING Diagnoses Lower abdominal pain Nausea and vomiting, unspecified vomiting type Procedures CT ABD/PEL W IVCON CT ABD & PELVIS W/CONTRAST Julisa Hernandez, IN STORE REPRESENTATIVE.RECREATIONAL PROGRAMS DIRECTOR [address] [place] [address] Ct Imaging Referral ID Status Reason Start Date Expiration Date V isits Requested Visits Authorized [id number] Closed Auto-Generat ed Referral Patient Cleared - Admin/Chairm an/Director advise to proceed 02/12/2022 02/11/2023 1 1 Medications Administered Section Inactive Administered Medications - up to 3 most recent administrations Medication Order MAR Action Action Date Dose Rate Site benzocaine 20% 1 Melrude (TOPEX) 1 Melrude, TOPICAL, DIRECTED, Starting on Ángela 10/20/21 at [...] DATE CREATED AUTHOR AUTHOR'S ORGANIZ ATION 04/04/2021 [facility] DATE CREATED AUTHOR AUTHOR'S ORGANIZ ATION 04/09/2021 [facility] DATE CREATED AUTHOR AUTHOR'S ORGANIZ ATION 04/13/2021 [facility] DATE CREATED AUTHOR AUTHOR'S ORGANIZ ATION 02/14/2023 [facility] Source Comments (unrecognize d section and content) In the event this informatio n is protected by the Federal Confidentiality of Alcohol and Drug Abuse Patient Records regulations: The Federal rules restrict any use of the information to criminally investigate or prosecute any alcohol or drug abuse patient.[facility] event this information is protected by the Federal Confidentiality of Alcohol and Drug Abuse Patient Records regulations: The Federal rules restrict any use of the information to criminally investigate or prosecute any alcohol or drug abuse patient.[facility] the event this information is protected by the Federal Confidentiality of Alcohol and Drug Abuse Patient Records regulations: The Federal rules restrict any use of the information to criminally investigate or prosecute any alcohol or drug abuse patient.[facility] the event this information is protected by the Federal Confidentiality of Alcohol and Drug Abuse Patient Records regulations: The Federal rules restrict any use of the information to criminally investigate or prosecute any alcohol or drug abuse patient.[facility] the event this information is protected by the Federal Confidentiality of Alcohol and Drug Abuse Patient Records regulations: The Federal rules restrict any use of the information to criminally investigate or prosecute any alcohol or drug abuse patient.[facility] the event this information is protected by the Federal Confidentiality of Alcohol and Drug Abuse Patient Records regulations: The Federal rules restrict any use of the information to criminally investigate or prosecute any alcohol or drug abuse patient.[facility] the event this information is protected by the Federal Confidentiality of Alcohol and Drug Abuse Patient Records regulations: The Federal rules restrict any use of the information to criminally investigate or prosecute any alcohol or drug abuse patient.[facility] the event this information is protected by the Federal Confidentiality of Alcohol and Drug Abuse Patient Records regulations: The Federal rules restrict any use of the information to criminally investigate or prosecute any alcohol or drug abuse patient.[facility] the event this information is protected by the Federal Confidentiality of Alcohol and Drug Abuse Patient Records regulations: The Federal rules restrict any use of the information to criminally investigate or prosecute any alcohol or drug abuse patient.[facility] the event this information is protected by the Federal Confidentiality of Alcohol and Drug Abuse Patient Records regulations: The Federal rules restrict any use of the information to criminally investigate or prosecute any alcohol or drug abuse patient.[facility] the event this information is protected by the Federal Confidentiality of Alcohol and Drug Abuse Patient Records regulations: The Federal rules restrict any use of the information to criminally investigate or prosecute any alcohol or drug abuse patient.[facility] the event this information is protected by the Federal Confidentiality of Alcohol and Drug Abuse Patient Records regulations: The Federal rules restrict any use of the information to criminally investigate or prosecute any alcohol or drug abuse patient.[facility] the event this information is protected by the Federal Confidentiality of Alcohol and Drug Abuse Patient Records regulations: The Federal rules restrict any use of the information to criminally investigate or prosecute any alcohol or drug abuse patient.[facility] the event this information is protected by the Federal Confidentiality of Alcohol and Drug Abuse Patient Records regulations: The Federal rules restrict any use of the information to criminally investigate or prosecute any alcohol or drug abuse patient.[facility] the event this information is protected by the Federal Confidentiality of Alcohol and Drug Abuse Patient Records regulations: The Federal rules restrict any use of the information to criminally investigate or prosecute any alcohol or drug abuse patient.[facility] the event this information is protected by the Federal Confidentiality of Alcohol and Drug Abuse Patient Records regulations: The Federal rules restrict any use of the information to criminally investigate or prosecute any alcohol or drug abuse patient.[facility] the event this information is protected by the Federal Confidentiality of Alcohol and Drug Abuse Patient Records regulations: The Federal rules restrict any use of the information to criminally investigate or prosecute any alcohol or drug abuse patient.[facility] the event this information is protected by the Federal Confidentiality of Alcohol and Drug Abuse Patient Records regulations: The Federal rules restrict any use of the information to criminally investigate or prosecute any alcohol or drug abuse patient.[facility] the event this information is protected by the Federal Confidentiality of Alcohol and Drug Abuse Patient Records regulations: The Federal rules restrict any use of the information to criminally investigate or prosecute any alcohol or drug abuse patient.[facility] Reason for Visit (unrecogniz ed section and content) Reason Comments Follow Up Reason Comments Follow Up Nail Care nail Care Reason Comments F/U 6 Month Reason Comments Results Reason Comments Consult colonoscopy Specialty Diagnoses / Procedures Referred By Ahsan nolasco Referred To Contact General Surgery Diagnoses Screening for colon cancer Procedures CONSULT TO GENERAL SURGERY OFFICE/OUTPATIENT [facility] 60-74 MINUTES Mateo Denise MD [address] [place] [address] Referral ID Status Reason Start Date Expiration Date V isits Requested Visits Authorized [id number] Closed PCP Requested Referral 10/03/2021 09/29/2022 1 [...] Care Teams (unrecognized sec tion and content) Specification Writer Relationship Specialty Start Date End Date Mateo Denise MD [address] [place] [address] PCP - General Family Practice 11/21/17 Ruth Yeh [facility] [address] [place] [address] Pharmacist Pharmacy 08/13/20 Specification Writer Relationship Specialty Start Date End Date Mateo Denise MD [address] [place] [address] PCP - General Family Practice 11/21/17 Ruth Yeh [facility] [address] [place] [address] Pharmacist Pharmacy 08/13/20 Specification Writer Relationship Specialty Start Date End Date Mateo Denise MD [address] [place] [address] PCP - General Family Practice 11/21/17 Ruth Yeh RPh [address] [place] [address] Pharmacist Pharmacy 08/13/20 Specification Writer Relationship Specialty Start Date End Date Mateo Denise MD [address] [place] [address] PCP - General Family Practice 11/21/17 [place] [facility] [address] [place] [address] Pharmacist Pharmacy 08/13/20 Specification Writer Relationship Specialty Start Date End Date Mateo Denise MD [address] [place] [address] PCP - General Family Practice 11/21/17 [facility] [address] [place] [address] Pharmacist Pharmacy 08/13/20 Specification Writer Relationship Specialty Start Date End Date Mateo Denise MD [address] [place] [address] PCP - General Family Medicine 11/21/17 [place] [facility] [address] [place] [address] Pharmacist Pharmacy 08/13/20 Specification Writer Relationship Specialty Start Date End Date Mateo Denise MD [address] [place] [address] PCP - General Family Medicine 11/21/17 [facility] [address] [place] [address] Pharmacist Pharmacy 08/13/20 Specification Writer Relationship Specialty Start Date End Date Mateo Denise MD [address] [place] [address] PCP - General Family Medicine 11/21/17 [place] Ruth, [facility] [address] [facility] [place] [place] [address] Pharmacist Pharmacy 08/13/20 Specification Writer Relationship Specialty Start Date End Date Mateo Denise MD [address] [facility] [place] [address] PCP - General Family Medicine 11/21/17 [place] Ruth, [facility] [address] [facility] [place] [address] Pharmacist Pharmacy 08/13/20 Specification Writer Relationship Specialty Start Date End Date Mateo Denise MD [address] [place] [address] PCP - General Family Medicine 11/21/17 [place], [facility] [address] [facility] [place] [address] Pharmacist Pharmacy 08/13/20 Specification Writer Relationship Specialty Start Date End Date Mateo Denise MD [address] [place] [address] PCP - General Family Medicine 11/21/17 [place] Ruth, [facility] [address] [facility] [place] [address] Pharmacist Pharmacy 08/13/20 Specification Writer Relationship Specialty Start Date End Date Mateo Denise MD [address] [facility] [place] [address] PCP - General Family Medicine 11/21/17 [place] Ruth, [facility] [address] [facility] [place] [address] Pharmacist Pharmacy 08/13/20 Specification Writer Relationship Specialty Start Date End Date Mateo Denise MD [address] [place] [address] PCP - General Family Medicine 11/21/17 [place], [facility] [address] [place], [place] [address] Pharmacist Pharmacy 08/13/20 Specification Writer Relationship Specialty Start Date End Date Mateo Denise MD [address] [place] [address] PCP - General Family Medicine 11/21/17 [place], [facility] [address] [place] [address] Pharmacist Pharmacy 08/13/20 FOR RECORDS PERTAINING TO [...] BE BASED ON THE PRIMARY CLINICAL RECORDS. [employer] [facility]. provides no warranty or guarantee of the accuracy or completeness of information in this document.
== END 2023-02-19 09:39 | disposition home or self-care (01) ==
PROVIDERS: Emergency Provider Emergency Medicine; PCP Family Medicine; Visit Provider Emergency Medicine
DX: B02.9 Zoster without complications (principal); E11.9 Type 2 diabetes mellitus without complications; F17.210 Nicotine dependence, cigarettes, uncomplicated; I25.10 Atherosclerotic heart disease of native coronary artery without angina pectoris; E78.5 Hyperlipidemia, unspecified
CPT/HCPCS: 99282

== ENCOUNTER → 2023-05-14 | Outpatient (CLI) | payer OTHER, SELFPAY ==
--- NOTE | 2023-05-14 17:55 | CT_ITS ---
STUDY: LOW DOSE CT LUNG CANCER SCREENING REASON FOR EXAM: Male, 57 years old. SMOKER 50 year smoker 1-2 packs per day RADIATION DOSAGE (If Supplied By Facility): CTDIvol = ( 3.02 ) mGy, DLP = ( 101.56 ) mGycm TECHNIQUE: No contrast was administered. Low dose technique was utilized (average mAS-38 and kVp 120). 1.25 mm axial source images with a slice interval of 1.25-mm were reconstructed in lung windows. Oral and sagittal reformats obtained. COMPARISON: None NODULES: No suspicious pulmonary nodules. Parenchyma: Moderate diffuse bilateral centrilobular and paraseptal emphysematous change. Mild bilateral diffuse peribronchial thickening. No consolidation, effusion, or pneumothorax. Endobronchial lesion: Mild layering debris within the left mainstem bronchus. No endobronchial mass is appreciated. Aorta: Mild atherosclerosis without ectasia or intramural hematoma. Left vertebral artery originates from the arch. CORONARY ARTERIES: Multivessel coronary atherosclerosis, severe at the left anterior descending. Heart: No cardiomegaly or pericardial effusion. Pulmonary artery: Unremarkable for noncontrast exam. Mediastinal nodes: Scattered subcentimeter lymph nodes are present, nonpathologic by size criteria. No bulky hilar adenopathy. Other chest and abdominal findings: Unremarkable thyroid. Unremarkable esophagus. CT/Low Dose CT Lung Screening IMPRESSION: No suspicious pulmonary nodules. Moderate diffuse emphysematous change. There is mild peribronchial thickening and mild debris in the left mainstem bronchus as can be seen with mild superimposed acute inflammation. Multivessel coronary atherosclerosis, severe at the left anterior descending Lung-RADS category 1 - Continue annual screening with LDCT in 12 months. IMPORTANT NOTES FOR USE: ACR Lung-RADS Version 1.1 Assessment Categories Release Date: 2018 Category: Coded 0-4 bases on nodule(s) with highest degree of suspicion. Negative screen is defined as categories 1 and 2; a positive screen is defined as categories 3 and 4. Category 3 and 4A nodules that are unchanged on interval CT should be coded as category 2, and individuals returned to screening in 12 months. Category 4X: Category 3 or 4 nodules with additional imaging findings that increase the suspicion of lung cancer, such as spiculation, GGN that doubles in size in 1 year, enlarged lymph notes, etc. Category Modifiers: S (significant finding unrelated to lung cancer) Electronically Signed: Leo Osborne MD at 4:01 EDT ,
== END | disposition home or self-care (01) ==
LOC: CT 17:46
PROVIDERS: PCP Family Medicine; Referring Provider Physician Assistant; Visit Provider Physician Assistant
DX: Z12.2 Encounter for screening for malignant neoplasm of respiratory organs (principal); Z87.891 Personal history of nicotine dependence
CPT/HCPCS: 71271

== ENCOUNTER 2024-08-21 07:57 | Emergency (ER) | payer BC, SELFPAY ==
[2024-08-21 07:58] VITALS: BP 148/91; PULSE 83; RESP 14; TEMP 36.8; O2SAT 98; BMI 25.1
--- NOTE | 2024-08-21 08:26 | ED.VIS.BACK ---
HPI History of Present Illness Chief Complaint: Back Informant: patient Onset/Context/Timing Onset: Month(s) (6) Injury: fall Timing: Continuous Quality: Sharp Location: Lumbar and Buttock (Left) Worsened by: improves with Nothing Relieved by: Nothing Associated Symptoms Associated Symptoms: Radiation to Left Leg (Thigh); Negative for Numbness, Tingling, Radiation to Right Leg, Fever, Abdominal Pain, Dysuria, Unable to Ambulate, Unable to Transfer, Urinary Retention, Urinary Incontinence, Constipation or Fecal Incontinence Narrative Narrative: Patient presents with low back pain that began after a fall 6 months ago. Patient states he had x-rays at that time which were negative. Patient states his pain is mainly over his lower lumbar area and posterior left hip area. Patient states the pain radiates into his thigh. Patient denies any bowel or bladder changes. Patient denies any saddle anesthesia. Patient denies any paresthesias or weakness. Patient states nothing makes his pain better and nothing makes it worse. [facility] Medical History Nicotine dependence PAD (peripheral artery disease) Shingles Hyperglycemia Diabetes mellitus GERD (gastroesophageal reflux disease) Cholecystectomy planned Hyperlipidemia Coronary artery disease Migraines Home Medications ?Medication ?Instructions ?Recorded ?Last Taken ?Type clopidogrel 75 mg tablet 75 mg PO DAILY 05/10/20 Unknown History omeprazole 20 mg capsule,delayed 20 mg PO DAILY 07/16/20 Unknown History release aspirin 81 mg tablet,delayed 81 mg PO DAILY 06/04/23 Unknown History release metformin 500 mg tablet,extended 500 mg PO DAILY 06/04/23 Unknown History release 24 hr ondansetron 4 mg disintegrating 4 mg translingual Q8H PRN nausea 06/04/23 Unknown History tablet and vomiting valacyclovir 1 gram tablet 1,000 mg PO DAILY 06/04/23 Unknown History atorvastatin 40 mg tablet 40 mg PO QHS #90 tabs 06/12/23 Unknown Rx cyclobenzaprine 10 mg tablet 10 mg PO QHS PRN PRN muscle spasm 08/21/24 Unknown Rx #10 tabs oxycodone-acetaminophen 5 mg-325 1 tab PO Q8H PRN pain 3 days #10 08/21/24 Unknown Rx mg tablet (Percocet) tabs Allergy/AdvReac Type Severity Reaction Status Date / Time simvastatin Allergy Intermediate Bodyaches, Verified 06/12/23 11:51 flu like sx tramadol Allergy Rash Verified 06/12/23 11:51 varenicline Allergy Vomiting Verified 06/12/23 11:51 cilostazol AdvReac Abd Verified 06/12/23 11:51 cramps/diarrhea promethazine (From Phenergan) AdvReac Swelling Verified 06/12/23 11:51 Family History Father Asthma Cancer lung COPD (chronic obstructive pulmonary disease) Hypertension Mother Breast cancer Hypertension Grandmother Breast cancer Brother , 42 Colon cancer Surgical History Hx laparoscopic cholecystectomy (~04/14/20) Hx of abdominal surgery History of intravascular stent placement (~2018) Hx of arterial bypass of lower limb (~04/01/21) Social History Smoking Status: Current every day smoker tobacco type: cigarettes alcohol intake: never substance use type: does not use caffeine: Yes Type: coffee Number of servings: 1 ROS ROS ED Constitutional Constitutional ED: Denies chills or fever(s) Eyes Eyes: Denies blurry vision or change in vision ENT ENT ED: Denies rhinorrhea or sore throat Cardiovascular Cardiovascular: Denies chest pain or palpitations Respiratory/Chest Respiratory/Chest: Denies cough or dyspnea Gastrointestinal Gastrointestinal: Reports nausea; Denies vomiting Genitourinary Genitourinary ED: Denies dysuria or hematuria Musculoskeletal Musculoskeletal: Reports back pain; Denies neck pain Integumentary Denies abscess or rash Neurologic Neurologic: Denies headache(s) or weakness Allergic/Immunologic Allergic/Immunologic ED: Denies mouth swelling or urticaria EXAM Physical Exam Const Vital Signs: 08/21/24 07:58 08/21/24 11:57 08/21/24 12:29 Temperature 98.3 F 98.3 F Temperature Source Temporal Pulse Rate 83 98 98 Respiratory Rate 14 16 16 Blood Pressure 148/91 H 136/88 H 136/88 H Blood Pressure Mean 110 104 104 Pulse Ox 98 99 99 Oxygen Delivery Method Room Air Positive well nourished and well developed General Appearance ED: well developed and NAD HEENT Reports moist mucous membranes Neck supple and no JVD Resp normal respiratory effort and clear to auscultation bilaterally Cardio regular rate and regular rhythm GI soft to palpation, non-tender and non-distended Back/Spine Back/Spine Narrative: There is tenderness over the lumbar spine and left lumbar paraspinal muscles. There is no bony crepitance or step-off noted. Range of motion was limited in all motions of the lumbar spine secondary to pain. Strength is 5/5 bilateral in the lower extremities. There are no sensory deficits noted. Lumbar Spine / Lower Back: ROM limited Extremity normal to inspection Neuro oriented x3 and no sensory deficits noted Sensorium / Orientation: alert Motor Exam: strength 5/5 throughout MDM MDM MDM Narrative Medical decision making narrative: Differential diagnosis includes lumbar compression fracture, spondylolisthesis, ureteral calculus, retroperitoneal hematoma, and lumbosacral strain. CBC will be obtained to assess for leukocytosis and anemia. Basic metabolic profile will be obtained to assess for electrolyte abnormality and renal function. Urinalysis will be obtained to assess for urinary tract infection and hematuria. CT scan of the abdomen and pelvis will be obtained to assess for ureteral calculus and retroperitoneal hematoma. History & Record Review Additional record(s) reviewed:: Prior outpatient record, Prior ED visit and Prior labs Lab Data Attestation: I reviewed the patient's lab results. Lab results narrative: CBC was reviewed and was within normal limits. Basic metabolic profile was reviewed and was within normal limits. Urinalysis was reviewed. There is no evidence of urinary tract infection or hematuria. Labs: Laboratory Results - last 24 hr 08/21/24 08/21/24 08:58 09:55 WBC 7.4 RBC 5.01 Hgb 15.2 Hct 45.5 MCV 90.8 MCH 30.3 MCHC 33.4 RDW Std Deviation 44.4 H RDW Coeff of Taras 13.4 Plt Count 147 L MPV 11.0 Immature Gran % (Auto) 0.300 Neut % (Auto) 65.7 Lymph % (Auto) 26.1 Door % (Auto) 6.0 Eos % (Auto) 1.2 Baso % (Auto) 0.7 Absolute Neuts (auto) 4.8 Absolute Lymphs (auto) 1.92 Nucleated RBC % 0 Sodium 137 Potassium 4.6 Chloride 105 Carbon Dioxide 23.0 Anion Gap 9 BUN 20 H Creatinine 1.10 Estim Creat Clear Calc 76.06 Est GFR (MDRD) Non-Af 77 BUN/Creatinine Ratio 18.3 Glucose 139 H Calcium 9.1 Urine Color Yellow Urine Clarity Clear Urine pH 6.0 Ur Specific Henning 1.020 Urine Protein 15 H Urine Glucose (UA) Normal Urine Ketones Negative Urine Occult Blood 10 H Urine Nitrite Negative Urine Bilirubin Negative Urine Urobilinogen Normal Ur Leukocyte Esterase Negative Urine RBC 0-5 SEEN Urine WBC 0-5 SEEN Ur Squamous Epith Cells 0 SEEN Urine Bacteria 0 SEEN Urine Mucus 1+ Radiography Diagnostic Testing: Clinical Impression(s) from Imaging Studies Abdomen/Pelvis CT 08/21/24 08:52 IMPRESSION: 1. Small esophageal hiatal hernia. 2. Hepatomegaly with fatty infiltration. 3. Bilateral nephrolithiasis without hydronephrosis. 4. Umbilical hernia containing fat. 5. Fecal retention in the colon consistent with constipation. 6. Inguinal hernias, bilaterally. Reading Location: [facility] CT scan of the abdomen and pelvis was obtained. There is an umbilical hernia containing fat. There is no ureteral calculus. There is a small hiatal hernia. There is no free air or free fluid. There is no retroperitoneal hematoma. This was interpreted by the radiologist and was also independently reviewed by myself. Treatment and Re-Evaluation Narrative: Patient was given IV fluids, morphine, and Zofran. Patient was given repeat dose of morphine. Patient was also given a dose of oxycodone. Patient was able to ambulate here in the emergency department without difficulty. Patient was advised of his findings. Patient was advised this is most likely musculoskeletal in etiology. Patient was given a prescription for a short course of Percocet. Patient was instructed to follow-up with his primary care physician in 5 to 7 days. Patient was instructed to return if worse in any way. Patient understood and was agreeable with the plan. All questions were answered. Discharge Plan Triage Chief Complaint: Back ED Provider: Stephane Rai Dx/Rx/DC Orders Clinical Impression: Acute low back pain, PAD (peripheral artery disease), Nicotine dependence, Diabetes mellitus Instructions: ED Back Pain (Acute or Chronic), ED Back Sprain/Strain Prescriptions: New oxycodone-acetaminophen [Percocet] 5-325 mg tablet 1 tab PO Q8H PRN (Reason: pain) 3 Days Qty: 10 0RF Changed cyclobenzaprine 10 mg tablet 10 mg PO QHS PRN PRN (Reason: muscle spasm) Qty: 10 0RF No Action metformin 500 mg tablet extended release 24 hr 500 mg PO DAILY valacyclovir 1 gram tablet 1,000 mg PO DAILY ondansetron 4 mg tablet,disintegrating 4 mg translingual Q8H PRN (Reason: nausea and vomiting) Patient Comments: DISSOLVE 1 TABLET IN MOUTH EVERY 8 HOURS NEEDED aspirin 81 mg tablet,delayed release (DR/EC) 81 mg PO DAILY atorvastatin 40 mg tablet 40 mg PO QHS Qty: 90 3RF clopidogrel 75 MG tablet 75 mg PO DAILY omeprazole 20 mg Capsule,Delayed Release(Dr/Ec) 20 mg PO DAILY Primary Care Provider: Mateo Brantley Referrals: Mateo Brantley MD [Primary Care Provider] - 3-5 Days Print Language: Singaporean Disposition Disposition: Home, Self Care Discharge Date/Time: 08/21/24 12:30
--- NOTE | 2024-08-21 08:52 | CT_ITS ---
EXAM: CT Abdomen and Pelvis Without Intravenous Contrast CLINICAL INDICATION: LEFT FLANK AND BACK PAIN TECHNIQUE: Axial computed tomography images of the abdomen and pelvis without intravenous contrast. This CT exam was performed using one or more of the following dose reduction techniques: automated exposure control, adjustment of the mA and/or kV according to patient size, and/or use of iterative reconstruction technique. COMPARISON: No relevant prior studies available. FINDINGS: LUNG BASES: Unremarkable. No mass. No consolidation. MEDIASTINUM: Small esophageal hiatal hernia. ABDOMEN: LIVER: Hepatomegaly with fatty infiltration. GALLBLADDER AND BILE DUCTS: Unremarkable. No calcified stones. No ductal dilation. PANCREAS: Unremarkable. No ductal dilation. SPLEEN: Unremarkable. No splenomegaly. ADRENALS: Unremarkable. No mass. KIDNEYS AND URETERS: Bilateral renal pelvic calculi, largest measuring up to 3 mm. Bilateral renal cysts. STOMACH AND BOWEL: Fecal retention in the colon consistent with constipation. No obstruction. No mucosal thickening. PELVIS: APPENDIX: No findings to suggest acute appendicitis. BLADDER: Unremarkable. No stones. REPRODUCTIVE: Unremarkable as visualized. ABDOMEN and PELVIS: INTRAPERITONEAL SPACE: Unremarkable. No free air. No significant fluid collection. BONES/JOINTS: No acute fracture. No dislocation. SOFT TISSUES: Umbilical hernia containing fat. Inguinal hernias, bilaterally. VASCULATURE: Unremarkable. No abdominal aortic aneurysm. LYMPH NODES: Unremarkable. No enlarged lymph nodes. CT/Abdomen/Pelvis without Cont IMPRESSION: 1. Small esophageal hiatal hernia. 2. Hepatomegaly with fatty infiltration. 3. Bilateral nephrolithiasis without hydronephrosis. 4. Umbilical hernia containing fat. 5. Fecal retention in the colon consistent with constipation. 6. Inguinal hernias, bilaterally. [facility]
[2024-08-21] MEDS: 0.9% Normal Saline (1000mL) 1,000 ML 1000 ML IV (09:04)
[2024-08-21 09:08] LABS: Hematocrit 45.5 % (40-54); Hemoglobin 15.2 g/dL (13.0-16.5); Immature Granulocytes Count 0.020 X10^3/uL (0.0-0.0); Mean Corp Hgb Conc 33.4 g/dL (32-36); Mean Corpuscular Volume 90.8 fL (80-94); Mean Platelet Vol. 11.0 fl (6.2-12.0); NRBC Flagged by Analyzer 0 % (0-5); Platelet Count 147 K/mm3 (150-450); RBC Distribution Width CV 13.4 % (11.6-14.6); RBC Distribution Width SD 44.4 fl (35.1-43.9); Red Blood Count 5.01 M/mm3 (4.6-6.2); White Blood Count 7.4 K/mm3 (4.4-11.0)
[2024-08-21 09:41] LABS: Anion Gap 9 (5-15); BUN 20 mg/dL (4-19); BUN/Creat Ratio 18.3 RATIO (10-20); Calcium,Total 9.1 mg/dL (7.6-11.0); Carbon Dioxide 23.0 mmol/L (21.0-32.0); Chloride 105 mmol/L (98-108); Estimated Creatinine Clearance 76.06 ml/min (50-250); Glucose 139 mg/dL (70-99); Potassium 4.6 mmol/L (3.3-5.1)
[2024-08-21 10:03] LABS: Squamous Epithelial Cells - UA 0 SEEN /hpf (0-5)
[2024-08-21 10:06] LABS: Color, Urine Yellow (Yellow); Glucose, Dipstick Normal (Normal); Ketone-Dipstick Negative (Negative); Leukocyte Esterase-Dipstick Negative /ul (Negative); Nitrite-Dipstick Negative (Negative); Occult Blood-Urine 10 /ul (Negative); Protein-Dipstick 15 mg/dl (Negative); Specific Gravity, Urine 1.020 (1.002-1.030); Urine Bilirubin Dipstick Negative (Negative)
[2024-08-21 10:35] LABS: Mucous, Urine 1+ /hpf (<or=2+); Red Blood Cells-Urine 0-5 SEEN /hpf (0-5)
[2024-08-21 11:57] VITALS: BP 136/88; PULSE 98; RESP 16; O2SAT 99
[2024-08-21 12:29] VITALS: BP 136/88; PULSE 98; RESP 16; TEMP 36.8; O2SAT 99
== END 2024-08-21 12:30 | disposition home or self-care (01) ==
PROVIDERS: Emergency Provider Emergency Medicine; PCP Family Medicine; Visit Provider Emergency Medicine
DX: M54.50 Low back pain, unspecified (principal); E11.51 Type 2 diabetes mellitus with diabetic peripheral angiopathy without gangrene; K44.9 Diaphragmatic hernia without obstruction or gangrene; K21.9 Gastro-esophageal reflux disease without esophagitis; E78.5 Hyperlipidemia, unspecified; I25.10 Atherosclerotic heart disease of native coronary artery without angina pectoris; F17.210 Nicotine dependence, cigarettes, uncomplicated; Z90.49 Acquired absence of other specified parts of digestive tract; Z79.02 Long term (current) use of antithrombotics/antiplatelets; Z79.84 Long term (current) use of oral hypoglycemic drugs; Z79.82 Long term (current) use of aspirin; Z79.899 Other long term (current) drug therapy
CPT/HCPCS: 74176; 80048; 81001; 85025; 96361; 96374; 96375; 96376; 99283; A4216; J2405